=== PATIENT | female | born 1955 | race Caucasian/White ===

== ENCOUNTER 2018-05-01 06:03 | Day surgery (SDC) | payer MEDICARE, OTHER ==
[2018-04-30 13:45] LABS: Source, Urine Clean Catch
[2018-04-30 18:14] LABS: Bacteria Many /hpf; Squamous Epithelial Cells Few /hpf (Few); White Blood Cells, Urine 50-100 /hpf (0-5)
[2018-04-30 18:15] LABS: Calcium Oxalate Crystals Many /hpf; Red Blood Cells, Urine 0-2 /hpf (0-2)
[~2018-05-01] VITALS: Ht 165.1 cm; Wt 84.8 kg
[~2018-05-01 06:03] MED LIST: ACEDIPPM PO; ACYC400 PO; ACYC800 PO; ALPR.25 PO; ALPR.5 PO; AMIT10 PO; AMIT50 PO; AMIT75; AMIT75 PO; AMITRIPTYLINE PO; Amitiza24 MCG PO; Amitriptyline100 MG PO; BUPR150ER PO; CYCL10 PO; Citalopram HBr40 MG PO; DULO30 PO; DULO60 PO; ESOM20 PO; ESTRTP VAG; FAMO20 PO; FOLI400 PO; HYDACE10B PO; LOSHYD; METO10 PO; MYRBETRIQ25 MG PO; NITR100CA PO; Nitrostat0.4 MG SL; Norco 10-325 T1 EACH PO; OLAN10; OMEP20ER PO; OMEPRAZOLE MAGN20 MG PO; OXYC20ER PO; OXYC30ER PO; OXYC40ER PO; Omeprazole20 M1 PO; PROM25 PO; SULTRISS PO; TOBDEXOPO LEFTEYE; TOLT4 PO; [UNRECOGNIZED DRUG - REMARK]; [UNRECOGNIZED DRUG - REMARK]; [UNRECOGNIZED DRUG - REMARK]
--- NOTE | 2018-05-01 06:51 | NUR ---
History, Chart, Medications and Allergies reviewed before start of procedure. Patient confirms NPO status and agrees with scheduled surgery. Lungs clear T/O to Auscultation. Patient reports completing Chlorhexadine shower X2 prior to admission to hospital. Pre-Op teaching done. Pt verbalizes understanding. PATIENT REFUSAL TO REMOVE JEWELRY SIGNED AND ON THE CHART. NOSE PIERCING TAPED.
--- NOTE | 2018-05-01 07:34 | NUR ---
GRAIN LOADER REPORT COMPLETED AT BEDSIDE WITH JONATHAN HARPER. PATIENT UP FOR UNMEASURED VOID IMMEDIATELY PRESURGICALLY. DUE TO LATE IDENTIFIED ELEVATION IN URINE CULTURE BACTERIA, CIPRO 400 MG IV ADDED TO PATIENT'S INTRAOPERATIVE ORDERS. TRACKER EXPLAINED TO SIGNIFICANT OTHER AND OPPORTUNITY FOR QUESTIONS PROVIDED.
--- NOTE | 2018-05-01 18:16 | NUR ---
SHIFT SUMMARY PT EATING AND DRINKING, VOIDING, PASSING GAS. PT PAIN TOLERABLE AT THIS TIME. PT REPORTS GÓMEZ DOING BETTER. PT WORKED WITH THERAPY EARLIER TODAY. PT HAS TEDS/PAS/POLAR PAC IN PLACE. PT BEEN UP TO CHAIR. PT USING CALL LIGHT APPR. PT BEEN ASSISTED WITH ADL'S PRN. FAMILY IN/OUT OF ROOM.
--- NOTE | 2018-05-01 18:27 | NUR ---
PT AMBULATED IN HALLWAY EARLIER WITH SBA WITH WALKER AND GAITBELT.
--- NOTE | 2018-05-02 03:46 | NUR ---
SUMMARY PT HAS DONE WELL THROUGH THE NIGHT. PAIN MANAGED WITH PO PAIN MEDS. TOLERATING PO INTAKE. AMBULATING IN HALLS, 1 ASSIST W/WALKER & GAIT BELT. ASA WRAP REMAINS C/D/I. TEDS ON, SCD'S AND POLAR PACK WHILE IN BED. CALL LIGHT IN REACH. WCTM
[2018-05-02 04:58] LABS: BASOPHILS ABSOLUTE AUTO 0.04 K/mm3 (0.00-0.23); BASOPHILS PERCENT AUTO 0 % (0-2); EOSINOPHILS ABSOLUTE AUTO 0.02 K/mm3 (0.00-0.68); EOSINOPHILS PERCENT AUTO 0 % (0-6); Hematocrit 34.2 % (33.0-51.0); Hemoglobin 10.5 g/dL (11.5-16.0); IMMATURE GRAN ABSOLUTE AUTO 0.05 K/mm3 (0.00-0.10); IMMATURE GRAN PERCENT AUTO 1 % (0-1); LYMPHOCYTES ABSOLUTE AUTO 1.56 K/mm3 (0.84-5.20); LYMPHOCYTES PERCENT AUTO 15 % (21-46); MONOCYTES ABSOLUTE AUTO 1.14 K/mm3 (0.16-1.47); MONOCYTES PERCENT AUTO 11 % (4-13); Mean Corpuscular HGB 33.1 pg (26.0-34.0); Mean Corpuscular HGB Conc 30.7 g/dL (31.5-36.5); Mean Corpuscular Volume 108 fL (80-100); Mean Platelet Volume 9.8 fL (9.1-12.4); NEUTROPHILS ABSOLUTE AUTO 7.66 K/mm3 (1.96-9.15); NEUTROPHILS PERCENT AUTO 73 % (41-73); Platelet Count 148 K/mm3 (150-400); RDW Coefficient Variation 12.9 % (11.7-14.2); RDW Standard Deviation 51.7 fL (35.1-46.3); Red Blood Cell Count 3.17 M/mm3 (3.80-5.20); White Blood Cell Count 10.47 K/mm3 (4.00-11.30)
[2018-05-02 05:14] LABS: Anion Gap 8 mmol/L (6-16); Blood Urea Nitrogen 18 mg/dL (8-24); Bun/Creatinine Ratio 19.7 (12.0-20.0); CO2, Blood 28 mmol/L (21-32); Calcium, Blood 7.9 mg/dL (8.5-10.1); Chloride, Blood 106 mmol/L (98-108); Creatinine, Blood 0.92 mg/dL (0.40-1.00); Glomerular Filtration Rate >60 (60-); Glucose, Blood 91 mg/dL (70-99); Potassium, Blood 3.7 mmol/L (3.5-5.5); Sodium, Blood 142 mmol/L (136-145)
[2018-05-02] MEDS ORDERED: ASPI325EC PO (08:05)
--- NOTE | 2018-05-02 11:25 | NUR ---
PATIENT D/C'D HOME WITH SO AT THIS TIME. PATIENT STATES UNDERSTANDING OF MEDS, ACTIVITY, OP PT, WOUND CARE, ETC. TOLERATING PO. VOIDING WELL. STATES PAIN AT TOLERABLE LEVEL. IV D/C' INTACT, SITE CLEAR. NO ACUTE CHANGES OR C/O.
== END 2018-05-02 11:52 | disposition home or self-care (01) ==
LOC: ORSCMMR 06:03 → ORD 07:30 → ORSCMMR 07:30 → ORD 10:00 → SURS 10:39 → ORSCMMR 05-02 11:52
PROVIDERS: Nurse Practitioner Women's Health; Orthopaedic Surgery
PROC: 0SRC0JA Replacement of Right Knee Joint with Synthetic Substitute, Uncemented, Open Approach (ICD-10-PCS; principal; 2018-05-01 07:30)
DX: M17.11 Unilateral primary osteoarthritis, right knee (principal); F31.9 Bipolar disorder, unspecified; Z79.899 Other long term (current) drug therapy
CPT/HCPCS: 36415; 73560-RT; 80048; 81015; 85025; 86850; 86900; 86901; 87077; 87086; 87186; 88300; 97110; 97116; 97162; 97530; C1776; J0171; J0690; J0735; J0744; J1100; J1885; J2250; J2370; J2405; J2795; J3010; J7120; Q0163

== ENCOUNTER → 2018-05-14 | Outpatient (CLI) | payer MEDICARE, OTHER ==
[~2018-05-14] MED LIST changes: +ASPI325EC PO
[2018-05-14 14:09] LABS: Source, Urine Clean Catch
[2018-05-14 17:59] LABS: Appearance, Urine Hazy (Clear); Bilirubin, Urine Neg (Neg); Blood, Urine 1+ (Neg); Color, Urine Yellow (P-Yellow); Glucose Qualitative, Urine Neg (Neg); Ketones, Urine 1+ (Neg); Leukocyte Esterase, Urine 3+ (Neg); Nitrite, Urine Neg (Neg); Protein, Urine 2+ (Neg); Specific Gravity, Urine 1.015 (1.003-1.022); Urobilinogen, Urine 2+ (Normal); pH, Urine 6.5 (5.0-8.0)
[2018-05-14 18:47] LABS: White Blood Cells, Urine 50-100 /hpf (0-5)
[2018-05-14 18:48] LABS: Bacteria Many /hpf; Squamous Epithelial Cells Mod /hpf (Few); Uric Acid Crystals Few /hpf
== END ==
LOC: LAB 14:02 → LAB SHORT 14:02
PROVIDERS: Nurse Practitioner Women's Health
DX: Z01.812 Encounter for preprocedural laboratory examination (principal); N39.46 Mixed incontinence
CPT/HCPCS: 81001; 87077; 87086; 87186

== ENCOUNTER → 2018-09-11 | Outpatient (CLI) | payer MEDICARE, OTHER ==
[2018-09-11 11:39] LABS: Source, Urine Clean Catch
[2018-09-11 13:05] LABS: Bilirubin, Urine Neg (Neg); Blood, Urine 1+ (Neg); Glucose Qualitative, Urine Neg (Neg); Ketones, Urine 1+ (Neg); Leukocyte Esterase, Urine 3+ (Neg); Nitrite, Urine Pos (Neg); Protein, Urine 2+ (Neg); Specific Gravity, Urine 1.025 (1.003-1.022); Urobilinogen, Urine 2+ (Normal)
[2018-09-11 13:18] LABS: Appearance, Urine Hazy (Clear); Color, Urine Yellow (P-Yellow)
[2018-09-11 13:19] LABS: Bacteria Mod /hpf; Red Blood Cells, Urine 0-2 /hpf (0-2); Squamous Epithelial Cells Few /hpf (Few)
== END ==
LOC: LAB SHORT 11:36 → LAB 11:36
PROVIDERS: Obstetrics & Gynecology
DX: Z01.812 Encounter for preprocedural laboratory examination (principal); N39.46 Mixed incontinence; N36.42 Intrinsic sphincter deficiency (ISD)
CPT/HCPCS: 81001; 87077; 87086; 87186

== ENCOUNTER 2019-03-28 12:42 | Inpatient (IN) | payer MEDICARE, OTHER ==
[~2019-03-28] VITALS: Ht 170.2 cm; Wt 84.8 kg
[~2019-03-28 12:42] MED LIST changes: -AMIT10 PO; +Amitriptyline150 MG PO
[2019-03-28 13:17] LABS: Hematocrit 35.8 % (33.0-51.0); Hemoglobin 11.4 g/dL (11.5-16.0); Mean Corpuscular HGB 32.4 pg (26.0-34.0); Mean Corpuscular HGB Conc 31.8 g/dL (31.5-36.5); Mean Corpuscular Volume 102 fL (80-100); Mean Platelet Volume 10.2 fL (9.1-12.4); Platelet Count 197 K/mm3 (150-400); RDW Coefficient Variation 13.1 % (11.7-14.2); Red Blood Cell Count 3.52 M/mm3 (3.80-5.20); White Blood Cell Count 17.01 K/mm3 (4.00-11.30)
[2019-03-28 13:25] LABS: Influenza A Negative (NEGATIVE); Influenza B Negative (NEGATIVE)
[2019-03-28 13:38] LABS: Alanine Aminotransfer (ALT/SGP 15 U/L (12-78); Albumin, Blood 2.7 g/dL (3.4-5.0); Albumin/Globulin Ratio 0.7 (0.8-1.8); Alk Phos 91 U/L (50-136); Anion Gap 9 mmol/L (6-16); Aspartate Aminotrans (AST/SGOT 20 U/L (12-37); Bilirubin, Total 0.6 mg/dL (0.1-1.0); Blood Urea Nitrogen 21 mg/dL (8-24); Bun/Creatinine Ratio 24.1 (12.0-20.0); CO2, Blood 25 mmol/L (21-32); Calcium, Blood 8.2 mg/dL (8.5-10.1); Chloride, Blood 102 mmol/L (98-108); Creatinine, Blood 0.87 mg/dL (0.40-1.00); Globulin, Blood 4.1 g/dL (2.2-4.0); Glomerular Filtration Rate >60 (60-); Glucose, Blood 84 mg/dL (70-99); Potassium, Blood 3.3 mmol/L (3.5-5.5); Sodium, Blood 136 mmol/L (136-145); Total Protein, Blood 6.8 g/dL (6.4-8.2)
[2019-03-28 13:40] LABS: BAND PERCENT MAN 29 % (0-8); BASOPHILS PERCENT MAN 0 % (0-2); EOSINOPHILS PERCENT MAN 0 % (0-6); LYMPHOCYTES PERCENT MAN 10 % (21-46); MONOCYTES ABSOLUTE MAN 0.68 K/mm3 (0.16-1.47); MONOCYTES PERCENT MAN 4 % (4-13); NEUTROPHILS ABSOLUTE MAN 14.62 K/mm3 (1.96-9.15); SEG NEUTROPHILS PERCENT MAN 57 % (41-73); TOTAL CELLS COUNTED 100
[2019-03-28] MEDS ORDERED: Paxil20 MG PO (15:12)
[2019-03-28] MEDS ORDERED: CELECOXIB200 MG PO (15:16)
--- NOTE | 2019-03-28 16:15 | NUR ---
PATIENT ARRIVED TO ICU ROOM 11 AFTER RECEIVING REPORT FROM JONATHAN ROSALES, ED, PATIENT ABLE TO AMBULATE FROM STRETCHER TO ROOM TOILET, VOIDED, AND THEN TO BED, SLIGHTLY SHORT OF BREATH AND TACHYPNEIC AFTER AMBULATION, PATIENT WAS PLACED ON MONITOR AND SBP IN UPPER 90'S WITH O2 SATUARTION IN MID 90'S ON RA, PATIENT ENCOURAGED TO COUGH AND BRING UP SECRETIONS, PATIENT VERBALIZED UNDERSTANDING, PATIENT ALSO STATED THAT SHE WANTS TO BE A FULL CODE AND EVERYTHING DONE WHILE IN THE HOSPITAL, AT BEDSIDE, PATIENT IS AFEBRILE, DENIES PAIN, ALERT AND ORIENTED x4, LUNG SOUNDS ARE COARSE, AND TIGHT THROUGHOUT, PATIENT HAS A HISTORY OF THROAT RECONSTRUCTION SURGERY A CHILD AND HAS PROBLEMS SWALLOWING AT TIMES, SUFFERS FROM CHRONIC CONSTIPATION WITH PERIODS OF TWO WEEKS WITHOUT HAVING A BM, VOIDS WITHOUT PROBLEMS, CLEAR YELLOW URINE, WARM BLANKETS GIVEN, CALL LIGHT GIVEN AND EXPLAINED, PATIENT VERBALIZED UNDERSTANDING, ORIENTED TO ROOM AND NEW ENVIRONMENT, THIRD LITER OF NS INFUSING WIDE OPEN, AZITHROMYCIN INFUSING WELL, THEN LR AT 12 CC/HR, LAB CALLED AND ASKED FOR A URINE SAMPLE, ALSO IMAGING HERE TO DO ORDERED ECHO, PATIENT IS RESTING WELL AT THIS TIME, CALL LIGHT IN REACH, WILL CONTINUE TO MONITOR.
--- NOTE | 2019-03-28 17:55 | NUR ---
PATIENT RESTING COMFORTABLY, FAMILY WAS AT BEDSIDE BUT WENT HOME, ECHO DONE, UA SENT, PATIENT UP TO ROOM TOILET WITH ONE ASSIST, SBP'S NOW IN LOW 100'S, SECOND PIV STARTED ON EARL, PATIENT TOLERATED WELL, IVF'S LR AT 125 CC/HR INFUSING NOW AFTER 3 L NS BOLUSES ALSO HAS POTASSIUM CHLORIDE 20 MEQ'S INFUSING, K+ 3.3, PATIENT TRYING TO RELAX AND GET COMFORTABLE, CALL LIGHT IN REACH, WILL CONTINUE TO MONITOR.
[2019-03-28 18:08] LABS: Source, Urine Clean Catch
[2019-03-28 18:12] LABS: Appearance, Urine Hazy (Clear); Bilirubin, Urine Neg (Neg); Blood, Urine 1+ (Neg); Color, Urine Yellow (P-Yellow); Glucose Qualitative, Urine Neg (Neg); Ketones, Urine Neg (Neg); Leukocyte Esterase, Urine 3+ (Neg); Nitrite, Urine Pos (Neg); Protein, Urine Neg (Neg); Specific Gravity, Urine 1.015 (1.003-1.022); Urobilinogen, Urine 1+ (Normal)
[2019-03-28 18:23] LABS: Bacteria Many /hpf; Calcium Oxalate Crystals Few /hpf; Red Blood Cells, Urine 0-2 /hpf (0-2); Squamous Epithelial Cells Few /hpf (Few); White Blood Cells, Urine 50-100 /hpf (0-5)
--- NOTE | 2019-03-28 19:31 | NUR ---
ASSUMED CARE OF PT, BEDSIDE REPORT RECEIVED. PT IS SITTING UPRIGHT IN BED WITH ARMS BRACED AGAINST BEDRAILS, C/O FEELING THAT SHE IS TOO HOT AT THIS TIME. SHE IS SPEAKING IN FEW WORD SENTENCES WITH VISIBLE INCREASED WORK OF BREATHING AT THIS TIME, RESP RATE MID 20S, SATS HIGH 90S WITH OXYGEN VIA NC AT 3 L/MIN, PT STATES THAT BREATHING IS ACTUALLY FEELING IMPROVED FROM ARRIVAL IN ER, LUNGS ARE COARSE THROUGHOUT WITH SCATTERED INS/EXP WHEEZES, COUGH SOUNDS PRODUCTIVE HOWEVER NO SPUTUM HAS BEEN OBTAINED OF THIS TIME. PT ENCOURAGED TO PROVIDE SPUTUM SPECIMEN SOON SHE IS ABLE. HRR, SINUS ON MONITOR, RATE 80S AT THIS TIME, PRESSURE MAINTAINING, SKIN PWD, NO EDEMA, BRISK CAP REFILL. ABD SOFT, ACTIVE BOWEL TONES, PT DID NOT TOLERATE DINNER WELL SECONDARY TO INCREASED DYSPNEA, SHE REQUESTS SOMETHING TO SNACK ON AT THIS TIME, DISCUSSED SMALLER AMOUNTS PO AND INCREASED FREQUENCY IN ORDER TO TOLERATE PO INTAKE AT THIS TIME, JELLO PROVIDED, WILL MONITOR. PT HAS BEEN UP TO VOID WITH DAY SHIFT RN, WILL ASSIST NEEDED.
[2019-03-28 21:20] LABS: Adenovirus Not Detected (NOT DETECT); Bordetella pertussis Not Detected (NOT DETECT); Chlamydophila pneumoniae Not Detected (NOT DETECT); Coronavirus 229E Not Detected (NOT DETECT); Coronavirus HKU1 Not Detected (NOT DETECT); Coronavirus NL63 Not Detected (NOT DETECT); Coronavirus OC43 Not Detected (NOT DETECT); Human Metapneumovirus Not Detected (NOT DETECT); Human Rhinovirus/Enterovirus Not Detected (NOT DETECT); Influenza A Not Detected (NOT DETECT); Influenza A/2009-H1 Not Detected (NOT DETECT); Influenza A/H1 Not Detected (NOT DETECT); Influenza A/H3 Not Detected (NOT DETECT); Influenza B Not Detected (NOT DETECT); Mycoplasma pneumoniae Not Detected (NOT DETECT); Parainfluenza Virus 1 Not Detected (NOT DETECT); Parainfluenza Virus 2 Not Detected (NOT DETECT); Parainfluenza Virus 3 Not Detected (NOT DETECT); Parainfluenza Virus 4 Not Detected (NOT DETECT); Respiratory Syncytial Virus Detected (NOT DETECT)
[2019-03-29 01:53] LABS: Hematocrit 30.1 % (33.0-51.0); Hemoglobin 9.8 g/dL (11.5-16.0); Mean Corpuscular HGB 33.7 pg (26.0-34.0); Mean Corpuscular HGB Conc 32.6 g/dL (31.5-36.5); Mean Corpuscular Volume 103 fL (80-100); Mean Platelet Volume 10.6 fL (9.1-12.4); Platelet Count 141 K/mm3 (150-400); RDW Coefficient Variation 13.2 % (11.7-14.2); RDW Standard Deviation 49.8 fL (35.1-46.3); Red Blood Cell Count 2.91 M/mm3 (3.80-5.20); White Blood Cell Count 10.89 K/mm3 (4.00-11.30)
[2019-03-29 01:56] LABS: Anion Gap 3 mmol/L (6-16); Blood Urea Nitrogen 17 mg/dL (8-24); Bun/Creatinine Ratio 23.7 (12.0-20.0); CO2, Blood 25 mmol/L (21-32); Calcium, Blood 7.5 mg/dL (8.5-10.1); Chloride, Blood 114 mmol/L (98-108); Creatinine, Blood 0.72 mg/dL (0.40-1.00); Glomerular Filtration Rate >60 (60-); Glucose, Blood 119 mg/dL (70-99); Potassium, Blood 4.4 mmol/L (3.5-5.5); Sodium, Blood 142 mmol/L (136-145); Troponin I 0.023 ng/mL (0.000-0.040)
[2019-03-29 02:13] LABS: BAND PERCENT MAN 22 % (0-8); BASOPHILS PERCENT MAN 0 % (0-2); EOSINOPHILS PERCENT MAN 0 % (0-6); LYMPHOCYTES ABSOLUTE MAN 0.76 K/mm3 (0.84-5.20); LYMPHOCYTES PERCENT MAN 7 % (21-46); MONOCYTES PERCENT MAN 1 % (4-13); NEUTROPHILS ABSOLUTE MAN 10.01 K/mm3 (1.96-9.15); SEG NEUTROPHILS PERCENT MAN 70 % (41-73); TOTAL CELLS COUNTED 100
--- NOTE | 2019-03-29 05:51 | NUR ---
PT RESTS QUIETLY THROUGHOUT SHIFT, TOLERATES LIQUIDS WELL, DID NOT TOLERATE HAMBURGER THAT SHE HAD ORDERED FOR DINNER LAST NOC JUST PRIOR TO SHIFT CHANGE SECONDARY TO INCREASED DYSPNEA WITH EATING. LUNGS REMAIN COARSE WITH SCATTERED INS/EXP WHEEZES, SENTENCES ARE SHORT, PT STATES THAT BREATHING DOES FEEL IMPROVED FROM ARRIVAL TO ER, SHE HAS MAINTAINED SATS WITH OXYGEN AT 3 L/MIN VIA NASAL CANNULA THROUGHOUT NOC, INTERMITTENT DYSPNEA NOTED AT REST, CONSISTENT DYSPNEA ON EXERTION. HRR, SINUS RHYTHM CONTINUES RATE 80-90S, PRESSURES HAVE IMPROVED THROUGHOUT NOC, CONTINUES WITHOUT EDEMA, CAP REFILL BRISK. URINE COLOR HAS IMPROVED TO CLEAR TANYA, STRONG ODOR NOTED. PT UP TO BSC WITH 1 PERSON SBA FOR LINE MANAGEMENT, GAIT IS STEADY, SHE IS NOTED TO HAVE INCREASED WORK OF BREATHING WHEN UP HOWEVER RECOVERS WITHIN 3 MINUTES ON RETURN TO BED. SHE HAS REPOSITIONED HERSELF WELL THROUGHOUT NOC.
--- NOTE | 2019-03-29 07:30 | NUR ---
ASSUMED CARE AT 0700. REPORT FROM EILEEN CASTILLO. PT RESTING IN BED. A&O X 4. ANSWERS QUESTIONS APPROPRIATELY. C/O SOB c MINIMAL EXERTION. PT ON 2L O2 VIA NC. O2 SATS MID 90'S. LUNGS COARSE THROUGHOUT c WHEEZING. TACHYPNEIC, LABORED RESP. RATE INCREASES WHEN PT TRYING TO SPEAK. ABLE TO TRANSFER TO BSC BUT BECOMES SOB, TACHYPNEIC. ASSISTED TO RECLINER. PT C/O CHRONIC BACK PAIN, STATES HOME MEDS HAVE NOT BEEN ORDERED FOR HER, WILL DISCUSS c DR MCCALL. IVF INFUSING s DIFFICULTY. CALL LIGHT IN REACH. WILL CONTINUE TO MONITOR.
--- NOTE | 2019-03-29 09:40 | NUR ---
DR MCCALL IN ROOM TO SEE PT THIS AM. O2 REMOVED DURING ASSESSMENT. WHEN ASSISTED PT TO BSC AND BACK TO BED, PT BECAME TACHYPNEIC AND C/O SOB, O2 SATS REMAINED MID 90'S. O2 PLACED AT 2L VIA NC FOR COMFORT. RT AT BEDSIDE FOR BREATHING TX. IVF D/C'D PER DR MCCALL. WILL CONTINUE TO MONITOR.
--- NOTE | 2019-03-29 11:56 | NUR ---
CALL FROM DR. NI DAN STATES THAT GIVEN THE PT'S SYMPTOMS, HE WILL NOT PLAN ON ENDOSCOPY AT THIS TIME. PT MAY EAT REGULAR DIET TOLERATED AND HE WILL SEE HER THIS AFTERNOON.
--- NOTE | 2019-03-29 17:49 | NUR ---
SHIFT SUMMARY PT A&O X 4. HAS BEEN UP TO CHAIR MULTIPLE TIMES TODAY. PT SOB AND TACHYPNEIC c MINIMAL EXERTION. LUNGS COARSE THROUGHOUT c RHONCHI. PT P/W/D. PT WORE O2 INTERMITTANTLY THIS SHIFT FOR COMFORT. O2 SATS REMAINED MID 90'S ON RA. PT CURRENTLY ON RA. VSS. PT SEEN BY JOSE R DAN AND CAL TODAY. REPORT TO ONCOMING NURSE.
[2019-03-30 04:05] LABS: BASOPHILS ABSOLUTE AUTO 0.01 K/mm3 (0.00-0.23); BASOPHILS PERCENT AUTO 0 % (0-2); EOSINOPHILS PERCENT AUTO 0 % (0-6); Hematocrit 31.5 % (33.0-51.0); Hemoglobin 10.3 g/dL (11.5-16.0); IMMATURE GRAN ABSOLUTE AUTO 0.08 K/mm3 (0.00-0.10); IMMATURE GRAN PERCENT AUTO 1 % (0-1); LYMPHOCYTES ABSOLUTE AUTO 0.67 K/mm3 (0.84-5.20); LYMPHOCYTES PERCENT AUTO 8 % (21-46); MONOCYTES ABSOLUTE AUTO 0.34 K/mm3 (0.16-1.47); MONOCYTES PERCENT AUTO 4 % (4-13); Mean Corpuscular HGB 33.9 pg (26.0-34.0); Mean Corpuscular HGB Conc 32.7 g/dL (31.5-36.5); Mean Corpuscular Volume 104 fL (80-100); Mean Platelet Volume 10.2 fL (9.1-12.4); NEUTROPHILS ABSOLUTE AUTO 7.65 K/mm3 (1.96-9.15); NEUTROPHILS PERCENT AUTO 87 % (41-73); Platelet Count 190 K/mm3 (150-400); RDW Coefficient Variation 13.3 % (11.7-14.2); RDW Standard Deviation 49.7 fL (35.1-46.3); Red Blood Cell Count 3.04 M/mm3 (3.80-5.20); White Blood Cell Count 8.75 K/mm3 (4.00-11.30)
[2019-03-30 04:28] LABS: Albumin, Blood 2.2 g/dL (3.4-5.0); Anion Gap 5 mmol/L (6-16); Blood Urea Nitrogen 14 mg/dL (8-24); Bun/Creatinine Ratio 23.5 (12.0-20.0); CO2, Blood 25 mmol/L (21-32); Calcium, Blood 8.3 mg/dL (8.5-10.1); Chloride, Blood 111 mmol/L (98-108); Glomerular Filtration Rate >60 (60-); Glucose, Blood 126 mg/dL (70-99); Phosphorus, Blood 2.4 mg/dL (2.5-4.9); Sodium, Blood 141 mmol/L (136-145)
--- NOTE | 2019-03-30 06:46 | NUR ---
PT A&O, PAIN CONTROLLED WITH OXY AND NORCO. ANXIETY CONTOLLED WITH XANAX. O2 VIA NC FOR COMFORT WHEN PT FEELS SOB, ELEVATED BLOOD PRESSURE POSSIBLY PAIN AND ANXIETY RELATED. NO ACUTE EVENTS, PLAN TO CHANGE STATUS IN THE AM.
--- NOTE | 2019-03-30 07:20 | NUR ---
ASSUMED CARE AT 0700. PT RESTING IN BED. WAKES c VERBAL STIMULI. C/O CHRONIC BACK PAIN, REQUESTING MEDS WHEN APPROPRIATE TIME. REPORTS CONTINUES SOB c EXERTION LAST NOC. CONTINUES TO BE TACHYPNEIC. STATES SHE WAS NERVOUS TO FALL, CAUSING INCREASED ANXIETY AND SOB. INTERMITTANTLY USING 2L O2 VIA NC FOR SOB. O2 SATS REMAIN >95% ON RA. HTN NOTED, PT DENIES HX OF THIS. LUNGS COARSE THROUGHOUT. PT P/W/DAngelita RENEE. WILL CONTINUE TO MONITOR.
--- NOTE | 2019-03-30 08:50 | NUR ---
DR MCCALL AT BEDSIDE FOR ASSESSMENT. PLAN FOR CHEST XRAY, MRSA SWAB FROM [facility] SENT TO LAB. POSSIBLE STATUS CHANGE TODAY.
[2019-03-30 14:36] LABS: PO2 Arterial 101 mmHg (80-100); pH Blood Arterial 7.27 (7.35-7.45)
--- NOTE | 2019-03-30 14:45 | NUR ---
PT SITTING IN CHAIR FAMILY AT BEDSIDE. PT DIFFICULT TO WAKE, WAKES c PAINFUL STIMULI, ANSWERS QUESTIONS APPROPRIATELY, FOLLOWS COMMANDS BUT APPEARS TO FALL ASLEEP WHEN UNDISTURBED. TACHPNEIC. RT CALLED FOR ABG. CHEMBG 138. MOVED PT TO BED. 2ND IV STARTED. O2 SATS 85% WHEN O2 REMOVED, REPLACED 2L NC, O2 SATS MID 90'S. CALL PLACED TO DR MCCALL. NOTIFIED OF LABS, ORDERS FOR BIPAP AND PT TO REMAIN IN ICU. RT IN ROOM FOR BIPAP PLACEMENT. FAMILY UPDATED.
--- NOTE | 2019-03-30 17:18 | NUR ---
SHIFT SUMMARY ATTEMPTED TO STATUS CHANGE PT TODAY. PT INCREASINGLY SOMNOLENT DURING THIS SHIFT. SEE NOTE. PT RESPONDED WELL TO BIPAP. ALERTNESS IMPROVED, RESPONSES TO VERBAL STIMULI. MAKING CONVERSATION c SO IN ROOM. LUNGS CONTINUE TO BE COARSE c CRACKLES TO LEFT SIDE. VSS. REPORT TO ONCOMING NURSE.
--- NOTE | 2019-03-30 19:33 | NUR ---
ASSUME CARE ASSUMED CARE OF PT AT 1900. PATIENT DROWSY, BUT AROUSABLE. PT ON BIPAP / 35% SATS ABOVE 94%. LUNGS COARSE THROUGHOUT, LEFT SIDE WORSE. PULSES STRONG THROUGHOUT. PATIENT A&OX3. AND BEDSIDE. PATIENT IVS PATENT WITH GOOD BLOOD RETURN AND INFUSING. WILL CONTINUE TO [facility].
[2019-03-31 03:42] LABS: BASOPHILS ABSOLUTE AUTO 0.03 K/mm3 (0.00-0.23); BASOPHILS PERCENT AUTO 0 % (0-2); EOSINOPHILS PERCENT AUTO 0 % (0-6); Hematocrit 33.8 % (33.0-51.0); Hemoglobin 11.2 g/dL (11.5-16.0); IMMATURE GRAN ABSOLUTE AUTO 0.36 K/mm3 (0.00-0.10); IMMATURE GRAN PERCENT AUTO 3 % (0-1); LYMPHOCYTES ABSOLUTE AUTO 1.24 K/mm3 (0.84-5.20); LYMPHOCYTES PERCENT AUTO 12 % (21-46); MONOCYTES ABSOLUTE AUTO 0.71 K/mm3 (0.16-1.47); MONOCYTES PERCENT AUTO 7 % (4-13); Mean Corpuscular HGB 35.9 pg (26.0-34.0); Mean Corpuscular HGB Conc 33.1 g/dL (31.5-36.5); Mean Platelet Volume 10.2 fL (9.1-12.4); NEUTROPHILS ABSOLUTE AUTO 8.33 K/mm3 (1.96-9.15); NEUTROPHILS PERCENT AUTO 78 % (41-73); Platelet Count 238 K/mm3 (150-400); RDW Coefficient Variation 13.9 % (11.7-14.2); RDW Standard Deviation 52.6 fL (35.1-46.3); Red Blood Cell Count 3.12 M/mm3 (3.80-5.20); White Blood Cell Count 10.67 K/mm3 (4.00-11.30)
[2019-03-31 03:43] LABS: Mean Corpuscular Volume 108 fL (80-100)
[2019-03-31 04:00] LABS: Alanine Aminotransfer (ALT/SGP 17 U/L (12-78); Albumin, Blood 2.4 g/dL (3.4-5.0); Albumin/Globulin Ratio 0.6 (0.8-1.8); Alk Phos 88 U/L (50-136); Anion Gap 4 mmol/L (6-16); Aspartate Aminotrans (AST/SGOT 22 U/L (12-37); Bilirubin, Total 0.3 mg/dL (0.1-1.0); Blood Urea Nitrogen 18 mg/dL (8-24); Bun/Creatinine Ratio 27.7 (12.0-20.0); CO2, Blood 29 mmol/L (21-32); Calcium, Blood 8.7 mg/dL (8.5-10.1); Chloride, Blood 109 mmol/L (98-108); Creatinine, Blood 0.65 mg/dL (0.40-1.00); Glomerular Filtration Rate >60 (60-); Glucose, Blood 77 mg/dL (70-99); Potassium, Blood 3.8 mmol/L (3.5-5.5); Sodium, Blood 142 mmol/L (136-145); Total Protein, Blood 6.4 g/dL (6.4-8.2)
[2019-03-31 04:06] LABS: Percent Saturation 22.5 % (15.0-50.0)
--- NOTE | 2019-03-31 05:56 | NUR ---
SHIFT SUMMARY PATIENT WORE BIPAP FOR MOST OF THE NIGHT. 10 25%. PATIENT ABLE TO COUGH UP SECRETIONS MORE EFFECTIVELY, PATIENT A&O. FOLLOWS COMMANDS, WAKES UP WITH VERBAL STIMULI. EASY TO AROUSE. PATIENT STATES SHE FEELS LIKE SHE IS GOING TO R/T CURRENT ILLNESS. PATIENT REFUSED NARCOTICS/PAIN MEDS/ANXIOLYTICS FOR FEAR OF BEING TOO SLEEPY TO BREATHE WELL. CHRONIC PAIN AN ISSUE, BUT PATIENT REFUSED ANYTHING OTHER THAN TYLENOL SO SBP WAS HIGHER. PATIENT UP TO BEDSIDE COMMODE WITH MINIMAL ASSIST. VSS. AFEBRILE. WILL CONTINUE TO MONITOR UNTIL REPORT GIVEN TO DAY SHIFT RN.
--- NOTE | 2019-03-31 07:40 | NUR ---
ASSUMED CARE OF PT AT 0700. REPORT FROM CAMRYN CASTILLO. PT RESTING IN BED. BIPAP IN PLACE, 03/07 25%. LUNGS COARSE THROUGHOUT c RHONCI ON LEFT SIDE. WET COUGH. PT P/W/D. ANSWERS QUESTIONS APPROPRIATELY. ABLE TO REPOSITION SELF IN BED. HTN NOTED. PT C/O BACK PAIN. REPORTS MODERATE RELIEF FROM TYLENOL LAST NOC. WILL CONTINUE TO MONITOR.
--- NOTE | 2019-03-31 09:07 | NUR ---
DR MCGOWAN AT BEDSIDE. PT UP TO CHAIR FOR BREAKFAST. BIPAP REMOVED. PLACED PT ON 2L O2 VIA NC. O2 SATS >95%. PT A&OX 4. WILL CONTINUE TO MONITOR.
--- NOTE | 2019-03-31 09:50 | NUR ---
DR MCCALL IN TO SEE PT, CARE DISCUSSED. PLAN FOR O2 SATS 90-98%. MONITOR FOR AMS. WILL ATTEMPT TO HAVE PT WEAR BIPAP MUCH POSSIBLE TODAY. PT REFUSING ANY PAIN MEDS AT THIS TIME. REQUESTING XANAX. WILL MEDICATE ORDERED.
--- NOTE | 2019-03-31 17:44 | NUR ---
SHIFT SUMMARY PT INTERMITTANTLY WORE BIPAP TODAY, C/O ANXIETY AND INABILITY TO RELAX. RESTARTED HOME PAIN MEDS AT LOWER DOSE TO AVOID WITHDRAWLS. MEDICATED c XANEX NEEDED. PT ON RA WHEN NOT ON BIPAP. PT REMAINED A&OX 4 ENTIRE SHIFT. LUNGS CONTINUE TO BE COARSE THROUGHOUT c RHONCI ON LEFT SIDE. INCREASED PRODUCTIVE COUGH c FOREMAN SPUTUM. REPORT TO ONCOMING NURSE.
--- NOTE | 2019-03-31 19:10 | NUR ---
ASSUME CARE: REPORT RECIEVED FROM OFF GOING RN TAINA. MONITOR INTACT SHOWING SINUS RHYTHM. HEART RATE 90'S. RESTS QUIETLY WHEN UNDISTURBED.REMAINS ON BIPAP 12/5 WITH FIO2 21% LUNG SOUNDS COARSE WITH RHONCHI. BECOMES TACHYPNIC WITH ACTIVITY. SPO2 92-94% ABDOMEN SOFT WITH BOWEL SOUNDS FOUR QUADS. VOIDS TANYA URINE PER BSC. COOPERATIVE TO CARES. PAS TO LOWER EXTREMITIES. CONTINUE TO MONITOR AND REPORT CHANGE IN PATIENT CONDITION. PEDAL PULSES PRESENT NO EDEMA NOTED
[2019-04-01 04:08] LABS: Mean Corpuscular HGB 33.5 pg (26.0-34.0); Mean Corpuscular HGB Conc 33.3 g/dL (31.5-36.5); Mean Platelet Volume 9.7 fL (9.1-12.4); Platelet Count 207 K/mm3 (150-400); RDW Coefficient Variation 12.8 % (11.7-14.2); RDW Standard Deviation 45.9 fL (35.1-46.3); Red Blood Cell Count 3.28 M/mm3 (3.80-5.20); White Blood Cell Count 7.92 K/mm3 (4.00-11.30)
[2019-04-01 04:11] LABS: Mean Corpuscular Volume 101 fL (80-100)
[2019-04-01 04:39] LABS: Alanine Aminotransfer (ALT/SGP 17 U/L (12-78); Albumin, Blood 2.1 g/dL (3.4-5.0); Albumin/Globulin Ratio 0.6 (0.8-1.8); Alk Phos 78 U/L (50-136); Anion Gap 7 mmol/L (6-16); Aspartate Aminotrans (AST/SGOT 22 U/L (12-37); Bilirubin, Total 0.5 mg/dL (0.1-1.0); Blood Urea Nitrogen 11 mg/dL (8-24); CO2, Blood 27 mmol/L (21-32); Calcium, Blood 8.1 mg/dL (8.5-10.1); Chloride, Blood 103 mmol/L (98-108); Creatinine, Blood 0.61 mg/dL (0.40-1.00); Globulin, Blood 3.7 g/dL (2.2-4.0); Glomerular Filtration Rate >60 (60-); Glucose, Blood 75 mg/dL (70-99); Potassium, Blood 3.4 mmol/L (3.5-5.5); Sodium, Blood 137 mmol/L (136-145); Total Protein, Blood 5.8 g/dL (6.4-8.2)
[2019-04-01 05:12] LABS: BAND PERCENT MAN 1 % (0-8); BASOPHILS PERCENT MAN 0 % (0-2); EOSINOPHILS PERCENT MAN 0 % (0-6); LYMPHOCYTES ABSOLUTE MAN 1.02 K/mm3 (0.84-5.20); LYMPHOCYTES PERCENT MAN 13 % (21-46); METAMYELOCYTE ABSOLUTE MAN 0.15 K/mm3 (0.00-0.00); METAMYELOCYTE PERCENT MAN 2 % (0-0); MONOCYTES ABSOLUTE MAN 0.47 K/mm3 (0.16-1.47); MONOCYTES PERCENT MAN 6 % (4-13); MYELOCYTE ABSOLUTE MAN 0.47 K/mm3 (0.00-0.00); MYELOCYTE PERCENT MAN 6 % (0-0); NEUTROPHILS ABSOLUTE MAN 5.78 K/mm3 (1.96-9.15); SEG NEUTROPHILS PERCENT MAN 72 % (41-73); TOTAL CELLS COUNTED 100
--- NOTE | 2019-04-01 05:53 | NUR ---
SHIFT SUMMARY; RESTS QUIETLY WHEN UNDISTURBED MONITOR INTACT SHOWING SINUS RHYTHM HEART RATE 90'S. LUNG SOUNDS COARSE RHONCHI T\O.REMAINS ON BIPAP 12/5 FIO2 21% ABDO MEN SOFT WITH NOWEL SOUNDS FOUR QUADS. PASSING FLATUS WHEN UP TO BSC VOIDS TANYA URINE PAS TO LOWER EXTREMITIES. GAIT STEADY WITH WTANDBY ASSIST TO BSC. REPOSITIONS SELF IN BED. CONTINUE TO MONITOR AND REPORT CHANGE IN PATIENT CONDITION
--- NOTE | 2019-04-01 07:00 | NUR ---
ASSUMED CARE: RECEIVED REPORT FROM NOC RN. CALL LIGHT ON UPON ENTERING ROOM. PT STATS SHE NEEDS TO USE THE BSC. PT UP TO BSC WITH MINIMAL CORD ASSIST. GAVE EDUCATION ON HOW TO REMOVE AND REPLACE NONVITAL CORDS TO USE BSC INDEPENDENTLY. PT ALSO EDUCATED ON FALL RISK AND TO CALL IF ANY POSSIBLE CONCERN OF FALL. NO ACUTE DISTRESS NOTED. WILL CONTINUE TO MONITOR AND ASSESS FURTHER.
--- NOTE | 2019-04-01 12:15 | NUR ---
TRANSFER TO 332 REPORT GIVEN TO MEDICAL RN THEN TRANSFERED BY WHEELCHAIR. NO S/S OF DISTRESS NOTED UPON TRANSFER.
--- NOTE | 2019-04-01 15:13 | NUR ---
PT ARRIVED AT 1200 VIA WHEEL CHAIR. ROOM SET UP FOR DROPLET PRECAUTIONS. PT AOX4 AND COOPERATIVE OF CARE. PT ORIENTED TO ROOM AND CALL LIGHT IN PLACE. PT HAS WALKER SO SHE CAN INDEPENDENTLY GO TO RESTOOM. NO SOB AT THIS TIME WILL CONTINUE TO MONITOR.
--- NOTE | 2019-04-01 17:17 | NUR ---
PT AOX4 AND COOPERATIVE OF CARE TODAY. PT HAS BEEN DOING WELL AND INDEPENDENT IN ROOM. PT SITTING IN BED AT THIS TIME. PT IS REQUESTING XANAX AND WILL BE TREATED PER EMAR.WILL CONTINUE TO MONITOR CALL LIGHT WITHING REACH.
--- NOTE | 2019-04-01 18:00 | NUR ---
Per admit trigger, I met with Rosio to offer information on ACP. She tells me she would like her SO to be her MPOA, and I gently explained to her how an ADvacned Directive would fit this purpose. She was happy to recieve this information. She feels she is getting stronger and hopes to return home in coming days. She reports a gregorio rosemary and was grateful for prayer. I will remain available.
[2019-04-02 05:11] LABS: BASOPHILS ABSOLUTE AUTO 0.05 K/mm3 (0.00-0.23); BASOPHILS PERCENT AUTO 1 % (0-2); Hematocrit 29.1 % (33.0-51.0); LYMPHOCYTES ABSOLUTE AUTO 1.51 K/mm3 (0.84-5.20); LYMPHOCYTES PERCENT AUTO 23 % (21-46); MONOCYTES ABSOLUTE AUTO 0.57 K/mm3 (0.16-1.47); MONOCYTES PERCENT AUTO 9 % (4-13); Mean Corpuscular HGB 35.8 pg (26.0-34.0); Mean Corpuscular HGB Conc 34.4 g/dL (31.5-36.5); Mean Platelet Volume 9.8 fL (9.1-12.4); NRBC ABSOLUTE 0.03 K/mm3 (0.00-0.02); NRBC Auto 0.4 /100 WBC (0.0-0.2); Platelet Count 190 K/mm3 (150-400); RDW Coefficient Variation 13.2 % (11.7-14.2); RDW Standard Deviation 47.7 fL (35.1-46.3); Red Blood Cell Count 2.79 M/mm3 (3.80-5.20); White Blood Cell Count 6.69 K/mm3 (4.00-11.30)
[2019-04-02 05:27] LABS: EOSINOPHILS ABSOLUTE AUTO 0.04 K/mm3 (0.00-0.68); EOSINOPHILS PERCENT AUTO 1 % (0-6); IMMATURE GRAN ABSOLUTE AUTO 0.78 K/mm3 (0.00-0.10); IMMATURE GRAN PERCENT AUTO 12 % (0-1); Mean Corpuscular Volume 104 fL (80-100); NEUTROPHILS ABSOLUTE AUTO 3.74 K/mm3 (1.96-9.15); NEUTROPHILS PERCENT AUTO 56 % (41-73)
[2019-04-02 05:31] LABS: Alanine Aminotransfer (ALT/SGP 17 U/L (12-78); Albumin, Blood 1.9 g/dL (3.4-5.0); Albumin/Globulin Ratio 0.6 (0.8-1.8); Alk Phos 65 U/L (50-136); Anion Gap 5 mmol/L (6-16); Aspartate Aminotrans (AST/SGOT 23 U/L (12-37); Bilirubin, Total 0.5 mg/dL (0.1-1.0); Blood Urea Nitrogen 9 mg/dL (8-24); CO2, Blood 28 mmol/L (21-32); Calcium, Blood 8.1 mg/dL (8.5-10.1); Chloride, Blood 107 mmol/L (98-108); Creatinine, Blood 0.65 mg/dL (0.40-1.00); Globulin, Blood 3.4 g/dL (2.2-4.0); Glomerular Filtration Rate >60 (60-); Glucose, Blood 76 mg/dL (70-99); Potassium, Blood 3.5 mmol/L (3.5-5.5); Sodium, Blood 140 mmol/L (136-145); Total Protein, Blood 5.3 g/dL (6.4-8.2)
[2019-04-02 05:40] LABS: BAND PERCENT MAN 3 % (0-8); BASOPHILS PERCENT MAN 0 % (0-2); EOSINOPHILS ABSOLUTE MAN 0.06 K/mm3 (0.00-0.68); EOSINOPHILS PERCENT MAN 1 % (0-6); LYMPHOCYTES PERCENT MAN 12 % (21-46); METAMYELOCYTE ABSOLUTE MAN 0.06 K/mm3 (0.00-0.00); METAMYELOCYTE PERCENT MAN 1 % (0-0); MONOCYTES ABSOLUTE MAN 0.46 K/mm3 (0.16-1.47); MONOCYTES PERCENT MAN 7 % (4-13); MYELOCYTE PERCENT MAN 6 % (0-0); NEUTROPHILS ABSOLUTE MAN 4.41 K/mm3 (1.96-9.15); PROMYELOCYTE ABSOLUTE MAN 0.46 K/mm3 (0.00-0.00); PROMYELOCYTE PERCENT MAN 7 % (0-0); SEG NEUTROPHILS PERCENT MAN 63 % (41-73); TOTAL CELLS COUNTED 100
--- NOTE | 2019-04-02 06:38 | NUR ---
SHIFT SUMMARY: VSS. AFEB. A/OX3. MAKES NEEDS KNOWN. CONT WITH OCCASIONAL DRY SOUNDING COUGH. PT REPORTS SMALL AMT OF WHITE SPUTUM PRODUCED WITH COUGH. INSPIRATORY CRACKLES TO UPPER LOBES LOWER LOBES DIM. 02 SATS 91-92% ON RA. PT STATES SHE SLEPT OK TONIGHT. MOOD IS GOOD. UP WALKING AROUND INDEPENDENTLY IN ROOM. MILD DYSPNEA WITH EXERTION NOTED. BED LOW, CALL BUTTON IN REACH.
[2019-04-02] MEDS ORDERED: Roxicodone15 MG PO (15:33)
[2019-04-02] MEDS ORDERED: LEVO750 PO (15:34)
--- NOTE | 2019-04-02 18:26 | NUR ---
SHIFT SUMMARY/DC PT HAS HAD NO ACUTE CHANGES THIS SHIFT, MEDICATED 1X FOR HEADACHE, REVIEWED DC INSTRUCTIONS W/PT WHO VERBALIZED UNDERSTANDING, PT WAS TRANSPORTED VIA WC TO DC IN PRIVATE VEHICLE @ 1914.
== END 2019-04-02 15:49 | disposition home or self-care (01) | DRG 871 ==
LOC: ER 12:42 → ICUW 15:16 → MEDS 04-01 12:13 → ENPENDDIS 04-02 15:27 → MEDS 04-02 15:49
PROVIDERS: Emergency Medicine; Internal Medicine; Internal Medicine Critical Care Medicine; Physician Assistant; ADMIT Family Medicine
PROC: 3E02340 Introduction of Influenza Vaccine into Muscle, Percutaneous Approach (ICD-10-PCS; 2019-03-28)
PROC: 5A09357 Assistance with Respiratory Ventilation, Less than 24 Consecutive Hours, Continuous Positive Airway Pressure (ICD-10-PCS; principal; 2019-03-30)
DX: A41.02 Sepsis due to Methicillin resistant Staphylococcus aureus (principal); J12.1 Respiratory syncytial virus pneumonia; I21.A1 Myocardial infarction type 2; J96.02 Acute respiratory failure with hypercapnia; R04.2 Hemoptysis; K62.5 Hemorrhage of anus and rectum; E87.2 Acidosis; N39.0 Urinary tract infection, site not specified; F31.9 Bipolar disorder, unspecified; K21.9 Gastro-esophageal reflux disease without esophagitis; Z23 Encounter for immunization; Z96.653 Presence of artificial knee joint, bilateral; Z85.819 Personal history of malignant neoplasm of unspecified site of lip, oral cavity, and pharynx; E87.6 Hypokalemia; J45.909 Unspecified asthma, uncomplicated; F41.9 Anxiety disorder, unspecified; B34.8 Other viral infections of unspecified site; R65.20 Severe sepsis without septic shock
CPT/HCPCS: 0099U; 36415; 36600; 71045; 80048; 80053; 80069; 81001; 82607; 82728; 82746; 82803; 82947; 83540; 83550; 83605; 83735; 84484; 85025; 87040; 87070; 87077; 87086; 87147; 87186; 87205; 87804; 90686; 93005; 93010; 93306; 94640; 94660; 94667; 96361; 96365; 96375; 99285-25; A9270; C9113; G0008; J0360; J0456; J0696; J1650; J2930; J3370; J3480; J7030; J7040; J7050; J7120

== ENCOUNTER → 2021-01-28 | Outpatient (CLI) | payer OTHER ==
[~2021-01-28] MED LIST changes: +CELECOXIB200 MG PO; +LEVO750 PO; +Paxil20 MG PO; +Roxicodone15 MG PO
== END ==
LOC: LAB SHORT 12:21
DX: R39.15 Urgency of urination (principal)
CPT/HCPCS: 87077; 87086; 87186

== ENCOUNTER → 2021-02-22 | Outpatient (CLI) | payer OTHER ==
[2021-02-22 16:39] LABS: Appearance, Urine Hazy (Clear); Bilirubin, Urine Neg (Neg); Blood, Urine 1+ (Neg); Color, Urine Yellow (P-Yellow); Glucose Qualitative, Urine Neg (Neg); Ketones, Urine 1+ (Neg); Leukocyte Esterase, Urine 3+ (Neg); Nitrite, Urine Pos (Neg); Protein, Urine 2+ (Neg); Specific Gravity, Urine 1.025 (1.003-1.022); Urobilinogen, Urine NORM (Normal)
[2021-02-22 16:59] LABS: Bacteria Many /hpf; Red Blood Cells, Urine 0-2 /hpf (0-2); Squamous Epithelial Cells Few /hpf (Few); White Blood Cells, Urine 25-50 /hpf (0-5)
[2021-02-22 17:00] LABS: Calcium Oxalate Crystals Mod /hpf
== END ==
LOC: LAB 15:50 → LAB SHORT 15:50
PROVIDERS: Student in an Organized Health Care Education/Training Program
DX: R39.15 Urgency of urination (principal)
CPT/HCPCS: 81001; 87077; 87086; 87186

== ENCOUNTER → 2021-05-25 | Outpatient (CLI) | payer OTHER | END | disposition home or self-care (01) | LOC: LAB 13:05 → LAB SHORT 13:05 | DX: R39.15 Urgency of urination (principal) | CPT/HCPCS: 87077; 87086; 87186 ==

== ENCOUNTER 2021-06-21 16:07 | Inpatient (IN) | payer OTHER ==
[~2021-06-21] VITALS: Ht 170.2 cm; Wt 89.9 kg
[2021-06-21 16:44] LABS: BASOPHILS ABSOLUTE AUTO 0.05 K/mm3 (0.00-0.23); BASOPHILS PERCENT AUTO 1 % (0-2); EOSINOPHILS ABSOLUTE AUTO 0.08 K/mm3 (0.00-0.68); EOSINOPHILS PERCENT AUTO 1 % (0-6); Hematocrit 41.2 % (33.0-51.0); IMMATURE GRAN ABSOLUTE AUTO 0.02 K/mm3 (0.00-0.10); IMMATURE GRAN PERCENT AUTO 0 % (0-1); LYMPHOCYTES ABSOLUTE AUTO 1.92 K/mm3 (0.84-5.20); LYMPHOCYTES PERCENT AUTO 26 % (21-46); MONOCYTES ABSOLUTE AUTO 0.77 K/mm3 (0.16-1.47); MONOCYTES PERCENT AUTO 10 % (4-13); Mean Corpuscular HGB 33.4 pg (26.0-34.0); Mean Corpuscular HGB Conc 31.6 g/dL (31.5-36.5); Mean Corpuscular Volume 106 fL (80-100); Mean Platelet Volume 9.8 fL (9.1-12.4); NEUTROPHILS ABSOLUTE AUTO 4.58 K/mm3 (1.96-9.15); NEUTROPHILS PERCENT AUTO 62 % (41-73); Platelet Count 263 K/mm3 (150-400); RDW Coefficient Variation 13.6 % (11.7-14.2); RDW Standard Deviation 53.7 fL (35.1-46.3); Red Blood Cell Count 3.89 M/mm3 (3.80-5.20); White Blood Cell Count 7.42 K/mm3 (4.00-11.30)
[2021-06-21] MEDS ORDERED: NEURONTIN300 MG PO (16:47)
[2021-06-21] MEDS ORDERED: TIZA4 PO ×2 (16:48→22:00)
[2021-06-21 17:01] LABS: Albumin, Blood 3.5 g/dL (3.4-5.0); Albumin/Globulin Ratio 0.9 (0.8-1.8); Bilirubin, Total 0.3 mg/dL (0.1-1.0); Globulin, Blood 3.8 g/dL (2.2-4.0); Potassium, Blood 4.2 mmol/L (3.5-5.5); Total Protein, Blood 7.3 g/dL (6.4-8.2)
--- NOTE | 2021-06-22 00:45 | NUR ---
RECEIVED REPORT FROM JONATHAN LEES IN ED. PT TRANFERED TO UNIT AT APPROXIMATELY 2230. PT IS A&OX4 WITH MILD ANXIETY. ABLE TO PROVIDE ACCURATE HEALTH HISTORY. PT ABLE TO STAND AND TRANSFER TO BED WITH STAND BY ASSIST. GAIT UNSTEADY, POSTURE STOOPED. PT USES SCHULTZ FROM HOME WHEN TRANSFERING. TELEMETRY MONITER IN PLACE, HR IN 90-100'S. TOERATING CARDIZEM DRIP WELL. IV IN LEFT AC LEAKING, ATTEMPTED TO PLACED NEW IV WITHOUT SUCCESS. INFORMED [facility] CHARGE NURSE. CLARIFIED AMITRIPTYLINE DOSE WITH PT AND DOCTOR PER DARLIN IN [facility] REQUEST. WAINTING FOR ARRIVAL OF MEDICATION TO UNIT. PT RESTING IN BED WATCHING TV. SAFETY MEASURES IN PLACE.
--- NOTE | 2021-06-22 01:34 | NUR ---
PT COMPLAINING OF CHEST PRESSURE, NO PAIN, NO INCREASE IN SOB. EKG SHOWS A-FIB. WILL CONTINUE TO MONITOR.
--- NOTE | 2021-06-22 05:57 | NUR ---
PT RESTING COMFORTABLY IN BED. NO FURTHER COMPLAINTS OF CHEST PRESSURE. HR STABLE IN 80-90'S, CARDIZEM DRIP DC AT 0349, HR NOW IN 90-100'S. WILL MONITOR. SAFETY MEASURES IN PLACE.
--- NOTE | 2021-06-22 06:40 | NUR ---
CARDIZEM RESTARTED DUE TO HR BEING ELEVATED INTO THE 120'S.
[2021-06-22] MEDS ORDERED: METO50ER PO (16:47)
--- NOTE | 2021-06-22 16:55 | NUR ---
PT DISCHARGED HOME WITH HER AND ALL BELONGINGS. REFERRAL FOR HOME HEALTH FAXED TO [facility] AND NEW PRESCRIPTION CALLED TO [facility] PER PT REQUEST. IV REMOVED. DISCHARGE TEACHING PROVIDED INCLUDING AFIB EDUCATION, NEW MEDICATION, FOLLOW UP APPOINTMENTS AND MEDICATION LIST. PT AND HER STATE THEY HAVE NO QUESTIONS OR CONCERNS AT THIS TIME. NO FURTHER DISCHARGE NEEDS IDENTIFIED.
--- NOTE | 2021-06-23 12:42 | NUR ---
Received referral from PCU Staff on 06/22/2021 via fax. Patient discharged with orders for home health and elected [facility]. Contacted patient at number provided on demographic sheet today- 06/23/2021 to further discuss the above. Patient is agreeable to the above. Discussed homebound status definition with patient. Patient verbalized understanding. Discussed what home health is vs what it is not (in home caregivers/housekeeping). Patient verbalized understanding. Discussed the next steps in the process of an initial assessment to determine frequency of visits. Again patient verbalized understanding. Offered a chance for patient to ask questions regarding the above of which there were none. Gathered all supporting documentation for referral (face sheet, face to face, med list, H&P, and discharge summary) and sent to [facility] for review. No further interventions required. Darshana Rodas Referral Liaison
== END 2021-06-22 17:06 | disposition home health service (06) | DRG 310 ==
LOC: ER 16:07 → PCU 16:08 → ER 20:52 → PCU 20:52
PROVIDERS: Physician Assistant; ADMIT Internal Medicine
DX: I48.91 Unspecified atrial fibrillation (principal); M54.9 Dorsalgia, unspecified; G89.29 Other chronic pain; K21.9 Gastro-esophageal reflux disease without esophagitis; F31.9 Bipolar disorder, unspecified; R29.6 Repeated falls; F41.9 Anxiety disorder, unspecified; Z28.82 Immunization not carried out because of caregiver refusal; Z90.710 Acquired absence of both cervix and uterus; Z98.890 Other specified postprocedural states; Z90.49 Acquired absence of other specified parts of digestive tract; Z79.899 Other long term (current) drug therapy
CPT/HCPCS: 36415; 71045; 71260; 80053; 83880; 84443; 84484; 85025; 85379; 93005; 93010; 93306; 96365; 96376; 99285-25; A9270; J1650; Q9967

== ENCOUNTER 2021-07-26 12:12 | Day surgery (SDC) | payer OTHER ==
[~2021-07-26 12:12] MED LIST changes: +METO50ER PO; +NEURONTIN300 MG PO; +TIZA4 PO
--- NOTE | 2021-07-26 13:05 | NUR ---
07/26/21 1305 Regina Robertson HR OF 139 WAS REPORTED TO ANESTHESIOLOGIST AND DR BRANCH. IT WAS DECIDED THAT THE PT BE ADMITTED THROUGH THE ED AND PROCEED WITH SURGURY AN INPATIENT ONCE HR IS UNDER CONTROL.
[2021-07-26] MEDS ORDERED: Norco 5-325 Ta1 EACH PO (16:39)
== END 2021-07-26 13:33 | disposition other institution (70) ==
LOC: ORSCSDS 12:12
DX: S82.62XA Displaced fracture of lateral malleolus of left fibula, initial encounter for closed fracture (principal); S82.892A Other fracture of left lower leg, initial encounter for closed fracture; S93.422A Sprain of deltoid ligament of left ankle, initial encounter; Z53.9 Procedure and treatment not carried out, unspecified reason
CPT/HCPCS: J0171; J0690; J2250; J2704; J3010

== ENCOUNTER 2021-07-26 13:37 | Inpatient (IN) | payer OTHER ==
[~2021-07-26] VITALS: Ht 167.6 cm; Wt 91.0 kg
[2021-07-26 14:41] LABS: BASOPHILS ABSOLUTE AUTO 0.07 K/mm3 (0.00-0.23); BASOPHILS PERCENT AUTO 1 % (0-2); EOSINOPHILS ABSOLUTE AUTO 0.14 K/mm3 (0.00-0.68); EOSINOPHILS PERCENT AUTO 2 % (0-6); Hematocrit 40.7 % (33.0-51.0); Hemoglobin 12.7 g/dL (11.5-16.0); IMMATURE GRAN ABSOLUTE AUTO 0.04 K/mm3 (0.00-0.10); IMMATURE GRAN PERCENT AUTO 1 % (0-1); LYMPHOCYTES ABSOLUTE AUTO 1.84 K/mm3 (0.84-5.20); LYMPHOCYTES PERCENT AUTO 25 % (21-46); MONOCYTES ABSOLUTE AUTO 0.78 K/mm3 (0.16-1.47); MONOCYTES PERCENT AUTO 11 % (4-13); Mean Corpuscular HGB 32.3 pg (26.0-34.0); Mean Corpuscular HGB Conc 31.2 g/dL (31.5-36.5); Mean Corpuscular Volume 104 fL (80-100); NEUTROPHILS ABSOLUTE AUTO 4.55 K/mm3 (1.96-9.15); NEUTROPHILS PERCENT AUTO 61 % (41-73); Platelet Count 297 K/mm3 (150-400); RDW Coefficient Variation 13.2 % (11.7-14.2); RDW Standard Deviation 50.6 fL (35.1-46.3); Red Blood Cell Count 3.93 M/mm3 (3.80-5.20); White Blood Cell Count 7.42 K/mm3 (4.00-11.30)
[2021-07-26 14:43] LABS: Alanine Aminotransfer (ALT/SGP 21 U/L (12-78); Albumin, Blood 2.9 g/dL (3.4-5.0); Albumin/Globulin Ratio 0.7 (0.8-1.8); Alk Phos 86 U/L (50-136); Anion Gap 3 mmol/L (6-16); Aspartate Aminotrans (AST/SGOT 19 U/L (12-37); Bilirubin, Total 0.5 mg/dL (0.1-1.0); Blood Urea Nitrogen 14 mg/dL (8-24); Bun/Creatinine Ratio 19.2 (12.0-20.0); CO2, Blood 30 mmol/L (21-32); Calcium, Blood 9.2 mg/dL (8.5-10.1); Chloride, Blood 107 mmol/L (98-108); Creatinine, Blood 0.73 mg/dL (0.40-1.00); Globulin, Blood 4.2 g/dL (2.2-4.0); Glomerular Filtration Rate >60 (60-); Glucose, Blood 94 mg/dL (70-99); Potassium, Blood 4.6 mmol/L (3.5-5.5); Sodium, Blood 140 mmol/L (136-145); Total Protein, Blood 7.1 g/dL (6.4-8.2)
[2021-07-26] MEDS ORDERED: Norco 5-325 Ta1 EACH PO (16:39)
[2021-07-26 18:02] LABS: Free Thyroxine 0.94 ng/dL (0.70-1.60); Thyroid Stimulating Hormone 5.24 uIU/mL (0.360-4.800)
[2021-07-26 19:15] LABS: International Normalized Ratio 1.04; Prothrombin Time Results 10.9 Sec (9.7-11.5)
[2021-07-26 19:45] LABS: Source, Urine Clean Catch
[2021-07-26 19:57] LABS: Appearance, Urine Clear (Clear); Bilirubin, Urine Neg (Neg); Blood, Urine Neg (Neg); Glucose Qualitative, Urine Neg (Neg); Ketones, Urine Neg (Neg); Leukocyte Esterase, Urine Neg (Neg); Nitrite, Urine Neg (Neg); Protein, Urine Neg (Neg); Specific Gravity, Urine 1.015 (1.003-1.022); Urobilinogen, Urine NORM (Normal)
[2021-07-26 20:29] LABS: Color, Urine Pale Yellow (P-Yellow)
--- NOTE | 2021-07-27 04:47 | NUR ---
184: PT ARRIVED IN ROOM, TRANSFERED FROM [facility] TO BED. AOX3. REPORTS PAIN ON LLE AND ANXIOUS. LLE HAS CAST WITH ASA WRAP DUE TO L ANKLE FX DUE TO RECENT FALL. PT REPORTS CHRONIC N/T. VSS. DENIES CHEST PAIN BUT FEELS OUT OF BREATH RELATED TO ANXIETY. TELE IN PLACED, AFIB AT 100 TO 1OO(TEENS). LLE ALSO HAS SOME BRUISING. R ARM SKIN TEAR NOTED. USED BEDPAN OVERNIGHT. VOIDING WITHOUT DIFFICULTY. NPO AFTER MIDNIGHT. LOVENOX AND OTHER HOME MEDS RESUMED. METOPROLOL DOSAGE CHANGED. IV FLUIDS FOR GENTLE HYDRATION. CALL LIGHT WITHIN REACH. WILL CONTINUE TO MONITOR PT.
--- NOTE | 2021-07-27 04:53 | NUR ---
SHIFT SUMMARY PT HAS NOT BEEN SLEEPING WELL, INTERMITTENLY WAKING UP, FEELING ANXIOUS BUT PLEASANT, CALM AND COOPERATIVE. SHE STARTED CRYING AND VENTING SOME FRUSTRATIONS ABOUT BEING AWAY FROM HER FAMILY AND ADMISSION. I CONSOL PT, ABLE TO CALM. BUT NO OTHER CHANGES SINCE PT CAME IN. AOX4. NPO AFTER MIDNGIHT. USE CALL LIGHT APPROPRIATELY AND ITS WITHIN REACH. WILL CONTINUE TO MONITOR PT AND WILL PROVIDE REPORT TO ONCOMING NURSE.
[2021-07-27 05:30] LABS: BASOPHILS ABSOLUTE AUTO 0.05 K/mm3 (0.00-0.23); BASOPHILS PERCENT AUTO 1 % (0-2); EOSINOPHILS ABSOLUTE AUTO 0.11 K/mm3 (0.00-0.68); EOSINOPHILS PERCENT AUTO 2 % (0-6); Hematocrit 37.4 % (33.0-51.0); Hemoglobin 11.6 g/dL (11.5-16.0); IMMATURE GRAN ABSOLUTE AUTO 0.04 K/mm3 (0.00-0.10); IMMATURE GRAN PERCENT AUTO 1 % (0-1); LYMPHOCYTES ABSOLUTE AUTO 1.82 K/mm3 (0.84-5.20); LYMPHOCYTES PERCENT AUTO 31 % (21-46); MONOCYTES ABSOLUTE AUTO 0.82 K/mm3 (0.16-1.47); MONOCYTES PERCENT AUTO 14 % (4-13); Mean Corpuscular HGB 31.9 pg (26.0-34.0); Mean Corpuscular Volume 103 fL (80-100); Mean Platelet Volume 10.1 fL (9.1-12.4); NEUTROPHILS ABSOLUTE AUTO 3.06 K/mm3 (1.96-9.15); NEUTROPHILS PERCENT AUTO 52 % (41-73); Platelet Count 264 K/mm3 (150-400); RDW Coefficient Variation 13.3 % (11.7-14.2); RDW Standard Deviation 50.4 fL (35.1-46.3); Red Blood Cell Count 3.64 M/mm3 (3.80-5.20)
[2021-07-27 05:59] LABS: Alanine Aminotransfer (ALT/SGP 25 U/L (12-78); Albumin, Blood 2.6 g/dL (3.4-5.0); Albumin/Globulin Ratio 0.7 (0.8-1.8); Alk Phos 95 U/L (50-136); Anion Gap 5 mmol/L (6-16); Aspartate Aminotrans (AST/SGOT 24 U/L (12-37); Bilirubin, Total 0.5 mg/dL (0.1-1.0); Blood Urea Nitrogen 13 mg/dL (8-24); Bun/Creatinine Ratio 16.6 (12.0-20.0); CO2, Blood 28 mmol/L (21-32); Calcium, Blood 8.6 mg/dL (8.5-10.1); Chloride, Blood 107 mmol/L (98-108); Creatinine, Blood 0.78 mg/dL (0.40-1.00); Globulin, Blood 3.8 g/dL (2.2-4.0); Glomerular Filtration Rate >60 (60-); Glucose, Blood 90 mg/dL (70-99); Potassium, Blood 4.4 mmol/L (3.5-5.5); Sodium, Blood 140 mmol/L (136-145); Total Protein, Blood 6.4 g/dL (6.4-8.2)
--- NOTE | 2021-07-27 10:31 | NUR ---
Pt. is awake in bed andf welcomes my visit. Pt. is very unsettled about the delay in getting treatment. Provide a calming presence. Pt. verbalizes that she doesn't understand the delay in her cardiac care. Listen empathetically and begin to develop rapport. Pt. displays evidence of exhaustion, and a heightened sense of frustration. Provide pastoral guidance counselor. Pt. displays evidence of reduced stress. Prayed with Pt. Pt. verbalized gratitude for the spiritual care visit. attending nurse also verbalized gratitude for the spiritual care visit.
--- NOTE | 2021-07-27 18:21 | NUR ---
TRANSFER Pt was transferred from surgical floor for a fib in the 120's but since her arrival she has been in the 90's. She is scheduled for a left ankle surgery with Dr Velarde in the morning so she should be NPO at midnight. She has a splint on to her LLE and is NWB to that leg. According to her and the she was here recently for A-Fib and was sent home with what they felt was poor follow up but some education was done with them and they are happy with her current care and stay. She is a mod assist x 2 to the [facility] for toileting. She is oriented x 4 and able to make her needs known. She has her call light in reach.
--- NOTE | 2021-07-27 19:07 | NUR ---
TRANSFER NOTE PATIENT ALERT AND ORIENTED THROUGHOUT SHIFT. TOLERATING REGULAR DIET AND LIQUIDS. TELE AFIB 120 DESPITE INCREASED DOSE OF METOPROLOL. DR COLIN ORDERED IV PUSH 20 MG DILTIAZEM, TRANSFER TO PCU, AND DILTIAZEM DRIP. LEFT ANKLE IN SPLINT AND ASA WRAP. PLANNED SURGICAL REPAIR TOMORROW 07/28/[address] BRANCH. NPO AFTER MIDNIGHT. 2 PERSON MAX ASSIST TO PIVOT WITH GAIT BELT AND WALKER. TRANSFERRED PATIENT IN BED TO PCU 17, BEDSIDE REPORT GIVEN TO RECREATION AIDE.
[2021-07-28 05:11] LABS: Source, Urine Voided
[2021-07-28 05:16] LABS: Bilirubin, Urine Neg (Neg); Blood, Urine Neg (Neg); Glucose Qualitative, Urine Neg (Neg); Ketones, Urine Neg (Neg); Leukocyte Esterase, Urine Neg (Neg); Nitrite, Urine Neg (Neg); Protein, Urine Neg (Neg); Specific Gravity, Urine 1.015 (1.003-1.022); Urobilinogen, Urine NORM (Normal); pH, Urine 6.5 (5.0-8.0)
[2021-07-28 05:25] LABS: Appearance, Urine Hazy (Clear); Color, Urine Pale Yellow (P-Yellow)
[2021-07-28 05:26] LABS: Bacteria Not Seen /hpf; Other Crystals Many /hpf; Red Blood Cells, Urine Not Seen /hpf (0-2); Squamous Epithelial Cells Not Seen /hpf (Few); White Blood Cells, Urine Not Seen /hpf (0-5)
--- NOTE | 2021-07-28 05:59 | NUR ---
PT IS A&O X4. PT HAS LEFT ANKLE FX, SPLINT IS IN PLACE. PILLOW IS PLACED UNDER LEGS. PT REPORTS PAIN OF 6/10 IN LEFT ANKLE. PT MEDICATED WITH 50 MCG OF FENTANYL FOR PAIN. UPON REASSESSMENT PT REPORTS IMPROVEMENT OF PAIN. VS; SYSTOLIC BLOOD PRESSURES HIGH, AFIB WITH RATE OF 100 - 130'S. SPO2 >95% ON RA. DILTIAZEM STARTED AT 5 ML, TITRATED UP TO 10 ML. PT COMPLAINS OF BEING "HOT AND THEN COLD" AND FEELING THAT SHE NEEDS TO URINATE MORE FREQUENTLY. PT REQUESTS AN UA TO SEE IF SHE HAS A UTI; PT REPORTS SHE FREQUENTLY GETS UTI'S. UA COLLECTED, RESULTS ARE NEGATIVE. PT REPORTS PAIN IS INCREASING AT RATES IT AT 8/10. PT MEDICATED PER EMAR. UPON REASSESSMENT PT IS RESTING AND COMFORTABLE, PT STATES HER PAIN IS TOLERABLE AND "IS BETTER". PT CONTINUES TO REST. WILL CONTINUE TO MONITOR. BED IN LOWEST POSITION AND CALL LIGHT WITHIN REACH.
--- NOTE | 2021-07-28 17:56 | NUR ---
PT SUMMARY: PT ALERT AND ORIENTED X4, ABLE TO MAKE NEEDS KNOWN. PT PLAN TO GET SURGERY DONE TODAY BY DR BRANCH, SURGERY WAS POSTPONED DUE TO PT HAVING CHEST PAIN EPISODES THIS AM. PT STARTED HAVING CHEST PAIN AT AROUND 9AM PT REPORTED CHEST PRESSURE 10/10 AND SHORTNESS OF BREATH, HRR AFIB RVR AT 120'S PT ON CARDIZEM GTT AT 10MG/HR SINCE THE BEGINNING OF THE SHIFT, BP SYSTOLIC 110-120'S, SATS ABOVE 95% ON RA, AFEBRILE. PT REQUESTED O2 FOR COMFORT 2L. PT WAS GIVEN NORCO X1 FOR LEG PAIN FOLLOWED BY 50MCG OF FENTANYL X1 WHEN THE CHEST PAIN STARTED AND WAS NOT EFFECTIVE THEN NITRO X3 DOSES CHEST PAIN STILL ABOUT THE SAME THEN MORPHINE 2MG X2 DOSES AND FINALLY SUBSIDED. CARDIZEM GTT TURNED UP TO 15MG/HR WAS TITRATED DOWN TO 5MG/HR HRR SUSTAINED IN THE 80-90'S, PO CARDIZEM WAS STARTED, TO KEEP PT ON CARDIZEM GTT FOR NOW TO TITRATE TO KEEP HRR <110 AND BP SYSTOLIC >[address] CALVILLO. TO PLAN SURGERY TOMORROW IF HRR STAYS BELOW 110'S, KEEP NPO AFTER MIDNIGHT. LEFT LEG SPLINT INTACT FOR THE SHIFT, PT DENIES NUMBNESS AND TINGLING SENSATION, PT USES BEDPAN FOR TOILETING PT ABLE TO HELP ROLL AND TURN. FAMILY HAS BEEN AT THE BEDSIDE SINCE THIS MORNING. NO OTHER ISSUES REPORTED FAMILY AND PT ABOUT PLAN OF CARE, WILL REPORT TO ONCOMING SHIFT
--- NOTE | 2021-07-29 04:49 | NUR ---
SHIFT SUMMARY PT ORIENTED BUT LETHARGIC AND FATIGUE THROUGHOUT SHIFT. PT RESPONDS AND OPENS EYES WHEN STUDENT NURSE IS IN ROOM AND ENGAGING IN CONVERSATION. PT RESPONSES ARE APPROPRIATE. VSS; PT IN AFIB WITH HEART RATE IN 90'S, SBP 100'S - 120'S. O2 SATS >95% ON 1 L O2 VIA NC. CARDIZEM GTT AT 5MLS. PT DENIES SOB, CHEST PAIN OR PRESSURE. PT DOES NOT COMPLAIN OF PAIN. SPLINT INTACT AND PILLOW PLACED UNDERNEATH ANKLE. PT USES BEDPAN, TOLERATES WELL. WILL CONTINUE TO MONITOR PT. CALL LIGHT IS WITHIN REACH AND PT USES APPROPRIATELY. BED IS IN LOWEST POSITION. FREQUENT CHECKS TO ENSURE SAFETY AND COMFORT.
--- NOTE | 2021-07-29 14:45 | NUR ---
PT TO OR PT LEFT TO OR AT THIS TIME. PT A&Ox4, VSS. PT SALINE LOCKED PER OR REQUEST. MONITOR SHOWING AFIB 80'S-105.
--- NOTE | 2021-07-29 17:12 | NUR ---
07/29/21 171 Apryl Castillo ANESTHESIOLOGIST ADMINISTERED BLOCK INTRAOPERATIVELY.
--- NOTE | 2021-07-29 18:24 | NUR ---
RETURN FROM OR/SHIFT SUMMARY PT BACK TO ROOM FROM OR AT 1800. PT A&Ox4, BUT DROWSY, PT STATED "I'M STILL DRUNK". VSS, SPO2>92% 2L NC. MONITOR SHOWING AFIB 80'S. CARDIZEM GTT REMAINS IN STANDBY. PT REPORTS ABLE TO FEEL WHEN STAFF TOUCHES BLE AND IS ABLE TO SUCCESSFULLY REPORT LOCATION OF STIMULUS. FAMILY AT BEDSIDE. WILL CONTINUE TO MONITOR UNTIL REPORT TO NOC.
--- NOTE | 2021-07-29 18:48 | NUR ---
THIS RN AGREES W/ STUDENT NURSE DOCUMENTATION THIS SHIFT.
[2021-07-30 04:18] LABS: BASOPHILS PERCENT AUTO 0 % (0-2); EOSINOPHILS PERCENT AUTO 0 % (0-6); Hematocrit 36.6 % (33.0-51.0); Hemoglobin 11.7 g/dL (11.5-16.0); IMMATURE GRAN ABSOLUTE AUTO 0.04 K/mm3 (0.00-0.10); IMMATURE GRAN PERCENT AUTO 1 % (0-1); LYMPHOCYTES PERCENT AUTO 11 % (21-46); MONOCYTES ABSOLUTE AUTO 0.18 K/mm3 (0.16-1.47); MONOCYTES PERCENT AUTO 3 % (4-13); Mean Corpuscular HGB 31.8 pg (26.0-34.0); Mean Corpuscular Volume 100 fL (80-100); Mean Platelet Volume 9.7 fL (9.1-12.4); NEUTROPHILS ABSOLUTE AUTO 5.36 K/mm3 (1.96-9.15); NEUTROPHILS PERCENT AUTO 85 % (41-73); Platelet Count 258 K/mm3 (150-400); RDW Standard Deviation 47.4 fL (35.1-46.3); Red Blood Cell Count 3.68 M/mm3 (3.80-5.20); White Blood Cell Count 6.28 K/mm3 (4.00-11.30)
[2021-07-30 04:34] LABS: Anion Gap 6 mmol/L (6-16); Blood Urea Nitrogen 16 mg/dL (8-24); Bun/Creatinine Ratio 24.2 (12.0-20.0); CO2, Blood 27 mmol/L (21-32); Calcium, Blood 8.8 mg/dL (8.5-10.1); Chloride, Blood 104 mmol/L (98-108); Creatinine, Blood 0.66 mg/dL (0.40-1.00); Glomerular Filtration Rate >60 (60-); Glucose, Blood 192 mg/dL (70-99); Potassium, Blood 4.1 mmol/L (3.5-5.5); Sodium, Blood 137 mmol/L (136-145)
--- NOTE | 2021-07-30 07:37 | NUR ---
ASSUMED CARE: CITY MANAGER AT BEDSIDE DURING REPORT, PT ALERT AND RESTING IN BED AT THIS TIME. AFIB RHYTHM IN A RATE OF LOW 100'S. NO ACUTE NEEDS/DISTRESS AT THIS TIME.
--- NOTE | 2021-07-30 10:19 | NUR ---
REVIEWED STUDENT NURSE'S HEAD TO TOE ASSESSMENT AND AGREE
--- NOTE | 2021-07-30 13:51 | NUR ---
CALL TO DR COLIN REGARDING PT'S HR. PT REMAINS IN 130S AFTER WORKING WITH PT/OT EARLIER THIS AFTERNOON. ANXIETY MEDS GIVEN TO ATTEMPT TO HELP WITH THIS BUT TO NO AVAIL. DR COLIN INSTRUCTED FOR PRN CARDIZEM AND TO DC GTT. OIL BOILER AWARE OF SITUATION
[2021-07-30 14:35] LABS: Influenza A, PCR NEGATIVE (NEGATIVE); Influenza B, PCR NEGATIVE (NEGATIVE); Resp Syncytial Virus, PCR NEGATIVE (NEGATIVE); SARS-Cov-2 (COVID-19) PCR, MMC NEGATIVE (NEGATIVE)
--- NOTE | 2021-07-30 17:30 | NUR ---
TRANSFER NOTE: THIS STUDENT NURSE GAVE REPORT TO NABEEL CASTILLO AND TRANSFERRED PT FROM PCU 17 TO SURGICAL FLOOR 211 VIA BED.
--- NOTE | 2021-07-30 17:38 | NUR ---
SHIFT SUMMARY: PT IS A&OX4, CALLS APPROPRIATELY FOR NEEDS. PT HAS SUSTAINED AFIB RHYTHM OF 110'S - 130'S THROGUHOUT SHIFT. 98% O2 ON 2LPM VIA NC. PT HAS BEEN PLEASANT AND COOPERATIVE WITH CARE AND WAS ABLE TO TOLERATE WORKING W/ PT/OT TO AN EXTENT. PT'S HR BECAME INCREASINGLY ELEVATED AFTER EXERTION AND REQUIRED PRN CARDIZEM SUPPLEMENTATION. HR HAS IMPROVED W/ MEDICATION PER JUN, AND PTHAS NOT COMPLAINED OF CHEST PAIN/DISCOMFORT AND DIZZINESS. PT IS SET TO RECOVER FROM SURGERY W/ [facility] TOMORROW AND IS AWAITING SURGIAL FLOOR PLACEMENT. NO ACUTE NEEDS/DISTRESS AT THIS TIME.
--- NOTE | 2021-07-30 17:56 | NUR ---
ARRIVED TO UNIT FROM PCU IN BED. LUNGS CLEAR T/O. TELE IN PLACE. SPLINT W/ ASA WRAP TO L ANKLE, ABLE TO WIGGLE TOES, CAP REFILL <3 SECONDS. DENIES PAIN AT THIS TIME. ORIENTED TO ROOM. WILL REPORT TO ONCOMING RN.
--- NOTE | 2021-07-31 03:54 | NUR ---
PT IS A&OX4, USES BED PAIN TO VIOD AND CALLS APPROPRIATELY. POST OP DAY 2 FOR ORIF OF THE L ANKLE. PAIN CONTROLLED WITH PRN NORCO. TELE IN PLACE, PT IS NSR. POSSIBLE D/C IN THE AM TO [facility]. ANKLE HAS ASA WRAP IN PLACE, CSM INTACT. WILL CONTINUE TO MONITOR THIS PATIENT AND GIVE REPORT TO ONCOMING RN.
--- NOTE | 2021-07-31 11:13 | NUR ---
DISCHARGE SUMMARY: PATIENT WAS ABLE TO TRANSFER WITH NO WEIGHT ON HER LEFT ANKLE. WITH 2 PERSON (RN,ULTRASONIC WELDING MACHINE OPERATOR) TO WHEELCHAIR FOR [facility]. PATIENT IN NO SIGNS OF ACUTE STRESS IV WAS DISCHARGED, DENIES CHEST PAIN SOB. ALL PERSONAL BELONINGS, PACKET FOR FAUCILITY WITH HARDCOPY OF MEDICATION INCLUDED. PATIENT ON RA, PATIENT UNDERSTOOD DISCHARGE FULLY WITH NO FURTHER QUESTIONS OR CONCERNS.
== END 2021-07-31 11:13 | DRG 983 ==
LOC: ER 13:37 → SURS 18:23 → MEDS 18:23 → PCU 18:23 → SURS 20:40 → PCU 07-27 17:52 → SURS 07-30 17:51
PROVIDERS: Internal Medicine; Internal Medicine Cardiovascular Disease; Physician Assistant; Podiatrist Foot & Ankle Surgery; ADMIT Internal Medicine
PROC: 0QSK04Z Reposition Left Fibula with Internal Fixation Device, Open Approach (ICD-10-PCS; principal; 2021-07-29 15:30)
DX: I48.91 Unspecified atrial fibrillation (principal); I34.0 Nonrheumatic mitral (valve) insufficiency; F31.9 Bipolar disorder, unspecified; F41.9 Anxiety disorder, unspecified; G89.29 Other chronic pain; E03.8 Other specified hypothyroidism; M54.9 Dorsalgia, unspecified; K21.9 Gastro-esophageal reflux disease without esophagitis; Z79.899 Other long term (current) drug therapy; Z90.49 Acquired absence of other specified parts of digestive tract; Z20.822 Contact with and (suspected) exposure to COVID-19; Z90.710 Acquired absence of both cervix and uterus; Z98.890 Other specified postprocedural states; I27.20 Pulmonary hypertension, unspecified; I50.810 Right heart failure, unspecified; Z85.819 Personal history of malignant neoplasm of unspecified site of lip, oral cavity, and pharynx; K22.2 Esophageal obstruction; G47.30 Sleep apnea, unspecified; E66.9 Obesity, unspecified; S82.62XA Displaced fracture of lateral malleolus of left fibula, initial encounter for closed fracture; X58.XXXA Exposure to other specified factors, initial encounter; E87.70 Fluid overload, unspecified
CPT/HCPCS: 0241U; 36415; 71046; 80048; 80053; 81001; 81003; 83690; 83880; 84439; 84443; 84484; 85025; 85610; 93005; 93010; 96374; 96375; 97162; 97166; 97530; 99285-25; A9270; C1713; J0171; J0690; J1100; J1650; J2250; J2270; J2405; J2704; J3010; J7030; J7120

== ENCOUNTER 2021-08-03 09:10 | Inpatient (IN) | payer OTHER ==
[~2021-08-03] VITALS: Ht 167.6 cm; Wt 90.7 kg
[~2021-08-03 09:10] MED LIST changes: +Norco 5-325 Ta1 EACH PO
[2021-08-03 09:42] LABS: BASOPHILS ABSOLUTE AUTO 0.04 K/mm3 (0.00-0.23); BASOPHILS PERCENT AUTO 0 % (0-2); EOSINOPHILS ABSOLUTE AUTO 0.15 K/mm3 (0.00-0.68); EOSINOPHILS PERCENT AUTO 1 % (0-6); Hematocrit 46.1 % (33.0-51.0); Hemoglobin 15.4 g/dL (11.5-16.0); IMMATURE GRAN ABSOLUTE AUTO 0.14 K/mm3 (0.00-0.10); IMMATURE GRAN PERCENT AUTO 1 % (0-1); LYMPHOCYTES ABSOLUTE AUTO 2.96 K/mm3 (0.84-5.20); LYMPHOCYTES PERCENT AUTO 29 % (21-46); MONOCYTES ABSOLUTE AUTO 1.18 K/mm3 (0.16-1.47); MONOCYTES PERCENT AUTO 11 % (4-13); Mean Corpuscular HGB Conc 33.4 g/dL (31.5-36.5); Mean Corpuscular Volume 99 fL (80-100); Mean Platelet Volume 9.7 fL (9.1-12.4); NEUTROPHILS ABSOLUTE AUTO 5.91 K/mm3 (1.96-9.15); NEUTROPHILS PERCENT AUTO 57 % (41-73); Platelet Count 356 K/mm3 (150-400); RDW Coefficient Variation 13.2 % (11.7-14.2); RDW Standard Deviation 47.6 fL (35.1-46.3); Red Blood Cell Count 4.66 M/mm3 (3.80-5.20); White Blood Cell Count 10.38 K/mm3 (4.00-11.30)
[2021-08-03 09:59] LABS: Alanine Aminotransfer (ALT/SGP 23 U/L (12-78); Albumin, Blood 2.9 g/dL (3.4-5.0); Albumin/Globulin Ratio 0.7 (0.8-1.8); Alk Phos 127 U/L (50-136); Anion Gap 7 mmol/L (6-16); Aspartate Aminotrans (AST/SGOT 15 U/L (12-37); Bilirubin, Total 0.6 mg/dL (0.1-1.0); Blood Urea Nitrogen 13 mg/dL (8-24); Bun/Creatinine Ratio 17.9 (12.0-20.0); CO2, Blood 26 mmol/L (21-32); Calcium, Blood 9.2 mg/dL (8.5-10.1); Chloride, Blood 105 mmol/L (98-108); Creatinine, Blood 0.73 mg/dL (0.40-1.00); Globulin, Blood 4.4 g/dL (2.2-4.0); Glomerular Filtration Rate >60 (60-); Glucose, Blood 97 mg/dL (70-99); Potassium, Blood 4.1 mmol/L (3.5-5.5); Sodium, Blood 138 mmol/L (136-145); Total Protein, Blood 7.3 g/dL (6.4-8.2)
--- NOTE | 2021-08-03 16:02 | NUR ---
ARRIVAL: PT ARRIVED AT 1540 FROM ER BY BED WITH SLIDER SHEET. SHE IS A&O X4. SHE HAS A 18G IV LOCATED IN LAC. PLEASANT AND COOPERATIVE WITH CARE. FAMILY AT BEDSIDE. SHE HAS A PurchextWICK IN. ED STATED THEY GOT OUT 1200 FROM [facility]. SHE HAS A HARD CAST LOCATED ON HER LEFT ANKLE DUE TO AN ANKLE FRACTURE.
--- NOTE | 2021-08-03 22:59 | NUR ---
PT C/O CHEST TIGHTNESS, SOB AND INDICATES NEW ONSET L.SIDED NECK PAIN. PT CONTINUED TO BE A.FLUTTER ON TELEMETRY W/HR 100'S BUT HAD RECENTLY BEGUN TRENDING UPWARD TO 115 BPM AT TIME OF COMPLAINTS. SHE ALSO ADMITTED TO L.LEG PAIN BECOMING WORSE. METOPROLOL PRN 5MG IV WAS PROVIDED, TYLENOL RECIEVED AND PT PLACED ON 2L O2 FOR COMFORT. MADE AWARE W/NEW ORDERS GIVEN FOR STAT TROPONIN, EKG NOW AND PT STARTED ON METOPROLOL 12.5MG PO BID W/FIRST DOSE NOW. ROLL TENDER AWARE. MAKSIM HERNANDEZ, F/U W/VITALS, ADMIN PO METROPROLOL AND ASSESS FOR EFFECT.
--- NOTE | 2021-08-03 23:22 | NUR ---
CURRENT VITALS, RHYTHM/RATE AND STAT EKG RESULTS RELAYED TO : BP 100/71, AFIB ON TELEMETRY W/HR NOW SUSTAINING <100 BPM (89-95 BPM), SPO2 WNL ON 2L O2 VIA NC AND SOB APPEARS TO BE SLIGHTLY IMPROVING. EKG INDICATED NEW L.POSTERIOR FASCICULAR BLOCK IN COMPARISON TO PREVIOUS ON 08/03/21 AT 0919. AWARE AND PROVIDED NO NEW ORDERS AT THIS TIME W/OK GIVEN TO ADMIN ORAL METOPROLOL RX'D.
--- NOTE | 2021-08-04 00:04 | NUR ---
TROPONIN 7 AND PT REPORTS CHEST TIGHTNESS, L.SIDED NECK PAIN AND SOB RESOLVED. HR SUSTAINING <100 BPM IN AFLUTTER AT PRESENT. WCTM CLOSELY FOR CHANGES.
--- NOTE | 2021-08-04 05:14 | NUR ---
PT HYPOTENSIVE THIS AM, BP NOW 80/65 AND SHE REMAINS A.FIB AT 90'S BPM ON TELEMTRY. CARDIAC SYMPTOMS HAVE RESOLVED FROM PREVIOUS AND SHE CURRENTLY DENIES FEELING DDIZZY, LIGHT HEADED OR ANY S/S DISTRESS. MADE AWARE W/NEW ORDER RECIEVED FOR 250 ML NS BOLUS NOW AND REPEAT X1 IN 1 HOUR IF HYPOTENSION PERSISTS. WILL ADMINITISTER MED FLUIDS AND REEVALUATE FOR EFFECT.
--- NOTE | 2021-08-04 06:00 | NUR ---
PT STILL HYPOTENSIVE AFTER 1ST BOLUS. BP NOW 88/63 IN AFIB W/HR 86 BPM. 2ND 250ML NS BOLUS RX'D AND BEING RECIEVED. WILL ASSESS FOR EFFECT.
[2021-08-04 06:07] LABS: Hematocrit 46.1 % (33.0-51.0); Hemoglobin 14.6 g/dL (11.5-16.0); Mean Corpuscular HGB 31.7 pg (26.0-34.0); Mean Corpuscular HGB Conc 31.7 g/dL (31.5-36.5); Mean Corpuscular Volume 100 fL (80-100); Mean Platelet Volume 9.8 fL (9.1-12.4); Platelet Count 382 K/mm3 (150-400); RDW Coefficient Variation 13.2 % (11.7-14.2); RDW Standard Deviation 49.1 fL (35.1-46.3); Red Blood Cell Count 4.61 M/mm3 (3.80-5.20); White Blood Cell Count 8.59 K/mm3 (4.00-11.30)
--- NOTE | 2021-08-04 06:24 | NUR ---
SUMMARY: PT A/OX4, CALLS APPROPRIATELY TO SPECIFY NEEDS AND IS PLEASANT AND COOPERATIVE W/CARE. SHE HAD X1 EPISODE CHEST TIGHTNESS W/SOB AND NEW ONSET L.SIDED NECK PAIN IN PRESENCE OF TRENDING UPWARD HR SUSTAINING >100BPM IN AFLUTTER. IV METOPROLOL WAS PROVIDED AND PT PLACED ON 1L O2 FOR COMFORT. NEW ORDERS RECIEVED FOR EKG, STAT TROPONIN AND PO METOPROLOL BID. EKG SHOWED CHANGES BUT TROPONIN WAS WNL AND MD MADE AWARE FOR NO ADDITIONAL ORDERS. HR IMPROVED TO 80'S-90'S IN AFIB/AFLUTTER BUT BP TRENDED DOWNWARD TO BP 80/65. X2 25OML NS BOLUSES RX'D AND RECIEVED THIS AM FOR IMPROVEMENT, BP NOW 117/89. PT ASYMPTOMATIC OF CARDIAC DISTRESS SINCE INIITIAL EVENT AND TX. SHE'S BEEN NPO FOR STRESS TEST THIS AM. PURWIC CATH IN PLACE AND CHANGED THIS SHIFT. CAST TO LLE REMAINS INTACT FOR RECENT L.ANKLE/FOOT FX W/ORIF REPAIR. TYLENOL RECIEVED PRN FOR GOOD RELIEF OF PAIN. NO ACUTE CHANGES, VSS/AFEBRILE. WCTM AND REPORT TO DAY RN.
--- NOTE | 2021-08-04 06:26 | NUR ---
BP IMPROVED AFTER 2ND NS BOLUS, NOW 117/79 IN AFIB AT 80'S-90'S BPM.
[2021-08-04 06:34] LABS: Anion Gap 7 mmol/L (6-16); Blood Urea Nitrogen 17 mg/dL (8-24); Bun/Creatinine Ratio 22.3 (12.0-20.0); CO2, Blood 24 mmol/L (21-32); Calcium, Blood 9.1 mg/dL (8.5-10.1); Chloride, Blood 104 mmol/L (98-108); Creatinine, Blood 0.76 mg/dL (0.40-1.00); Glomerular Filtration Rate >60 (60-); Glucose, Blood 91 mg/dL (70-99); Potassium, Blood 4.8 mmol/L (3.5-5.5); Sodium, Blood 135 mmol/L (136-145)
--- NOTE | 2021-08-04 13:10 | NUR ---
ELEVATED HR: LATE ENTRY FOR 12:15 TELEMETRY CALLED TO NOTIFY THE RN THAT THE PATIENT WAS EXPERIENCING HR'S IN THE 120S (AFIB). PATIENT WAS UP TO THE BEDSIDE COMMODE. HR WAS NOT SUSTAINED IN THE 120S. PATIENT ASYMPTOMATIC. PATIENT DENIED PAIN OR DISCOMFORT OF ANY KIND. ONCE THE PATIENT WAS BACK IN THE RECLINER, THE HR WENT BACK DOWN TO HIGH 90S AND LOW 100S.
--- NOTE | 2021-08-04 14:18 | NUR ---
Pt. is sitting in recliner and welcomes my visit. Pt. is unsettled about the outcome of an upcoming stress test, as well as returning to the cared nursing facility. With a calming presence normalize the pt. experience. Pt. displays evidence of agreement. Re-establish rapport. 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 Pt. displayed evidence of trust and engagement. Prayed with Pt. Pt. verbalized gratitude for the spiritual care visit.
--- NOTE | 2021-08-04 16:38 | NUR ---
SHIFT SUMMARY: PATIENT IS ALERT AND ORIENTED X4. SHE WORKED WITH PT IN THE AM. THEY SWITCHED HER TO A TWO PERSON PIVOT WITH A WALKER AND GAIT BELT. SHE NO LONGER USES THE PUREWICK AND HAS FREQUENTLY BEEN USING THE BEDSIDE COMMODE WITH ASSISTANCE. SHE HAD THE FIRST PART OF HER STRESS TEST AT 1500 AND WILL HAVE THE SECOND AT [id number] TOMORROW MORNING. SHE HAS HAD MILD CHEST PAIN SINCE THE STRESS TEST AND HAS HAD PAIN IN HER BACK AND HEAD. SHE IS NOT TO HAVE CAFFEINE AFTER 1900 AND TO BE NPO AFTER MIDNIGHT. SHE IS PLEASANT AND COOPERATIVE WITH CARE.
--- NOTE | 2021-08-05 05:37 | NUR ---
SHIFT SUMMARY: PT IS A/OX4. SHE DID NOT HAVE C/O PAIN THIS NOC SHIFT. TELE: A FLUTTER/71. SHE WILL BE COMPLETING DAY 2 OF THE STRESS TEST. SHE'S BEEN NPO SINCE MIDNIGHT. AND [facility].
[2021-08-05 12:04] LABS: Influenza A, PCR NEGATIVE (NEGATIVE); Influenza B, PCR NEGATIVE (NEGATIVE); Resp Syncytial Virus, PCR NEGATIVE (NEGATIVE); SARS-Cov-2 (COVID-19) PCR, MMC NEGATIVE (NEGATIVE)
--- NOTE | 2021-08-05 17:20 | NUR ---
SHIFT SUMMARY PATIENT A&OX4. 2P PIVOT TO [facility]. SPLINT ON LEFT LEG FROM PREVIOUS ANKLE ORIF. TELE MONITOR READING A-FIB/A-FLUTTER IN 100S. C/O CHEST PAIN. MEDICATED WITH NITRO X2. SLIGHTLY HYPOTENSIVE AFTER NITRO. ABNORMAL STRESS TEST RESULTS. CARDIOLOGY CONSULTED AND PLANNING FOR CARDIAC CATHERIZATION TOMORROW. NPO AFTER MN. AT BEDSIDE MOST OF DAY. WILL CONTINUE TO MONITOR.
--- NOTE | 2021-08-06 05:14 | NUR ---
ZAY A/OX4, C/O BACK PAIN DUE TO MOVEMENT DURING STRESS TEST. PATIENT STATES SHE DOES NOT WANT TO USE NARCOTICS AND WAS HESITANT TO TAKE TYLENOL HOWEVER AGREED IN THE END. PER PATIENT THERE WAS PRIOR HISTORY OF BEING ON A LOT OF NARCOTICS AND SHE WOULD "RATHER BE IN PAIN THAN GO BACK." PATIENT ALSO VERY OVERWHELMED AT CURRENT SITUATIONS, STATES THAT SHE HAS BEEN GIVEN A LOT OF INFORMATION AND IS TOO MUCH TO HANDLE. VERBALIZED THAT SHE IS ANXIOUS REGARDING THE POSSIBILITY OF NEEDING OPEN HEART SURGERY. COMFORTED PATIENT AND PROVIDED THERAPUETIC COMMUNICATION. UNABLE TO PALPATE PULSE TO LLE DUE TO CAST HOWEVER PATIENT ABLE TO WIGGLE TOES, SENSATION PRESENT AND TOES A WARM (NOT COOL) TO TOUCH. PATIENT REQUESTING XANAX SHE STATES SHE TAKES THAT AT HOME. DR. DUMONT NOTIFIED WITH ORDER TO RESTART, NOTIFIED OF "SEVERE INTERACTION WARNING" WITH DILTIAZEM HOWEVER PER MD OKAY TO RESTART.
--- NOTE | 2021-08-06 12:52 | NUR ---
TRANSFER UPDATE REPORT JOSEFINA DAWIT RN AT 1250. PT CURRENTLY IN WEAVING LOOM OPERATOR.
--- NOTE | 2021-08-06 13:18 | NUR ---
PATIENT TAKEN TO PROJECT ASSOCIATE FOR PROCEDURE. REPORT CALLED TO RECEIVING AUTOMOTIVE PROFESSIONAL. PATIENT INFORMED OF NEW ROOM ASSISGNMENT AND GIVEN PATIENTS PURSE, GAME, AND GLASSES. ALL OTHER BELONGINGS PLACED IN BAG AND TAKEN DOWN TO PCU 12 INLCUDING PATIENTS THAKKAR.
--- NOTE | 2021-08-06 15:11 | NUR ---
TRANSFER UPDATE PT ARRIVED FROM WEIGHT CALCULATOR AT 1325 VIA HOSPITAL BED. PT ON RA UPON ARRIVAL. TR BAND IN PLACE ON RIGHT WRIST, C/D/I WITH MINOR TENDERNESS NOTED ABOVE SITE. NO REPORT OF CHEST PAIN/PRESSURE AT TIME OF ARRIVAL TO PCU. IN ROOM WHEN PT ARIVED TO UNIT. BELONGINGS BROUGHT DOWN BY STAFF AND PREVIOUSLY.
--- NOTE | 2021-08-06 17:07 | NUR ---
CONTACTED FOR UPDATE ON DISCHARGE OF PT. INFORMED THISRN THAT PT NEEDS A PHYSICAL THERAPY EVAL DONE BEFORE DISCHARGE. PT NOTIFIED THAT SHE WILL NEED AN EVALUATION FROM PHYSICAL THERAPY TOMORROW AND WILL POSSIBLY BE DISCHARGED TOMROOROW. PT UNDERSTOOD AND AGREED.
--- NOTE | 2021-08-06 18:57 | NUR ---
SHIFT SUMMARY PT A/O X4 AND COOPERATIVE OF CARE SINCE ARRIVAL TO UNIT. PT HAD PROCEDURE IN NEUROBIOLOGIST TODAY, NO INTERVENTIONS. RIGHT RADIAL SITE C/D/I WITH SLIGHT SWELLING ABOVE SITE INITIALLY, SWELLING HAS NOT PROGRESSED. PT ON BEDPAN DURING SHIFT, PT AGREED TO TRY GETTING TO BEDSIDE COMMODE WITH 2 PERSON ASSIST. NO REPORT OF CHEST PAIN/PRESSURE SINCE ARRIVAL TO UNIT. NO REPORT OF SOB/DYSPNEA SINCE ARRIVAL TO UNIT.
[2021-08-07] MEDS ORDERED: METO25 PO (10:40)
[2021-08-07] MEDS ORDERED: XARELTO20 MG PO (10:44)
[2021-08-07] MEDS ORDERED: DILT120ERA PO (10:44)
[2021-08-07] MEDS ORDERED: MIRALAX17 GM PO (10:45)
--- NOTE | 2021-08-07 11:52 | NUR ---
DISCHARGE SUMMARY PT A&Ox4, VSS, SPO2>92 RA. DISCHARGE INSTRUCTIONS PROVIDE, PT DRESS IN OWN CLOTHES. IV REMOVED, WNL. PT TAKEN OUT IN A WHEELCHAIR WITH BELONGINGS AT APPROXIMATELY 1150.
--- NOTE | 2021-08-07 12:12 | NUR ---
THIS RN AGREES W/ STUDENT DOCUMENTATION THIS SHIFT.
== END 2021-08-07 12:33 | disposition home health service (06) | DRG 286 ==
LOC: ER 09:10 → MEDS 09:11 → PCU 08-06 13:20
PROVIDERS: Emergency Medicine; Internal Medicine; Nurse Practitioner Acute Care; ADMIT Internal Medicine
PROC: 4A023N7 Measurement of Cardiac Sampling and Pressure, Left Heart, Percutaneous Approach (ICD-10-PCS; principal; 2021-08-06)
PROC: B2111ZZ Fluoroscopy of Multiple Coronary Arteries using Low Osmolar Contrast (ICD-10-PCS; 2021-08-06)
PROC: B2151ZZ Fluoroscopy of Left Heart using Low Osmolar Contrast (ICD-10-PCS; 2021-08-06)
DX: I48.91 Unspecified atrial fibrillation (principal); I50.31 Acute diastolic (congestive) heart failure; F11.20 Opioid dependence, uncomplicated; G47.30 Sleep apnea, unspecified; R07.9 Chest pain, unspecified; Z20.822 Contact with and (suspected) exposure to COVID-19; R29.6 Repeated falls; E66.9 Obesity, unspecified; M54.9 Dorsalgia, unspecified; F41.9 Anxiety disorder, unspecified; F31.9 Bipolar disorder, unspecified; E87.70 Fluid overload, unspecified; I34.0 Nonrheumatic mitral (valve) insufficiency; G89.4 Chronic pain syndrome; K22.2 Esophageal obstruction; I27.20 Pulmonary hypertension, unspecified; K21.9 Gastro-esophageal reflux disease without esophagitis; Z87.81 Personal history of (healed) traumatic fracture; Z68.32 Body mass index [BMI] 32.0-32.9, adult; Z90.710 Acquired absence of both cervix and uterus; Z90.49 Acquired absence of other specified parts of digestive tract; Z98.84 Bariatric surgery status; Z98.890 Other specified postprocedural states; Z85.850 Personal history of malignant neoplasm of thyroid; Z79.899 Other long term (current) drug therapy
CPT/HCPCS: 0241U; 36415; 71045; 71260; 76937; 78452; 80048; 80053; 83735; 83880; 84484; 85025; 85027; 93005; 93010; 93017; 93308; 93321; 93458; 96365; 96366; 96367; 96375; 96376; 97110; 97162; 97530; 99152; 99153; 99285-25; A9270; A9500; C1769; C1887; C1894; G0378; J0706; J1644; J1940; J2250; J2270; J2785; J3010; J3475; J7030; J7040; Q9967

== ENCOUNTER → 2022-01-21 | Outpatient (CLI) | payer OTHER ==
[~2022-01-21] MED LIST changes: +DILT120ERA PO; +METO25 PO; +MIRALAX17 GM PO; +XARELTO20 MG PO
== END | disposition home or self-care (01) ==
LOC: LAB 15:45 → LAB SHORT 15:45
DX: R39.15 Urgency of urination (principal)
CPT/HCPCS: 87077; 87086; 87186

== ENCOUNTER → 2022-06-18 | Outpatient (CLI) | payer OTHER ==
[~2022-06-18] MED LIST changes: +CEPH500 PO; +Ventolin/Prove6.7 GM INH; +ZANAFLEX413 PO
[2022-06-18 13:52] LABS: BASOPHILS ABSOLUTE AUTO 0.01 K/mm3 (0.00-0.23); BASOPHILS PERCENT AUTO 0 % (0-2); EOSINOPHILS ABSOLUTE AUTO 0.01 K/mm3 (0.00-0.68); EOSINOPHILS PERCENT AUTO 0 % (0-6); Hematocrit 42.1 % (33.0-51.0); Hemoglobin 14.1 g/dL (11.5-16.0); IMMATURE GRAN ABSOLUTE AUTO 0.14 K/mm3 (0.00-0.10); IMMATURE GRAN PERCENT AUTO 1 % (0-1); LYMPHOCYTES ABSOLUTE AUTO 1.62 K/mm3 (0.84-5.20); LYMPHOCYTES PERCENT AUTO 13 % (21-46); MONOCYTES ABSOLUTE AUTO 1.16 K/mm3 (0.16-1.47); MONOCYTES PERCENT AUTO 10 % (4-13); Mean Corpuscular HGB 33.7 pg (26.0-34.0); Mean Corpuscular HGB Conc 33.5 g/dL (31.5-36.5); Mean Corpuscular Volume 101 fL (80-100); Mean Platelet Volume 10.5 fL (9.1-12.4); NEUTROPHILS ABSOLUTE AUTO 9.16 K/mm3 (1.96-9.15); NEUTROPHILS PERCENT AUTO 76 % (41-73); Platelet Count 188 K/mm3 (150-400); RDW Coefficient Variation 12.1 % (11.7-14.2); RDW Standard Deviation 45.1 fL (35.1-46.3); Red Blood Cell Count 4.19 M/mm3 (3.80-5.20)
[2022-06-18 14:05] LABS: Albumin, Blood 2.8 g/dL (3.4-5.0); Albumin/Globulin Ratio 0.9 (0.8-1.8); Bilirubin, Total 0.4 mg/dL (0.1-1.0); Bun/Creatinine Ratio 29.7 (12.0-20.0); Calcium, Blood 8.6 mg/dL (8.5-10.1); Creatinine, Blood 1.11 mg/dL (0.40-1.00); Globulin, Blood 3.2 g/dL (2.2-4.0); Potassium, Blood 4.3 mmol/L (3.5-5.5)
== END | disposition home or self-care (01) ==
LOC: LAB SHORT 13:49 → LAB 13:49
PROVIDERS: Family Medicine
DX: R55 Syncope and collapse (principal)
CPT/HCPCS: 80053; 84484; 85025

== ENCOUNTER 2022-08-17 00:32 | Day surgery (SDC) | payer OTHER | END 2022-08-17 23:08 | disposition home or self-care (01) | LOC: WOUND 00:32 | DX: S81.812D Laceration without foreign body, left lower leg, subsequent encounter (principal); X58.XXXD Exposure to other specified factors, subsequent encounter; L97.929 Non-pressure chronic ulcer of unspecified part of left lower leg with unspecified severity; I87.312 Chronic venous hypertension (idiopathic) with ulcer of left lower extremity; I87.2 Venous insufficiency (chronic) (peripheral) | CPT/HCPCS: G0463 ==

== ENCOUNTER 2022-10-05 14:12 | Emergency (ER) | payer OTHER ==
[~2022-10-05] VITALS: Ht 167.6 cm; Wt 85.7 kg
[2022-10-05 14:53] LABS: BASOPHILS ABSOLUTE AUTO 0.02 K/mm3 (0.00-0.23); BASOPHILS PERCENT AUTO 0 % (0-2); EOSINOPHILS ABSOLUTE AUTO 0.05 K/mm3 (0.00-0.68); EOSINOPHILS PERCENT AUTO 1 % (0-6); Hematocrit 35.4 % (33.0-51.0); IMMATURE GRAN ABSOLUTE AUTO 0.19 K/mm3 (0.00-0.10); IMMATURE GRAN PERCENT AUTO 2 % (0-1); LYMPHOCYTES ABSOLUTE AUTO 1.49 K/mm3 (0.84-5.20); LYMPHOCYTES PERCENT AUTO 18 % (21-46); MONOCYTES ABSOLUTE AUTO 0.83 K/mm3 (0.16-1.47); MONOCYTES PERCENT AUTO 10 % (4-13); Mean Corpuscular HGB 31.7 pg (26.0-34.0); Mean Corpuscular HGB Conc 31.1 g/dL (31.5-36.5); Mean Corpuscular Volume 102 fL (80-100); Mean Platelet Volume 9.8 fL (9.1-12.4); NEUTROPHILS ABSOLUTE AUTO 5.94 K/mm3 (1.96-9.15); NEUTROPHILS PERCENT AUTO 70 % (41-73); Platelet Count 235 K/mm3 (150-400); RDW Standard Deviation 56.5 fL (35.1-46.3); Red Blood Cell Count 3.47 M/mm3 (3.80-5.20); White Blood Cell Count 8.52 K/mm3 (4.00-11.30)
[2022-10-05 15:10] LABS: International Normalized Ratio 1.18; Prothrombin Time Results 12.3 Sec (9.7-11.5)
[2022-10-05 15:11] LABS: Albumin, Blood 2.6 g/dL (3.4-5.0); Bilirubin, Total 0.3 mg/dL (0.1-1.0); Bun/Creatinine Ratio 14.9 (12.0-20.0); Calcium, Blood 7.9 mg/dL (8.5-10.1); Creatinine, Blood 1.01 mg/dL (0.40-1.00); Globulin, Blood 2.6 g/dL (2.2-4.0); Magnesium, Blood 2.1 mg/dL (1.6-2.4); Potassium, Blood 4.2 mmol/L (3.5-5.5); Total Protein, Blood 5.2 g/dL (6.4-8.2)
[2022-10-05 16:04] LABS: Source, Urine Straight Cath
[2022-10-05 16:08] LABS: Appearance, Urine Hazy (Clear); Blood, Urine Neg (Neg); Color, Urine Yellow (P-Yellow); Glucose Qualitative, Urine Neg (Neg); Ketones, Urine 1+ (Neg); Leukocyte Esterase, Urine 1+ (Neg); Nitrite, Urine Neg (Neg); Protein, Urine 2+ (Neg); Urobilinogen, Urine 2+ (Normal)
[2022-10-05 16:12] LABS: Bilirubin, Urine 1+ (Neg)
[2022-10-05 16:19] LABS: Granular Casts 0-2 /lpf (0)
[2022-10-05 16:20] LABS: Amorphous Light (0-Heavy); Bacteria Mod /hpf; Mucus Mod (0-Heavy); Red Blood Cells, Urine 0-2 /hpf (0-2); Squamous Epithelial Cells Few /hpf (Few)
[2022-10-05 17:30] VITALS: BP 120/83
[2022-10-05] MEDS ORDERED: DILTIAZEM 24HR120 M2 PO (18:12)
== END 2022-10-05 18:42 | disposition home or self-care (01) ==
LOC: ER 14:12
PROVIDERS: Student in an Organized Health Care Education/Training Program
DX: E86.0 Dehydration (principal); I95.1 Orthostatic hypotension; N17.9 Acute kidney failure, unspecified; S81.812A Laceration without foreign body, left lower leg, initial encounter; W01.0XXA Fall on same level from slipping, tripping and stumbling without subsequent striking against object, initial encounter; I48.91 Unspecified atrial fibrillation; Z79.899 Other long term (current) drug therapy; Z79.01 Long term (current) use of anticoagulants
CPT/HCPCS: 51701; 70450; 72125; 73502; 80053; 81001; 83735; 84145; 85025; 85610; 85730; 86850; 86900; 86901; 87086; 93005; 93010; 96361; 96374; 96375; 99285-25; A9270; J2765; J3010; J7030

== ENCOUNTER 2023-01-13 02:17 | Day surgery (SDC) | payer OTHER ==
[~2023-01-13 02:17] MED LIST changes: +DILTIAZEM 24HR120 M2 PO
== END 2023-01-13 22:45 | disposition home or self-care (01) ==
LOC: WOUND 02:17
DX: L97.322 Non-pressure chronic ulcer of left ankle with fat layer exposed (principal); L97.812 Non-pressure chronic ulcer of other part of right lower leg with fat layer exposed; S50.811D Abrasion of right forearm, subsequent encounter; T14.8XXD Other injury of unspecified body region, subsequent encounter; S51.811A Laceration without foreign body of right forearm, initial encounter; I73.9 Peripheral vascular disease, unspecified; I87.2 Venous insufficiency (chronic) (peripheral); R29.6 Repeated falls; X58.XXXD Exposure to other specified factors, subsequent encounter
CPT/HCPCS: A9270; G0463

== ENCOUNTER 2023-01-17 15:09 | Inpatient (IN) | payer OTHER ==
[~2023-01-17] VITALS: Ht 167.6 cm; Wt 79.4 kg
[2023-01-17 16:25] LABS: BASOPHILS ABSOLUTE AUTO 0.05 K/mm3 (0.00-0.23); BASOPHILS PERCENT AUTO 1 % (0-2); EOSINOPHILS ABSOLUTE AUTO 0.07 K/mm3 (0.00-0.68); EOSINOPHILS PERCENT AUTO 1 % (0-6); Hematocrit 38.6 % (33.0-51.0); Hemoglobin 11.9 g/dL (11.5-16.0); IMMATURE GRAN ABSOLUTE AUTO 0.29 K/mm3 (0.00-0.10); IMMATURE GRAN PERCENT AUTO 3 % (0-1); LYMPHOCYTES ABSOLUTE AUTO 0.79 K/mm3 (0.84-5.20); LYMPHOCYTES PERCENT AUTO 9 % (21-46); MONOCYTES ABSOLUTE AUTO 0.86 K/mm3 (0.16-1.47); MONOCYTES PERCENT AUTO 10 % (4-13); Mean Corpuscular HGB 29.9 pg (26.0-34.0); Mean Corpuscular HGB Conc 30.8 g/dL (31.5-36.5); Mean Corpuscular Volume 97 fL (80-100); Mean Platelet Volume 9.8 fL (9.1-12.4); NEUTROPHILS ABSOLUTE AUTO 6.69 K/mm3 (1.96-9.15); NEUTROPHILS PERCENT AUTO 77 % (41-73); Platelet Count 262 K/mm3 (150-400); RDW Coefficient Variation 17.4 % (11.7-14.2); RDW Standard Deviation 62.5 fL (35.1-46.3); Red Blood Cell Count 3.98 M/mm3 (3.80-5.20); White Blood Cell Count 8.75 K/mm3 (4.00-11.30)
[2023-01-17 16:54] LABS: Albumin, Blood 3.1 g/dL (3.4-5.0); Albumin/Globulin Ratio 0.8 (0.8-1.8); Bilirubin, Total 0.5 mg/dL (0.1-1.0); Bun/Creatinine Ratio 16.8 (12.0-20.0); Calcium, Blood 8.7 mg/dL (8.5-10.1); Creatinine, Blood 0.83 mg/dL (0.40-1.00); Globulin, Blood 3.7 g/dL (2.2-4.0); Potassium, Blood 3.6 mmol/L (3.5-5.5); Total Protein, Blood 6.8 g/dL (6.4-8.2)
[2023-01-17] MEDS ORDERED: DILTIAZEM 24HR300 M2 PO ×2 (19:21)
[2023-01-17] MEDS ORDERED: POTA10T PO ×2 (19:22)
[2023-01-17] MEDS ORDERED: FUROSEMIDE20 MG PO ×2 (19:22)
[2023-01-17 21:29] VITALS: BP 137/88
--- NOTE | 2023-01-17 22:30 | NUR ---
ARRIVAL TO PCU 5 PT ARIVED TO PCU 5 AT APPROXIMATELY 2130. [facility] BY 4 CLINICAL STAFF MEMBERS. PT A&Ox4, COMMUNICATES NEEDS APPROPRIATELY, ORIENTED TO CALL LIGHT/UNIT. AFIB 100's, BP STABLE, PT REPORTS MILD PALPITATIONS AND CP STATING THAT THIS HAS BEEN NORMAL FOR HER SINCE HAVING AFIB. SpO2> 92% RA, REPORTS MILD/INTERMITTENT SOB. SON AT BEDSIDE. PT USED BEDPAN UPON ARRIVAL AND REQUESTED TO HAVE PUREWICK PLACED. BED IN LOWEST POSITION, CALL LIGHT IN REACH.
[2023-01-17 23:13] VITALS: BP 154/104
[2023-01-18 03:13] VITALS: BP 152/91
[2023-01-18 03:28] LABS: Hematocrit 36.7 % (33.0-51.0); Hemoglobin 11.2 g/dL (11.5-16.0); Mean Corpuscular HGB 29.5 pg (26.0-34.0); Mean Corpuscular HGB Conc 30.5 g/dL (31.5-36.5); Mean Corpuscular Volume 97 fL (80-100); Mean Platelet Volume 9.8 fL (9.1-12.4); Platelet Count 225 K/mm3 (150-400); RDW Coefficient Variation 17.5 % (11.7-14.2); RDW Standard Deviation 62.2 fL (35.1-46.3); White Blood Cell Count 6.21 K/mm3 (4.00-11.30)
--- NOTE | 2023-01-18 04:50 | NUR ---
SHIFT SUMMARY SEE PREVIOUS NOTE. PT A&Ox4, CALLS AND COMMUNICATES NEEDS APPROPRIATELY. BP STABLE, AFIB 90-100's, DENIES CP/PALPITATIONS AT THIS TIME. SpO2> 92% RA, DENIES SOB AT THIS TIME. CONTINENT OF URINE, PUREWICK PATENT. NO BM THIS SHIFT. NO OTHER EVENTS, WILL REPORT TO ONCOMING RN.
[2023-01-18 07:32] VITALS: BP 141/92
[2023-01-18 11:20] VITALS: BP 116/76
--- NOTE | 2023-01-18 13:33 | NUR ---
WOUND CARE PT WITH FULL THICKNESS VENOUS ULCERS TO ANTERIOR RLE AND LATERAL LLE. WOUNDS CLEANSED WITH DERMAL WOUND, MEDIHONEY TO WOUND BEDS, THEN COVERED WITH BORDERED FOAM. PT WITH HIGH ANXIETY CONCERNING MRSA. SHE BELIEVES HER WOUNDS MAY BE INFECTED. WOUNDS DO NOT APPEAR INFECTED BUT CULTURE OBTAINED.
[2023-01-18 15:07] VITALS: BP 127/83
--- NOTE | 2023-01-18 18:07 | NUR ---
SHIFT SUMMARY; ASSUMED CARE AT 0700, A/A/0X4, WEAK BUT IS ABLE TO MOVE SELF ON GURNEY TO REPOSITION. PURWICK IN PLACE, UP TO BEDSIDE COMMODE WITH ASSISTANCE FOR BM EARLY IN SHIFT. MEDICATED PER EMAR WITH IV LOPRESSOR FOR HR IN 120'S. REMAINED 90-100 FOR REMAINDER OF SHIFT AFTER 2 DOSES. DENIES CP, REPORTED SOB AND LABORED BREATHING WITH SATS REMAINING >94. PLACED ON 2L O2 VIA NC, LABORED BREATHING SUBSIDED. CONSULT CALLED IN TO DR. PERAZA OFFICE PER ORDERS, FAMILY AT BEDSIDE MOST OF SHIFT. BRUISING SCATTERED T/O BODY FROM FALLS AT HOME, SEE PHOTOS IN CHART. WOULD CARE EVAL BY HIEU CASTILLO. MEPILEX TO RIGHT ANKLE AND LEFT OUTSIDE OF FOOT. NO ACUTE MEDICAL CHANGES DURING SHIFT, WILL CONTINUE TO MONITOR AND TREAT UNTIL CHANGE OF SHIFT.
[2023-01-18 19:54] VITALS: BP 112/71
[2023-01-19 03:29] VITALS: BP 146/99; BP 46/99
--- NOTE | 2023-01-19 05:26 | NUR ---
SHIFT SUMMARY PT A&Ox4, CALLS AND COMMUNICATES NEEDS APPROPRIATELY. BP STABLE, AFIB 90-100's, DENIES CP/PALPITATIONS AT THIS TIME. SpO2> 92% RA WHILE AWAKE, DESATURATED TO 87% WHILE SLEEPING, PLACED ON 2L VIA NC WHILE SLEEP, DENIES SOB. CONTINENT OF URINE, PUREWICK PATENT. NO BM THIS SHIFT. NO OTHER EVENTS, WILL REPORT TO ONCOMING RN.
[2023-01-19 07:20] VITALS: BP 133/80
[2023-01-19 11:52] VITALS: BP 136/82
--- NOTE | 2023-01-19 14:47 | NUR ---
Upon receiving a referral for spiritual care, I visited the patient. She states that she is too tired for a visit. I ask if I could say a prayer for her and she agrees and then is very tearful. When then talk at length about her recently spouse, Ronald. We talk about her stressors, her grief process and her family support. Patient states that it is a meaningful dialog at that she appreciates the prayer as several family members come in the m. I allow them to visit.
[2023-01-19 16:17] VITALS: BP 132/88
--- NOTE | 2023-01-19 17:52 | NUR ---
SHIFT SUMMARY; ASSUMED CARE AT 0700, A/A/OX4. PLEASANT AND COOPERATIVE WITH CARE. REPOSITIONS SELF ON GURNEY, WORKED WITH PT DURING SHIFT. PURWICK IN PLACE FOR INCONTINANCE. SON AT BEDSIDE MOST OF SHIFT. MEDICATED FOR HR WITH LOPRESSOR IV X2 PER ORDERS. DENIES SOB OR CHEST PAIN. 1L 02 VIA NC FOR SOB WITH EXERTION, SATS MAININTAINED >92%. WILL CONTINUE TO MONITOR AND TREAT UNTIL CHANGE OF SHIFT.
[2023-01-19 20:18] VITALS: BP 149/101
[2023-01-19 23:36] VITALS: BP 137/99
[2023-01-20 03:53] VITALS: BP 148/104
[2023-01-20 04:18] LABS: Hematocrit 37.7 % (33.0-51.0); Hemoglobin 11.6 g/dL (11.5-16.0); Mean Corpuscular HGB 29.3 pg (26.0-34.0); Mean Corpuscular HGB Conc 30.8 g/dL (31.5-36.5); Mean Corpuscular Volume 95 fL (80-100); Mean Platelet Volume 10.1 fL (9.1-12.4); Platelet Count 249 K/mm3 (150-400); RDW Coefficient Variation 16.9 % (11.7-14.2); RDW Standard Deviation 60.1 fL (35.1-46.3); Red Blood Cell Count 3.96 M/mm3 (3.80-5.20); White Blood Cell Count 6.93 K/mm3 (4.00-11.30)
--- NOTE | 2023-01-20 04:48 | NUR ---
SHIFT SUMMARY PT A&Ox4, CALLS AND COMMUNICATES NEEDS APPROPRIATELY. BP STABLE, AFIB 90-100's, DENIES CP/PALPITATIONS/PRESSURE. SpO2> 92% RA WHILE AWAKE, 1L VIA NC WHILE SLEEP, DENIES SOB. CONTINENT OF URINE, [employer] PATENT. NO BM THIS SHIFT. NO OTHER EVENTS, WILL REPORT TO ONCOMING RN.
[2023-01-20 04:52] LABS: Albumin, Blood 2.4 g/dL (3.4-5.0); Anion Gap 4 mmol/L (6-16); Blood Urea Nitrogen 12 mg/dL (8-24); Bun/Creatinine Ratio 15.5 (12.0-20.0); CO2, Blood 28 mmol/L (21-32); Calcium, Blood 8.5 mg/dL (8.5-10.1); Chloride, Blood 109 mmol/L (98-108); Creatinine, Blood 0.77 mg/dL (0.40-1.00); Glomerular Filtration Rate 84 (60-); Glucose, Blood 91 mg/dL (70-99); Phosphorus, Blood 2.6 mg/dL (2.5-4.9); Potassium, Blood 4.1 mmol/L (3.5-5.5); Sodium, Blood 141 mmol/L (136-145)
[2023-01-20 06:11] LABS: BASOPHILS ABSOLUTE MAN 0.06 K/mm3 (0.00-0.23); BASOPHILS PERCENT MAN 1 % (0-2); EOSINOPHILS ABSOLUTE MAN 0.06 K/mm3 (0.00-0.68); EOSINOPHILS PERCENT MAN 1 % (0-6); LYMPHOCYTES ABSOLUTE MAN 1.38 K/mm3 (0.84-5.20); LYMPHOCYTES PERCENT MAN 20 % (21-46); METAMYELOCYTE ABSOLUTE MAN 0.27 K/mm3 (0.00-0.00); METAMYELOCYTE PERCENT MAN 4 % (0-0); MONOCYTES ABSOLUTE MAN 0.97 K/mm3 (0.16-1.47); MONOCYTES PERCENT MAN 14 % (4-13); MYELOCYTE ABSOLUTE MAN 0.27 K/mm3 (0.00-0.00); MYELOCYTE PERCENT MAN 4 % (0-0); NEUTROPHILS ABSOLUTE MAN 3.88 K/mm3 (1.96-9.15); SEG NEUTROPHILS PERCENT MAN 56 % (41-73); TOTAL CELLS COUNTED 100
[2023-01-20 08:58] VITALS: BP 135/105
[2023-01-20 12:53] VITALS: BP 109/75
[2023-01-20] MEDS ORDERED: DILT180 PO ×2 (13:25)
[2023-01-20] MEDS ORDERED: ELIQUIS5 MG PO ×2 (13:26)
[2023-01-20] MEDS ORDERED: ELIQUIS5 M2 PO ×2 (13:26)
--- NOTE | 2023-01-20 15:03 | NUR ---
DISCHARGE SUMMARY ALERT, ORIENTED, PLEASANT, COOPERATIVE. TEARFUL AT TIMES, SPOUSE ON 01/16. TELE AFIB RVR RATE 100-140. MANAGED WITH PO DILTIAZEM AND PRN LOPRESSOR. RATE IN AFTERNOON STABLE IN 90'S. HOME O2 EVAL DONE, NO NEED FOR OXYGEN. TOLERATING CARDIAC DIET AND LIQUIDS. VOIDING WELL. WOUND CARE ROUNDED TO CHANGE DRESSING TO BLE WOUNDS. DISCHARGE ORDER GIVEN. DISCHARGE EDUCATION GIVEN ON NEW MEDS, FOLLOW UP WITH PCP, CARDIOLOGY, AND HOME HEALTH FOR PT/OT/NURSING. IV DC'D WNL. PATIENT LEFT UNIT VIA WHEELCHAIR WITH SON FOR HOME AT 1505.
== END 2023-01-20 14:30 | disposition home or self-care (01) | DRG 299 ==
LOC: ER 15:09 → PCU 15:10
PROVIDERS: Family Medicine; Nurse Practitioner Acute Care; Physician Assistant; ADMIT Internal Medicine
DX: I82.442 Acute embolism and thrombosis of left tibial vein (principal); I26.99 Other pulmonary embolism without acute cor pulmonale; I48.20 Chronic atrial fibrillation, unspecified; F31.9 Bipolar disorder, unspecified; D64.9 Anemia, unspecified; Z66 Do not resuscitate; R29.6 Repeated falls; L97.521 Non-pressure chronic ulcer of other part of left foot limited to breakdown of skin; R54 Age-related physical debility; F41.9 Anxiety disorder, unspecified; Z79.899 Other long term (current) drug therapy; W18.30XA Fall on same level, unspecified, initial encounter; Z79.02 Long term (current) use of antithrombotics/antiplatelets
CPT/HCPCS: 36415; 71260; 80053; 80069; 84484; 85025; 85027; 87070; 87075; 87205; 93005; 93010; 93306; 94761; 96372; 96372-59; 96374-59; 96375; 96376; 97110; 97162; 97530; 99285-25; A9270; G0378; J1650; J2270; Q9967

== ENCOUNTER 2023-02-02 05:31 | Day surgery (SDC) | payer OTHER ==
[~2023-02-02 05:31] MED LIST changes: +DILT180 PO; +DILTIAZEM 24HR300 M2 PO; +ELIQUIS5 M2 PO; +ELIQUIS5 MG PO; +FUROSEMIDE20 MG PO; +POTA10T PO
== END 2023-02-02 22:45 | disposition home or self-care (01) ==
LOC: WOUND 05:31
DX: L97.322 Non-pressure chronic ulcer of left ankle with fat layer exposed (principal); L97.812 Non-pressure chronic ulcer of other part of right lower leg with fat layer exposed; T14.8XXD Other injury of unspecified body region, subsequent encounter; I87.2 Venous insufficiency (chronic) (peripheral); I73.9 Peripheral vascular disease, unspecified; I48.91 Unspecified atrial fibrillation
CPT/HCPCS: G0463

== ENCOUNTER 2023-02-09 05:18 | Day surgery (SDC) | payer OTHER | END 2023-02-09 22:50 | disposition home or self-care (01) | LOC: WOUND 05:18 | DX: L97.322 Non-pressure chronic ulcer of left ankle with fat layer exposed (principal); L97.812 Non-pressure chronic ulcer of other part of right lower leg with fat layer exposed; T14.8XXD Other injury of unspecified body region, subsequent encounter; X58.XXXD Exposure to other specified factors, subsequent encounter; R29.6 Repeated falls; I87.2 Venous insufficiency (chronic) (peripheral); I73.9 Peripheral vascular disease, unspecified; I48.91 Unspecified atrial fibrillation | CPT/HCPCS: A9270; G0463 ==

== ENCOUNTER 2023-02-16 20:12 | Emergency (ER) | payer OTHER ==
[~2023-02-16] VITALS: Ht 167.6 cm; Wt 75.8 kg
[2023-02-16] MEDS ORDERED: VALA500 PO (20:23)
[2023-02-16] MEDS ORDERED: Cipro500 MG PO (20:23)
[2023-02-16 20:24] LABS: BASOPHILS ABSOLUTE AUTO 0.03 K/mm3 (0.00-0.23); BASOPHILS PERCENT AUTO 0 % (0-2); EOSINOPHILS ABSOLUTE AUTO 0.03 K/mm3 (0.00-0.68); EOSINOPHILS PERCENT AUTO 0 % (0-6); Hemoglobin 10.8 g/dL (11.5-16.0); IMMATURE GRAN ABSOLUTE AUTO 0.05 K/mm3 (0.00-0.10); IMMATURE GRAN PERCENT AUTO 1 % (0-1); LYMPHOCYTES ABSOLUTE AUTO 2.78 K/mm3 (0.84-5.20); LYMPHOCYTES PERCENT AUTO 29 % (21-46); MONOCYTES ABSOLUTE AUTO 1.05 K/mm3 (0.16-1.47); MONOCYTES PERCENT AUTO 11 % (4-13); Mean Corpuscular HGB Conc 31.8 g/dL (31.5-36.5); Mean Corpuscular Volume 98 fL (80-100); Mean Platelet Volume 10.2 fL (9.1-12.4); NEUTROPHILS ABSOLUTE AUTO 5.59 K/mm3 (1.96-9.15); NEUTROPHILS PERCENT AUTO 59 % (41-73); Platelet Count 188 K/mm3 (150-400); RDW Coefficient Variation 17.3 % (11.7-14.2); RDW Standard Deviation 62.6 fL (35.1-46.3); Red Blood Cell Count 3.48 M/mm3 (3.80-5.20); White Blood Cell Count 9.53 K/mm3 (4.00-11.30)
[2023-02-16 20:47] LABS: Albumin, Blood 2.6 g/dL (3.4-5.0); Albumin/Globulin Ratio 0.8 (0.8-1.8); Bilirubin, Total 0.7 mg/dL (0.1-1.0); Bun/Creatinine Ratio 12.2 (12.0-20.0); Calcium, Blood 8.5 mg/dL (8.5-10.1); Creatinine, Blood 0.65 mg/dL (0.40-1.00); Globulin, Blood 3.4 g/dL (2.2-4.0); Potassium, Blood 3.3 mmol/L (3.5-5.5)
[2023-02-17] VITALS: BP 126/72
[2023-02-17 00:25] LABS: BASOPHILS ABSOLUTE AUTO 0.02 K/mm3 (0.00-0.23); BASOPHILS PERCENT AUTO 0 % (0-2); EOSINOPHILS ABSOLUTE AUTO 0.01 K/mm3 (0.00-0.68); EOSINOPHILS PERCENT AUTO 0 % (0-6); Hematocrit 31.7 % (33.0-51.0); Hemoglobin 10.2 g/dL (11.5-16.0); IMMATURE GRAN ABSOLUTE AUTO 0.06 K/mm3 (0.00-0.10); IMMATURE GRAN PERCENT AUTO 1 % (0-1); LYMPHOCYTES ABSOLUTE AUTO 0.89 K/mm3 (0.84-5.20); LYMPHOCYTES PERCENT AUTO 12 % (21-46); MONOCYTES ABSOLUTE AUTO 1.03 K/mm3 (0.16-1.47); MONOCYTES PERCENT AUTO 14 % (4-13); Mean Corpuscular HGB 30.8 pg (26.0-34.0); Mean Corpuscular HGB Conc 32.2 g/dL (31.5-36.5); Mean Corpuscular Volume 96 fL (80-100); Mean Platelet Volume 10.4 fL (9.1-12.4); NEUTROPHILS ABSOLUTE AUTO 5.21 K/mm3 (1.96-9.15); NEUTROPHILS PERCENT AUTO 72 % (41-73); Platelet Count 199 K/mm3 (150-400); RDW Coefficient Variation 17.3 % (11.7-14.2); RDW Standard Deviation 61.8 fL (35.1-46.3); Red Blood Cell Count 3.31 M/mm3 (3.80-5.20); White Blood Cell Count 7.22 K/mm3 (4.00-11.30)
[2023-02-17] MEDS ORDERED: AZIT250 PO (01:55)
[2023-02-17] MEDS ORDERED: DOCU100 PO (01:55)
== END 2023-02-17 01:00 | disposition home or self-care (01) ==
LOC: ER 20:12
PROVIDERS: Emergency Medicine
DX: B02.29 Other postherpetic nervous system involvement (principal); I48.91 Unspecified atrial fibrillation; J18.9 Pneumonia, unspecified organism; K59.00 Constipation, unspecified; D64.9 Anemia, unspecified; Z79.899 Other long term (current) drug therapy; Z79.01 Long term (current) use of anticoagulants
CPT/HCPCS: 71046; 80053; 83880; 84484; 85025; 93005; 93010; 96374; 99285-25; A9270

== ENCOUNTER 2023-04-14 14:15 | Emergency (ER) | payer OTHER ==
[~2023-04-14] VITALS: Ht 167.6 cm; Wt 69.0 kg
[~2023-04-14 14:15] MED LIST changes: +AZIT250 PO; +Cipro500 MG PO; +DOCU100 PO; +VALA500 PO
[2023-04-14 15:13] LABS: BASOPHILS ABSOLUTE AUTO 0.02 K/mm3 (0.00-0.23); BASOPHILS PERCENT AUTO 0 % (0-2); EOSINOPHILS PERCENT AUTO 0 % (0-6); Hematocrit 43.5 % (33.0-51.0); Hemoglobin 13.9 g/dL (11.5-16.0); IMMATURE GRAN ABSOLUTE AUTO 0.13 K/mm3 (0.00-0.10); IMMATURE GRAN PERCENT AUTO 1 % (0-1); LYMPHOCYTES ABSOLUTE AUTO 1.02 K/mm3 (0.84-5.20); LYMPHOCYTES PERCENT AUTO 9 % (21-46); MONOCYTES ABSOLUTE AUTO 1.15 K/mm3 (0.16-1.47); MONOCYTES PERCENT AUTO 11 % (4-13); Mean Corpuscular HGB 30.1 pg (26.0-34.0); Mean Corpuscular Volume 94 fL (80-100); NEUTROPHILS ABSOLUTE AUTO 8.54 K/mm3 (1.96-9.15); NEUTROPHILS PERCENT AUTO 79 % (41-73); Platelet Count 206 K/mm3 (150-400); RDW Coefficient Variation 14.9 % (11.7-14.2); RDW Standard Deviation 52.1 fL (35.1-46.3); Red Blood Cell Count 4.62 M/mm3 (3.80-5.20); White Blood Cell Count 10.86 K/mm3 (4.00-11.30)
[2023-04-14 15:41] LABS: Albumin/Globulin Ratio 0.8 (0.8-1.8); Bilirubin, Total 0.8 mg/dL (0.1-1.0); Bun/Creatinine Ratio 42.6 (12.0-20.0); Calcium, Blood 8.5 mg/dL (8.5-10.1); Creatinine, Blood 0.77 mg/dL (0.40-1.00); Globulin, Blood 3.6 g/dL (2.2-4.0); Potassium, Blood 5.1 mmol/L (3.5-5.5); Total Protein, Blood 6.6 g/dL (6.4-8.2)
[2023-04-14 16:42] LABS: Influenza A, PCR NEGATIVE (NEGATIVE); Influenza B, PCR NEGATIVE (NEGATIVE); Resp Syncytial Virus, PCR NEGATIVE (NEGATIVE); SARS-Cov-2 (COVID-19) PCR, MMC NEGATIVE (NEGATIVE)
[2023-04-14 18:15] VITALS: BP 125/94
== END 2023-04-14 18:19 | disposition home or self-care (01) ==
LOC: ER 14:15
PROVIDERS: Student in an Organized Health Care Education/Training Program
DX: R53.1 Weakness (principal); K59.00 Constipation, unspecified; R10.84 Generalized abdominal pain; Z11.52 Encounter for screening for COVID-19; I48.20 Chronic atrial fibrillation, unspecified; F31.9 Bipolar disorder, unspecified; K21.9 Gastro-esophageal reflux disease without esophagitis; Z79.01 Long term (current) use of anticoagulants; Z79.899 Other long term (current) drug therapy; R29.6 Repeated falls
CPT/HCPCS: 0241U; 74177; 80053; 85025; 93005; 93010; 96374-59; 99284-25; J2270; Q9967

== ENCOUNTER 2023-04-25 09:51 | Emergency (ER) | payer OTHER ==
[~2023-04-25] VITALS: Ht 167.6 cm; Wt 68.0 kg
[2023-04-25 10:20] LABS: BASOPHILS ABSOLUTE AUTO 0.01 K/mm3 (0.00-0.23); BASOPHILS PERCENT AUTO 0 % (0-2); EOSINOPHILS ABSOLUTE AUTO 0.02 K/mm3 (0.00-0.68); EOSINOPHILS PERCENT AUTO 0 % (0-6); Hematocrit 41.3 % (33.0-51.0); Hemoglobin 13.4 g/dL (11.5-16.0); IMMATURE GRAN ABSOLUTE AUTO 0.11 K/mm3 (0.00-0.10); IMMATURE GRAN PERCENT AUTO 1 % (0-1); LYMPHOCYTES ABSOLUTE AUTO 1.97 K/mm3 (0.84-5.20); LYMPHOCYTES PERCENT AUTO 26 % (21-46); MONOCYTES ABSOLUTE AUTO 0.85 K/mm3 (0.16-1.47); MONOCYTES PERCENT AUTO 11 % (4-13); Mean Corpuscular HGB 30.3 pg (26.0-34.0); Mean Corpuscular HGB Conc 32.4 g/dL (31.5-36.5); Mean Corpuscular Volume 93 fL (80-100); Mean Platelet Volume 11.1 fL (9.1-12.4); NEUTROPHILS ABSOLUTE AUTO 4.67 K/mm3 (1.96-9.15); NEUTROPHILS PERCENT AUTO 61 % (41-73); Platelet Count 173 K/mm3 (150-400); RDW Coefficient Variation 15.9 % (11.7-14.2); RDW Standard Deviation 54.4 fL (35.1-46.3); Red Blood Cell Count 4.42 M/mm3 (3.80-5.20); White Blood Cell Count 7.63 K/mm3 (4.00-11.30)
[2023-04-25 10:28] LABS: Bilirubin, Total 0.5 mg/dL (0.1-1.0); Bun/Creatinine Ratio 26.3 (12.0-20.0); Calcium, Blood 8.3 mg/dL (8.5-10.1); Creatinine, Blood 0.76 mg/dL (0.40-1.00); Globulin, Blood 2.9 g/dL (2.2-4.0); Potassium, Blood 3.2 mmol/L (3.5-5.5); Total Protein, Blood 5.9 g/dL (6.4-8.2)
[2023-04-25 15:15] VITALS: BP 139/101
== END 2023-04-25 15:46 | disposition home or self-care (01) ==
LOC: ER 09:51
PROVIDERS: Student in an Organized Health Care Education/Training Program
DX: R07.89 Other chest pain (principal); I48.91 Unspecified atrial fibrillation; I10 Essential (primary) hypertension; G89.29 Other chronic pain; M54.9 Dorsalgia, unspecified; F31.9 Bipolar disorder, unspecified; Z63.4 Disappearance and death of family member; Z63.79 Other stressful life events affecting family and household; Z79.51 Long term (current) use of inhaled steroids; Z79.899 Other long term (current) drug therapy; Z79.01 Long term (current) use of anticoagulants
CPT/HCPCS: 71046; 80053; 83690; 83880; 84484; 85025; 93005; 93010; 96374; 99285-25; A9270; J2060

== ENCOUNTER 2023-12-18 16:14 | Emergency (ER) | payer OTHER ==
[~2023-12-18] VITALS: Ht 167.6 cm; Wt 59.0 kg
[~2023-12-18 16:14] MED LIST changes: +ALBU90OI INH; +AMITRIPTYLINE100 M2 PO; -Amitriptyline150 MG PO; +CARVEDILOL6.25 MG PO; +CITALOPRAM HBR20 M9 PO; +DILT30 PO; +LACT PO; +LEVOFLOXACIN750 MG PO
[2023-12-18] MEDS ORDERED: Acetaminophen 500 MG Tab PO ONE ×2 (16:30→21:35)
[2023-12-18 16:44] LABS: BASOPHILS ABSOLUTE AUTO 0.03 K/mm3 (0.00-0.23); BASOPHILS PERCENT AUTO 0 % (0-2); EOSINOPHILS PERCENT AUTO 0 % (0-6); Hematocrit 42.2 % (33.0-51.0); Hemoglobin 13.8 g/dL (11.5-16.0); IMMATURE GRAN ABSOLUTE AUTO 0.37 K/mm3 (0.00-0.10); IMMATURE GRAN PERCENT AUTO 3 % (0-1); LYMPHOCYTES ABSOLUTE AUTO 1.45 K/mm3 (0.84-5.20); LYMPHOCYTES PERCENT AUTO 11 % (21-46); MONOCYTES ABSOLUTE AUTO 1.33 K/mm3 (0.16-1.47); MONOCYTES PERCENT AUTO 10 % (4-13); Mean Corpuscular HGB 29.7 pg (26.0-34.0); Mean Corpuscular HGB Conc 32.7 g/dL (31.5-36.5); Mean Corpuscular Volume 91 fL (80-100); Mean Platelet Volume 9.9 fL (9.1-12.4); NEUTROPHILS ABSOLUTE AUTO 10.68 K/mm3 (1.96-9.15); NEUTROPHILS PERCENT AUTO 77 % (41-73); Platelet Count 232 K/mm3 (150-400); RDW Coefficient Variation 18.2 % (11.7-14.2); RDW Standard Deviation 60.2 fL (35.1-46.3); Red Blood Cell Count 4.65 M/mm3 (3.80-5.20); White Blood Cell Count 13.86 K/mm3 (4.00-11.30)
[2023-12-18 17:12] LABS: Albumin, Blood 2.9 g/dL (3.4-5.0); Albumin/Globulin Ratio 0.9 (0.8-1.8); Bilirubin, Total 0.4 mg/dL (0.1-1.0); Bun/Creatinine Ratio 34.1 (12.0-20.0); Calcium, Blood 8.1 mg/dL (8.5-10.1); Creatinine, Blood 0.88 mg/dL (0.40-1.00); Globulin, Blood 3.1 g/dL (2.2-4.0)
[2023-12-18 21:06] LABS: Magnesium, Blood 2.2 mg/dL (1.6-2.4)
[2023-12-18 21:13] LABS: Source, Urine Clean Catch
[2023-12-18 21:34] LABS: Bilirubin, Urine Neg (Neg); Blood, Urine Neg (Neg); Glucose Qualitative, Urine Neg (Neg); Ketones, Urine Neg (Neg); Leukocyte Esterase, Urine Neg (Neg); Nitrite, Urine Neg (Neg); Protein, Urine 1+ (Neg); Specific Gravity, Urine 1.025 (1.003-1.022); Urobilinogen, Urine NORM (Normal)
[2023-12-18 21:38] LABS: Color, Urine Yellow (P-Yellow)
[2023-12-18 21:47] LABS: Appearance, Urine Hazy (Clear)
[2023-12-18 21:48] LABS: Amorphous Light (0-Heavy); Bacteria Not Seen /hpf; Calcium Oxalate Crystals Mod /hpf; Red Blood Cells, Urine Not Seen /hpf (0-2); Squamous Epithelial Cells Rare /hpf (Few); White Blood Cells, Urine 0-2 /hpf (0-5)
[2023-12-18 22:20] VITALS: BP 137/84
== END 2023-12-18 22:20 | disposition home or self-care (01) ==
LOC: ER 16:14
PROVIDERS: Emergency Medicine; Physician Assistant
DX: R30.0 Dysuria (principal); R53.1 Weakness; R63.8 Other symptoms and signs concerning food and fluid intake; I10 Essential (primary) hypertension; I48.91 Unspecified atrial fibrillation; Z79.01 Long term (current) use of anticoagulants; Z79.899 Other long term (current) drug therapy
CPT/HCPCS: 70450; 80053; 81001; 83735; 84484; 85025; 93005; 93010; 99284-25; A9270

== ENCOUNTER 2024-02-27 08:41 | Day surgery (SDC) | payer OTHER ==
--- NOTE | 2024-02-27 07:15 | NUR ---
02/27/24 [address] MARTINEZ, SEE ANESTHESIA RECORDS.
[~2024-02-27 08:41] MED LIST changes: +CARV6.25 PO; +Celexa20 MG PO; +Lactated Ringer's 1,000 ML IV SCH; +METO25ER PO
[2024-02-27 10:07] VITALS: BP 118/93
--- NOTE | 2024-02-27 10:23 | NUR ---
PATIENT'S PROCEUDRE CANCELLED PER DR. PISANO. DR PISANO AT BEDSIDE SPEAKING TO PATIENT ABOUT F/U PLAN. PATIENT AGREES TO TAKE HER HEART RATE CONTROLL MEDICATIONS WHEN SHE GETS HOME.
== END 2024-02-27 23:25 | disposition home or self-care (01) ==
LOC: ORSCMMR 08:41 → ORD 10:00 → ORSCMMR 23:25
DX: R13.14 Dysphagia, pharyngoesophageal phase (principal); Z53.9 Procedure and treatment not carried out, unspecified reason
CPT/HCPCS: J7120

== ENCOUNTER 2024-04-01 15:09 | Emergency (ER) | payer OTHER ==
[~2024-04-01] VITALS: Ht 167.6 cm; Wt 61.2 kg
[~2024-04-01 15:09] MED LIST changes: -Lactated Ringer's 1,000 ML IV SCH
[2024-04-01 16:21] LABS: BASOPHILS ABSOLUTE AUTO 0.07 K/mm3 (0.00-0.23); BASOPHILS PERCENT AUTO 1 % (0-2); EOSINOPHILS ABSOLUTE AUTO 0.33 K/mm3 (0.00-0.68); EOSINOPHILS PERCENT AUTO 4 % (0-6); Hematocrit 37.8 % (33.0-51.0); Hemoglobin 11.7 g/dL (11.5-16.0); IMMATURE GRAN ABSOLUTE AUTO 0.04 K/mm3 (0.00-0.10); IMMATURE GRAN PERCENT AUTO 1 % (0-1); LYMPHOCYTES ABSOLUTE AUTO 1.84 K/mm3 (0.84-5.20); LYMPHOCYTES PERCENT AUTO 22 % (21-46); MONOCYTES ABSOLUTE AUTO 0.93 K/mm3 (0.16-1.47); MONOCYTES PERCENT AUTO 11 % (4-13); Mean Corpuscular HGB 32.2 pg (26.0-34.0); Mean Corpuscular Volume 104 fL (80-100); Mean Platelet Volume 9.7 fL (9.1-12.4); NEUTROPHILS ABSOLUTE AUTO 5.35 K/mm3 (1.96-9.15); NEUTROPHILS PERCENT AUTO 62 % (41-73); Platelet Count 326 K/mm3 (150-400); RDW Coefficient Variation 12.9 % (11.7-14.2); RDW Standard Deviation 49.4 fL (35.1-46.3); Red Blood Cell Count 3.63 M/mm3 (3.80-5.20); White Blood Cell Count 8.56 K/mm3 (4.00-11.30)
[2024-04-01 16:44] LABS: Albumin, Blood 2.3 g/dL (3.4-5.0); Albumin/Globulin Ratio 0.5 (0.8-1.8); Bilirubin, Total 0.3 mg/dL (0.1-1.0); Bun/Creatinine Ratio 21.3 (12.0-20.0); Calcium, Blood 8.9 mg/dL (8.5-10.1); Creatinine, Blood 0.89 mg/dL (0.40-1.00); Globulin, Blood 4.6 g/dL (2.2-4.0); Potassium, Blood 4.2 mmol/L (3.5-5.5); Total Protein, Blood 6.9 g/dL (6.4-8.2)
[2024-04-01] MEDS ORDERED: OxyCODONE 5 mg/Acetamin 325 mg TABLET PO ONE (18:00)
[2024-04-01] MEDS ORDERED: CeFAZolin 1000MG in D5W 50 ML IV ONE (19:30)
[2024-04-01] MEDS ORDERED: CEPH500 PO (19:34)
[2024-04-01] MEDS ORDERED: OXYC5 PO (19:34)
[2024-04-01] MEDS ORDERED: CeFAZolin Sodium 1,000 MG in NS 50 ML IV ONE (19:40)
[2024-04-01 20:28] VITALS: BP 113/72
== END 2024-04-01 20:31 | disposition home or self-care (01) ==
LOC: ER 15:09
PROVIDERS: Physician Assistant
DX: L03.317 Cellulitis of buttock (principal); L02.31 Cutaneous abscess of buttock; Z79.899 Other long term (current) drug therapy
CPT/HCPCS: 72193; 80053; 83605; 85025; 87070; 87075; 87077; 87147; 87186; 87205; 93005; 93010; 96365-59; 99284-25; A9270; J0690; Q9967

== ENCOUNTER 2024-04-04 10:12 | Inpatient (IN) | payer OTHER ==
[~2024-04-04] VITALS: Ht 167.6 cm; Wt 67.5 kg
[~2024-04-04 10:12] MED LIST changes: +OXYC5 PO
[2024-04-04 11:19] LABS: BASOPHILS ABSOLUTE AUTO 0.07 K/mm3 (0.00-0.23); BASOPHILS PERCENT AUTO 1 % (0-2); EOSINOPHILS ABSOLUTE AUTO 0.23 K/mm3 (0.00-0.68); EOSINOPHILS PERCENT AUTO 4 % (0-6); Hematocrit 40.2 % (33.0-51.0); Hemoglobin 12.5 g/dL (11.5-16.0); IMMATURE GRAN ABSOLUTE AUTO 0.04 K/mm3 (0.00-0.10); IMMATURE GRAN PERCENT AUTO 1 % (0-1); LYMPHOCYTES ABSOLUTE AUTO 1.64 K/mm3 (0.84-5.20); LYMPHOCYTES PERCENT AUTO 25 % (21-46); MONOCYTES ABSOLUTE AUTO 0.68 K/mm3 (0.16-1.47); MONOCYTES PERCENT AUTO 10 % (4-13); Mean Corpuscular HGB 31.6 pg (26.0-34.0); Mean Corpuscular HGB Conc 31.1 g/dL (31.5-36.5); Mean Corpuscular Volume 102 fL (80-100); Mean Platelet Volume 9.8 fL (9.1-12.4); NEUTROPHILS ABSOLUTE AUTO 3.97 K/mm3 (1.96-9.15); NEUTROPHILS PERCENT AUTO 60 % (41-73); Platelet Count 328 K/mm3 (150-400); RDW Coefficient Variation 12.9 % (11.7-14.2); RDW Standard Deviation 48.2 fL (35.1-46.3); Red Blood Cell Count 3.96 M/mm3 (3.80-5.20); White Blood Cell Count 6.63 K/mm3 (4.00-11.30)
[2024-04-04 11:35] LABS: Albumin, Blood 2.6 g/dL (3.4-5.0); Albumin/Globulin Ratio 0.5 (0.8-1.8); Bilirubin, Total 0.3 mg/dL (0.1-1.0); Bun/Creatinine Ratio 14.5 (12.0-20.0); Calcium, Blood 9.5 mg/dL (8.5-10.1); Creatinine, Blood 0.76 mg/dL (0.40-1.00); Globulin, Blood 5.1 g/dL (2.2-4.0); Total Protein, Blood 7.7 g/dL (6.4-8.2)
[2024-04-04] MEDS ORDERED: CefTRIAXone Sodium 1,000 MG in NS 100 ML IV ONE (16:35)
[2024-04-04] MEDS ORDERED: Ondansetron HCl 2 MG / ML 2ML Vial IV PRN (17:15)
[2024-04-04] MEDS ORDERED: HYDROcodone 5-APAP 325 TAB PO PRN (17:15)
[2024-04-04] MEDS ORDERED: Acetaminophen 325 MG TABLET PO PRN (17:15)
[2024-04-04] MEDS ORDERED: FLU VACC TS2024-25(6MOS UP)/PF 45 MCG/0.5 ML SYRINGE IM SCH (17:15)
[2024-04-04] MEDS ORDERED: ALPRAZolam 0.25 MG Tab PO PRN (17:25)
[2024-04-04] MEDS ORDERED: TiZANidine HCl 4 MG Tab PO PRN (17:25)
[2024-04-04] MEDS ORDERED: DILT120 PO (19:42)
[2024-04-04 20:50] VITALS: BP 108/69
[2024-04-04] MEDS ORDERED: Docusate Sodium 100 MG Cap PO SCH (21:00)
[2024-04-04] MEDS ORDERED: Lactobacil 2-S.Thermo-Bifido 1 1 Cap PO SCH (21:00)
[2024-04-04] MEDS ORDERED: Amitriptyline HCl 50 MG Tab PO SCH (21:00)
[2024-04-04] MEDS ORDERED: Gabapentin 300 MG Cap PO SCH (21:00)
[2024-04-05] MEDS ORDERED: CeFAZolin Sodium 2,000 MG in NS 100 ML IV SCH
[2024-04-05 04:35] VITALS: BP 128/88
--- NOTE | 2024-04-05 06:05 | NUR ---
SHIFT SUMMARY PT ALERT AND ORIENTED TIMES 4. PT HERE FOR OBSERVATION AND PROCEDURE IN THE MORNING. PT HAD TROUBLE SLEEPING AND WAS SLIGHTLY ANXIOUS. PT WAS GIVEN XANAX AND APPEARED TO TOLERATE WELL. PT IS ABLE TO AMBULATE TO BED SIDE COMMODE WITH ASSIST. IV IN LEFT AC, FLUSHES WELL. PT HAD SOME COMPLAINTS IN EARLY AM ABOUT RIGHT SHOULDER PAIN CALL LIGHT WITHIN REACH, RAILS TIMES 2, BED IN LOW POSITION.
[2024-04-05 07:14] VITALS: BP 141/93
[2024-04-05 08:30] LABS: BASOPHILS ABSOLUTE AUTO 0.03 K/mm3 (0.00-0.23); BASOPHILS PERCENT AUTO 1 % (0-2); EOSINOPHILS ABSOLUTE AUTO 0.23 K/mm3 (0.00-0.68); EOSINOPHILS PERCENT AUTO 5 % (0-6); Hematocrit 34.8 % (33.0-51.0); Hemoglobin 11.2 g/dL (11.5-16.0); IMMATURE GRAN ABSOLUTE AUTO 0.03 K/mm3 (0.00-0.10); IMMATURE GRAN PERCENT AUTO 1 % (0-1); LYMPHOCYTES ABSOLUTE AUTO 1.43 K/mm3 (0.84-5.20); LYMPHOCYTES PERCENT AUTO 28 % (21-46); MONOCYTES ABSOLUTE AUTO 0.57 K/mm3 (0.16-1.47); MONOCYTES PERCENT AUTO 11 % (4-13); Mean Corpuscular HGB 31.8 pg (26.0-34.0); Mean Corpuscular HGB Conc 32.2 g/dL (31.5-36.5); Mean Corpuscular Volume 99 fL (80-100); Mean Platelet Volume 9.5 fL (9.1-12.4); NEUTROPHILS ABSOLUTE AUTO 2.79 K/mm3 (1.96-9.15); NEUTROPHILS PERCENT AUTO 55 % (41-73); Platelet Count 244 K/mm3 (150-400); RDW Coefficient Variation 12.7 % (11.7-14.2); RDW Standard Deviation 46.4 fL (35.1-46.3); Red Blood Cell Count 3.52 M/mm3 (3.80-5.20); White Blood Cell Count 5.08 K/mm3 (4.00-11.30)
[2024-04-05 08:50] VITALS: BP 142/85
[2024-04-05 08:58] LABS: Albumin, Blood 2.2 g/dL (3.4-5.0); Albumin/Globulin Ratio 0.5 (0.8-1.8); Bilirubin, Total 0.2 mg/dL (0.1-1.0); Bun/Creatinine Ratio 20.6 (12.0-20.0); Calcium, Blood 9.3 mg/dL (8.5-10.1); Creatinine, Blood 0.58 mg/dL (0.40-1.00); Globulin, Blood 4.2 g/dL (2.2-4.0); Magnesium, Blood 1.7 mg/dL (1.6-2.4); Potassium, Blood 3.8 mmol/L (3.5-5.5); Total Protein, Blood 6.4 g/dL (6.4-8.2)
[2024-04-05] MEDS ORDERED: Potassium Chloride 10 Meq Tablet SA PO SCH (09:00)
[2024-04-05] MEDS ORDERED: dilTIAZem HCL 120 MG CAP.CD PO SCH (09:00)
[2024-04-05] MEDS ORDERED: Citalopram Hydrobromide 20 MG Tab PO SCH (09:00)
[2024-04-05] MEDS ORDERED: Metoprolol Succinate 25 MG TABCR PO SCH (09:00)
[2024-04-05] MEDS ORDERED: Furosemide 20 MG Tab PO SCH (09:00)
[2024-04-05] MEDS ORDERED: Lactated Ringer's 1,000 ML IV SCH ×2 (13:35)
--- NOTE | 2024-04-05 14:43 | NUR ---
VOICEMAIL LEFT ON DR. BASSETT CELL PHONE REGARDING THE ORTHO CONSULT WITH THIS PATIENT.
[2024-04-05 15:16] VITALS: BP 143/98
[2024-04-05] MEDS ORDERED: dilTIAZem HCL 120 MG CAP.CD PO ONE (15:35)
--- NOTE | 2024-04-05 17:26 | NUR ---
Pt. is awake in bed and welcomes my visit. Pt. is pleasant. Facilitated a life review and were able to make some common connections, as this manager area is familiar with the Pts. daughter from the community. Pt. is unsettled by the delay of being treated, and verbalized that she has been NPO for a long time. Listen with empahty and acalming presence and seek to normalize the Pt. expereince. Prayed with Pt. Pt. verbalized gratitude for the spiritual care visit.
--- NOTE | 2024-04-05 18:33 | NUR ---
PATIENT IS ALERT AND ORIENTED AND COOPERATIVE WITH CARE. DR. FIELDS SAW THE PATIENT THIS EVENING WHILE FAMILY WAS AT THE BEDSIDE. THE PLAN IS FOR I&D TOMORROW, NOT SURE OF A TIME AT THIS POINT. PATIENT NEEDS TO BE NPO AT 0000. SHE IS EATING DINNER AT THIS TIME. WOUND IS DRESSED WITH A MEPILEX, DR. FIELDS PULLED OUT THE PACKING. UP TO THE BATHROOM SBA FWW. CONCERNS OF TACHYCARDIA THIS AFTERNOON, WHEN RN WENT TO MEDICATED THE PATIENT, HER HR WAS [address] GAMINO DC'D THE NEW ORDERS. WILL CONTINUE TO MONITOR
[2024-04-05 20:02] VITALS: BP 90/73
[2024-04-06] VITALS (17 sets, daily range): BP systolic 87–136; BP diastolic 67–98
[2024-04-06 06:23] LABS: BASOPHILS ABSOLUTE AUTO 0.04 K/mm3 (0.00-0.23); BASOPHILS PERCENT AUTO 1 % (0-2); EOSINOPHILS ABSOLUTE AUTO 0.24 K/mm3 (0.00-0.68); EOSINOPHILS PERCENT AUTO 4 % (0-6); Hematocrit 34.7 % (33.0-51.0); Hemoglobin 10.9 g/dL (11.5-16.0); IMMATURE GRAN ABSOLUTE AUTO 0.03 K/mm3 (0.00-0.10); IMMATURE GRAN PERCENT AUTO 1 % (0-1); LYMPHOCYTES ABSOLUTE AUTO 1.71 K/mm3 (0.84-5.20); LYMPHOCYTES PERCENT AUTO 30 % (21-46); MONOCYTES ABSOLUTE AUTO 0.79 K/mm3 (0.16-1.47); MONOCYTES PERCENT AUTO 14 % (4-13); Mean Corpuscular HGB 31.4 pg (26.0-34.0); Mean Corpuscular HGB Conc 31.4 g/dL (31.5-36.5); Mean Corpuscular Volume 100 fL (80-100); Mean Platelet Volume 9.7 fL (9.1-12.4); NEUTROPHILS ABSOLUTE AUTO 2.81 K/mm3 (1.96-9.15); NEUTROPHILS PERCENT AUTO 50 % (41-73); Platelet Count 255 K/mm3 (150-400); RDW Standard Deviation 47.5 fL (35.1-46.3); Red Blood Cell Count 3.47 M/mm3 (3.80-5.20); White Blood Cell Count 5.62 K/mm3 (4.00-11.30)
--- NOTE | 2024-04-06 06:48 | NUR ---
SHIFT SUMMARY PT ALERT ORIENTED X 4 ABLE TO VERBALIZE NEEDS CALLS APPROPRIATELY. GETS UP TO BATHROOM WITH SBA AND WALKER. C/O PAIN TO RT HIP MEDICATED WITH NORCO WITH GOOD PAIN RELIEF. SHES BEEN NPO SINCE MIDNIGHT FOR HER I&D TO BE DONE TODAY. WE NEED TO CALL SURGERY THIS AM TO GET A TIME FOR HER SURGERY. VSS ON RA SATTING AT 98%. REMAINS ON LR AT 50. DR. FIELDS WILL DO HER SURGERY TODAY. HER ELIQUIS HAS BEEN ON HOLD FOR HER SURGERY. REMAINS ON ANCEF Q8HR ORDERED RESTING IN BED AT THIS TIME WITH CALL LIGHT IN REACH
[2024-04-06 06:54] LABS: Albumin, Blood 2.1 g/dL (3.4-5.0); Albumin/Globulin Ratio 0.5 (0.8-1.8); Bilirubin, Total 0.4 mg/dL (0.1-1.0); Bun/Creatinine Ratio 17.9 (12.0-20.0); Calcium, Blood 8.9 mg/dL (8.5-10.1); Creatinine, Blood 0.67 mg/dL (0.40-1.00); Globulin, Blood 3.9 g/dL (2.2-4.0); Magnesium, Blood 1.5 mg/dL (1.6-2.4); Phosphorus, Blood 3.4 mg/dL (2.5-4.9); Potassium, Blood 3.8 mmol/L (3.5-5.5)
[2024-04-06] MEDS ORDERED: dilTIAZem HCL 240 MG CAP.CD PO SCH (09:00)
[2024-04-06] MEDS ORDERED: dilTIAZem HCL 120 MG CAP.CD PO SCH (09:00)
[2024-04-06] MEDS ORDERED: Metoprolol Tartrate 1 MG/ML 5 ML VIAL IV ONE ×2 (10:00→16:35)
--- NOTE | 2024-04-06 13:12 | NUR ---
up to commode monitoring engineer reports hr in 160's. pt denies any change in how she is feeling
--- NOTE | 2024-04-06 13:15 | NUR ---
PT HR RETURNED TO 130 AFTER BACK IN BED FOR 2 MINUTES
[2024-04-06] MEDS ORDERED: FentaNYL Citrate 50 MCG/ML 2 ML Injection ONE ×2 (14:17→18:48)
[2024-04-06] MEDS ORDERED: propofoL 20 ML IV ONE (14:17)
--- NOTE | 2024-04-06 16:46 | NUR ---
PT PREPARING FOR SURGERY, THIS RN INFORMED THAT PT HEART RHTYHM IS CONSISTANTLY 120-160 AFIB. THIS RN CALLED MD TO INFORM. MD TELEPHONE ORDER OF 5MG LOPRESSOR TO BE GIVEN.
[2024-04-06] MEDS ORDERED: Lactated Ringer's 1,000 ML IV ONE (17:12)
--- NOTE | 2024-04-06 17:15 | NUR ---
SHIFT SUMMARY PT AOX4, COOPERATIVE, ABLE TO MAKE NEEDS KNOWN. AMBULATING TO BATHROOM APPROPRIATELY. TOLERATING IV AND PO MEDS. HEADED DOWN TO I&D AT APPROXIMATELY 1710. HAS BEEN NPO SINCE MIDNIGHT. RUNNING LR AT 50ML/HR. ON TELE. BED IN LOWEST POSITION, CALL LIGHT WITHIN REACH.
[2024-04-06] MEDS ORDERED: CeFAZolin Sodium 2,000 MG in NS 100 ML IV SCH (17:55)
[2024-04-06] MEDS ORDERED: Phenylephrine HCl 100 MCG/ML-NS 10MLSYR (1MG/10ML) ONE (18:05)
[2024-04-06] MEDS ORDERED: CeFAZolin Sodium 1000 mg Vial ONE (18:16)
--- NOTE | 2024-04-06 18:28 | NUR ---
04/06/241827 Apryl Castillo ANESTHESIA PROVIDER GAVE 1G ANCEF AT 1820 INTRAOPERATIVELY.SEE ANESTHESIA RECORD.
[2024-04-06] MEDS ORDERED: FentaNYL Citrate 50 MCG/ML 2 ML Injection IV PRN (20:25)
[2024-04-06] MEDS ORDERED: Ondansetron HCl 2 MG / ML 2ML Vial IV PRN (20:25)
[2024-04-06] MEDS ORDERED: NS 500 ML IV SCH (20:30)
--- NOTE | 2024-04-06 20:32 | NUR ---
PT RETURNED BACK FROM OR AT 1952. SHE WAS ALERT ORIENTED X 4 ON RA SATTING AT 98%. DID A SKIN CHECK AND SHE HAS THE INCISION TO HER RT HIP THAT IS TAPED WITH PRESSURE TAPE AND A HEMOVAC INTACT DRAINING SEROUS DRAINAGE. SHE IS C/O NAUSEA AND INCREASED PAIN TO AREA. ALSO HER BP IS 95/70 AND HR IS ANYWHERE FROM 110-128. CALLED DR. JAQUEZ AND INFORMED HIM OF THE PAIN NAUSEA AND INCREASED HEART RATE AND HE GAVE ORDERS FOR ZOFRAN, FENTANYL AND A 500ML NS BOLOS. SHES ON POSTOP VS AND RESTING IN BED AT THIS TIME WITH CALL LIGHT IN REACH
[2024-04-07 04:05] VITALS: BP 107/81
--- NOTE | 2024-04-07 04:58 | NUR ---
SHIFT SUMMARY PT ALERT ORIENTED X 4 ABLE TO VERBALIZE NEEDS CALLS APPROPRIATELY GETS UP TO COMMODE WITH SBA. REMAINS ON TELEMETRY AT AFIB AT 110. SHE WAS C/O LT SHOULDER PAIN AT BEGINNING OF SHIFT WHEN SHE WOULD LIFT HER ARM. I MEDICATED HER WITH A ZANAFLEX AND NORCO AND THIS HELPED TO CONTROL HER PAIN. PRESSURE DRESSING IS INTACT TO HER RT HIP SURGICAL SITE. NO DRAINAGE SEEN ON THE DRESSING. REMAINS WITH A HEMOVAC AND SHE HAD 40ML OF SEROUS DRAINAGE FROM IT. I MEDICATED HER LAST NIGHT WITH FENTANYL WHEN SHE FIRST ARRIVED FROM THE OR AND HER O2 WENT DOWN TO THE 80'S SO I PUT HER ON 2 L OF O2 VIA NC SHES NOW AWAKE AND ALERT AND ON RA AT 99%. HER HR LAST NIGHT WENT UP TO THE 120'S AND MD ORDERED A ONE TIME 500NS BOLUS AND SINCE HER HR HAS BEEN AROUND 105. REMAINS ON ANCEF Q8HR. REMAINS ON LR AT 50. RESTING IN BED AT THIS TIME WITH CALL LIGHT IN REACH
[2024-04-07 05:30] LABS: BASOPHILS ABSOLUTE AUTO 0.06 K/mm3 (0.00-0.23); BASOPHILS PERCENT AUTO 1 % (0-2); EOSINOPHILS ABSOLUTE AUTO 0.23 K/mm3 (0.00-0.68); EOSINOPHILS PERCENT AUTO 2 % (0-6); Hematocrit 31.9 % (33.0-51.0); IMMATURE GRAN ABSOLUTE AUTO 0.04 K/mm3 (0.00-0.10); IMMATURE GRAN PERCENT AUTO 0 % (0-1); LYMPHOCYTES ABSOLUTE AUTO 1.77 K/mm3 (0.84-5.20); LYMPHOCYTES PERCENT AUTO 19 % (21-46); MONOCYTES PERCENT AUTO 9 % (4-13); Mean Corpuscular HGB 31.9 pg (26.0-34.0); Mean Corpuscular HGB Conc 31.3 g/dL (31.5-36.5); Mean Corpuscular Volume 102 fL (80-100); Mean Platelet Volume 9.7 fL (9.1-12.4); NEUTROPHILS ABSOLUTE AUTO 6.57 K/mm3 (1.96-9.15); NEUTROPHILS PERCENT AUTO 69 % (41-73); Platelet Count 234 K/mm3 (150-400); RDW Coefficient Variation 13.1 % (11.7-14.2); RDW Standard Deviation 48.9 fL (35.1-46.3); Red Blood Cell Count 3.13 M/mm3 (3.80-5.20); White Blood Cell Count 9.57 K/mm3 (4.00-11.30)
[2024-04-07 06:28] LABS: Albumin/Globulin Ratio 0.5 (0.8-1.8); Bilirubin, Total 0.2 mg/dL (0.1-1.0); Bun/Creatinine Ratio 14.7 (12.0-20.0); Calcium, Blood 8.8 mg/dL (8.5-10.1); Creatinine, Blood 0.61 mg/dL (0.40-1.00); Globulin, Blood 3.7 g/dL (2.2-4.0); Magnesium, Blood 1.6 mg/dL (1.6-2.4); Potassium, Blood 4.2 mmol/L (3.5-5.5); Total Protein, Blood 5.7 g/dL (6.4-8.2)
[2024-04-07 07:53] VITALS: BP 104/78
[2024-04-07 12:50] VITALS: BP 96/68
--- NOTE | 2024-04-07 12:56 | NUR ---
CALLED MD AND INFORMED ABOUT VITALS HR 121 BP 96/68. MD TO PLACE ORDERS FOR TOPROL AND NS BOLUS.
[2024-04-07] MEDS ORDERED: NS 500 ML IV SCH ×2 (13:00→16:10)
[2024-04-07] MEDS ORDERED: NS 1,000 ML IV SCH (13:30)
[2024-04-07 14:33] VITALS: BP 78/59
--- NOTE | 2024-04-07 14:49 | NUR ---
PT EXHIBITED LOW BP, NOTIFIED, RN INSTRUCTED TO INCREASE FLUIDS FROM 500CC/HR TO 100CC/HR.
[2024-04-07 15:42] VITALS: BP 80/57
[2024-04-07] MEDS ORDERED: NS 1,000 ML BAG IR SCH (16:10)
--- NOTE | 2024-04-07 17:00 | NUR ---
TRANSFER TO PCU: Report reiceved from [facility] RN. Patient was transferred from medical floor for hypotension and A- Fib with RVR. Patient is alert and oriented x3. Reports 6/10 pain in her right hip, she is medicated with [place]. She is in A-Fib in the 90s-110. Blood pressure is in the 90s systolic with a MAP in the 70s, the second 500cc bolus is almost done infusing. LS CTA, biox is high 90s on RA. BT+. Patient has bulky dressing to right hip with pressure tape, CDI with Hemovac drain-draining serrous fluid. PP thready, cap refill 4 seconds. Patient denies other needs at this time, Call light in reach.
--- NOTE | 2024-04-07 17:07 | NUR ---
SHIFT SUMMARY/TRANSFER TO PCU PT AOX4, COOPERATIVE, ABLE TO MAKE NEEDS KNOWN. PT TRANSFERRED TO PCU 12 FOR HYPOTENSION. GAVE REPORT TO FABIAN CASTILLO. ALL BELONGINGS TRANFERRED WITH PT.
[2024-04-07 20:41] VITALS: BP 118/77
[2024-04-07] MEDS ORDERED: Metoprolol Succinate 25 MG TABCR PO SCH (21:00)
[2024-04-08] VITALS: BP 108/80
[2024-04-08 03:43] VITALS: BP 102/79
[2024-04-08 04:04] LABS: BASOPHILS ABSOLUTE AUTO 0.04 K/mm3 (0.00-0.23); BASOPHILS PERCENT AUTO 1 % (0-2); EOSINOPHILS ABSOLUTE AUTO 0.15 K/mm3 (0.00-0.68); EOSINOPHILS PERCENT AUTO 2 % (0-6); Hematocrit 32.8 % (33.0-51.0); IMMATURE GRAN ABSOLUTE AUTO 0.03 K/mm3 (0.00-0.10); IMMATURE GRAN PERCENT AUTO 0 % (0-1); LYMPHOCYTES ABSOLUTE AUTO 1.44 K/mm3 (0.84-5.20); LYMPHOCYTES PERCENT AUTO 21 % (21-46); MONOCYTES ABSOLUTE AUTO 0.75 K/mm3 (0.16-1.47); MONOCYTES PERCENT AUTO 11 % (4-13); Mean Corpuscular HGB 31.3 pg (26.0-34.0); Mean Corpuscular HGB Conc 30.5 g/dL (31.5-36.5); Mean Corpuscular Volume 103 fL (80-100); NEUTROPHILS ABSOLUTE AUTO 4.32 K/mm3 (1.96-9.15); NEUTROPHILS PERCENT AUTO 64 % (41-73); Platelet Count 202 K/mm3 (150-400); RDW Coefficient Variation 12.9 % (11.7-14.2); RDW Standard Deviation 48.1 fL (35.1-46.3); White Blood Cell Count 6.73 K/mm3 (4.00-11.30)
[2024-04-08 04:58] LABS: Albumin, Blood 1.9 g/dL (3.4-5.0); Albumin/Globulin Ratio 0.5 (0.8-1.8); Bilirubin, Total 0.2 mg/dL (0.1-1.0); Bun/Creatinine Ratio 17.8 (12.0-20.0); Calcium, Blood 8.6 mg/dL (8.5-10.1); Creatinine, Blood 0.73 mg/dL (0.40-1.00); Globulin, Blood 3.9 g/dL (2.2-4.0); Potassium, Blood 4.2 mmol/L (3.5-5.5); Total Protein, Blood 5.8 g/dL (6.4-8.2)
--- NOTE | 2024-04-08 06:40 | NUR ---
SHIFT SUMMARY ASSUMED CARE OF PT AT 1900. PT A&O4, COOPERATIVE IN CARE AND ABLE TO EXPRESS OWN NEEDS. PT DENIES SOB AND CP/PRESSURE. PT REPORTED ONLY SMALL AMOUNTS OF PAIN OVERNIGHT AND DID NOT REQUEST ANY PRN ANALGESICS. NO NAUSEA REPORTED EITHER. BP WNL BUT HR WOULD RISE TO THE 120S, NONSUSTAINING OVERNIGHT. PLACEED PT ON 1L NC WHILE SLEEPING D/T O2 SAT DROPPING TO 70S. DRESSING TO THE R HIP ALONG W HEMOVAC IN PLACE, C/D/I. SCDS PLACED TOLERATED. PT'S BED IN LOWEST POSITION AND CALL LIGHT WITHIN REACH.
[2024-04-08 07:13] VITALS: BP 127/90
[2024-04-08] MEDS ORDERED: Metoprolol Succinate 25 MG TABCR PO SCH (09:00)
--- NOTE | 2024-04-08 09:36 | NUR ---
am note this rn assumed care at 0700. vital signs stable. spo2 >90% on room air. this rn took the 1l nc off while patient sleeping since spo2 was >95%. patient tolerating well patient is alert and oriented x4. neuro is intact. perrla. patient is able to make needs known and use call light. patient reports pain in right leg rated at 6 and receied tyelnol and patient was sleeping upon reassessment, and when patient was awake next this rn asked how her pain level is and she rated it at 2. denies chest pain/pressure or shortness of breath. see shift assessment for further detials.
[2024-04-08 11:40] VITALS: BP 120/89
--- NOTE | 2024-04-08 12:36 | NUR ---
update md bonds in to see patient around 1130.
--- NOTE | 2024-04-08 14:45 | NUR ---
update md blas by to see patient. hemovac removed. wound care orders for right hip, see order section. wound care done by this rn. patient working with physical therapy.
[2024-04-08 15:26] VITALS: BP 107/80
--- NOTE | 2024-04-08 17:27 | NUR ---
shift summary patient vitals remain stable. neuro remains unchanged. no acute changes. see previous notes.
[2024-04-08 20:49] VITALS: BP 117/74
[2024-04-09] VITALS (7 sets, daily range): BP systolic 105–145; BP diastolic 68–95
--- NOTE | 2024-04-09 06:03 | NUR ---
SHIFT SUMMARY ASSUMED CARE OF PT AT 1900. PT A&O4, COOPERATIVE IN CARE AND IS ABLE TO MAKE NEEDS KNOWN. PT DENIES SOB & CP/PRESSURE. VSS AND PT NEEDED TO GET ON 1L NC OVERNIGHT WHILE SLEEPING D/T DESATURATION; PT ON RA WHILE AWAKE. ONLY PAIN PT REPORTED WAS A GÓMEZ; PRN TYLENOL GIVEN. BED IN LOWEST POSITION AND CALL LIGHT WITHIN REACH.
[2024-04-09 06:30] LABS: BASOPHILS ABSOLUTE AUTO 0.06 K/mm3 (0.00-0.23); BASOPHILS PERCENT AUTO 1 % (0-2); EOSINOPHILS ABSOLUTE AUTO 0.19 K/mm3 (0.00-0.68); EOSINOPHILS PERCENT AUTO 3 % (0-6); Hematocrit 33.7 % (33.0-51.0); Hemoglobin 10.5 g/dL (11.5-16.0); IMMATURE GRAN ABSOLUTE AUTO 0.04 K/mm3 (0.00-0.10); IMMATURE GRAN PERCENT AUTO 1 % (0-1); LYMPHOCYTES PERCENT AUTO 25 % (21-46); MONOCYTES ABSOLUTE AUTO 0.89 K/mm3 (0.16-1.47); MONOCYTES PERCENT AUTO 13 % (4-13); Mean Corpuscular HGB 32.1 pg (26.0-34.0); Mean Corpuscular HGB Conc 31.2 g/dL (31.5-36.5); Mean Corpuscular Volume 103 fL (80-100); Mean Platelet Volume 9.9 fL (9.1-12.4); NEUTROPHILS ABSOLUTE AUTO 4.11 K/mm3 (1.96-9.15); NEUTROPHILS PERCENT AUTO 58 % (41-73); Platelet Count 219 K/mm3 (150-400); RDW Coefficient Variation 13.2 % (11.7-14.2); RDW Standard Deviation 49.3 fL (35.1-46.3); Red Blood Cell Count 3.27 M/mm3 (3.80-5.20); White Blood Cell Count 7.09 K/mm3 (4.00-11.30)
[2024-04-09 06:55] LABS: Albumin, Blood 1.9 g/dL (3.4-5.0); Albumin/Globulin Ratio 0.5 (0.8-1.8); Bilirubin, Total 0.2 mg/dL (0.1-1.0); Bun/Creatinine Ratio 18.3 (12.0-20.0); Calcium, Blood 9.3 mg/dL (8.5-10.1); Creatinine, Blood 0.66 mg/dL (0.40-1.00); Globulin, Blood 4.2 g/dL (2.2-4.0); Potassium, Blood 4.4 mmol/L (3.5-5.5); Total Protein, Blood 6.1 g/dL (6.4-8.2)
[2024-04-09] MEDS ORDERED: Arginine/Glutamine/Calcium Hmb 1 Packet PO SCH (09:00)
--- NOTE | 2024-04-09 10:14 | NUR ---
am note this rn assumed care at 0700. vital signs stable. tele afib 110s-120s. patient is alert and oriented x.4. neuro is intact. patient reports "not feeling well today" when this rn asked the patient to further explain, patient stated "i feel tired and didn't sleep well last night". this rn informed the patient that she can go back to sleep and will limit distruption so she can sleep. patient denied pain, chest pain/pressure or shortness of breath. right hip dressing intact and clean. see shift assessment for further detials.
[2024-04-09] MEDS ORDERED: Metoprolol Succinate 25 MG TABCR PO ONE (10:30)
--- NOTE | 2024-04-09 10:45 | NUR ---
MD DEQUAN Sheikh in room with patient and discussed with patient on increase metoprolol dose to 25mg twice a day for increase rate control and to be discharged home tomorrow. Also discussed was getting out of bed and increase movement.
--- NOTE | 2024-04-09 10:50 | NUR ---
UDATE ON MEDS this rn spoke with md ziegler about patient lasix being held and patient continuing to received potassium and patient morning potassium level. the plan is hold potassium as well until lasix is restarted. potassium has been discontinued at this time
--- NOTE | 2024-04-09 11:18 | NUR ---
update-heart rate patient up in room and heart rate touched 155, patient received additional dose of metoprolol. heart rate currently in the 130s
--- NOTE | 2024-04-09 15:01 | NUR ---
Pt. is awake and welcomes this kiln furniture caster's visit. Rapport is re-established as this kiln furniture caster had seen this Pt. on Monday before her surgery. Pt. is very pleasant, but verbalized a strong desire not to go to a rehab facility, but to be bale to go home, Listen with empathy and interest. Prayed with Pt. pt. verbalized gratitude for the spiritual care visit. Note: Pt would love to have a visit from our therapy dog. Talked with Pts. nurse about it.
--- NOTE | 2024-04-09 17:40 | NUR ---
shift summary vitals remain stable. tele afib 110s-120s. patient heart rate increases with activity. this afternoon the highest the heart rate touched was 140 with activity, such as getting out of bed to use the comode or getting in the chair. patient son mir in and updated on plan of care. no acute changes throughout this shift.
--- NOTE | 2024-04-09 18:21 | NUR ---
WOUND CARE wound care done this shift
[2024-04-09] MEDS ORDERED: Nystatin 100,000 Unit/ML Susp 5 ML UDC MT SCH (21:00)
[2024-04-09] MEDS ORDERED: Metoprolol Succinate 25 MG TABCR PO SCH (21:00)
[2024-04-09] MEDS ORDERED: Metoprolol Tartrate 1 MG/ML 5 ML VIAL IV PRN (23:10)
[2024-04-10] VITALS (11 sets, daily range): BP systolic 105–127; BP diastolic 67–103
--- NOTE | 2024-04-10 05:44 | NUR ---
SHIFT SUMMARY ASSUMED CARE OF PT AT 1900. PT A&O4, COOPERATIVE IN CARE AND ABLE TO MAKE NEEDS KNOWN. PT PLACED OFF PUREWICK TO ENCOURAGE AMBULATION TO THE BSC. D/T PT'S URGENCY AND FREQUENCY; PT DID NOT GET MUCH SLEEP OVERNIGHT DURING SLEEP STUDY. THROUGHOUT THE SHIFT; PT'S HR DID RISE WHILE IN BED UP TO 160, CALL RESIDENT, STATED HE WOULD CALL BACK. 1 HR PASSED CALLED RESIDENT AGAIN, RESIDENT STATED HE WOULD COME TO UNIT, SOME TIME PASSED AND CALLED MD AGAIN. HOSPITALIST ARRIVED TO UNIT. PRN ORDERS GIVEN, MEDS GIVEN TO PT X2, PT STILL AFIB RVR 120S-140S. NOTIFIED RESIDENT, NEW ORDERS PLACED TO GIVE AT 0600. STILL PENDING PHARM AUTH. BED IN LOWEST POSITION AND CALL LIGHT WITHIN REACH.
[2024-04-10] MEDS ORDERED: Diltiazem HCl 180 MG Cap.CD PO SCH (06:00)
[2024-04-10 06:10] LABS: BASOPHILS ABSOLUTE AUTO 0.03 K/mm3 (0.00-0.23); BASOPHILS PERCENT AUTO 1 % (0-2); EOSINOPHILS ABSOLUTE AUTO 0.11 K/mm3 (0.00-0.68); EOSINOPHILS PERCENT AUTO 2 % (0-6); Hematocrit 33.8 % (33.0-51.0); Hemoglobin 10.7 g/dL (11.5-16.0); IMMATURE GRAN ABSOLUTE AUTO 0.04 K/mm3 (0.00-0.10); IMMATURE GRAN PERCENT AUTO 1 % (0-1); LYMPHOCYTES ABSOLUTE AUTO 1.06 K/mm3 (0.84-5.20); LYMPHOCYTES PERCENT AUTO 16 % (21-46); MONOCYTES ABSOLUTE AUTO 0.59 K/mm3 (0.16-1.47); MONOCYTES PERCENT AUTO 9 % (4-13); Mean Corpuscular HGB 32.1 pg (26.0-34.0); Mean Corpuscular HGB Conc 31.7 g/dL (31.5-36.5); Mean Corpuscular Volume 102 fL (80-100); Mean Platelet Volume 10.2 fL (9.1-12.4); NEUTROPHILS ABSOLUTE AUTO 4.77 K/mm3 (1.96-9.15); NEUTROPHILS PERCENT AUTO 72 % (41-73); Platelet Count 221 K/mm3 (150-400); RDW Coefficient Variation 13.2 % (11.7-14.2); RDW Standard Deviation 49.5 fL (35.1-46.3); Red Blood Cell Count 3.33 M/mm3 (3.80-5.20)
[2024-04-10 06:37] LABS: Alanine Aminotransfer (ALT/SGP <6 U/L (12-78); Albumin/Globulin Ratio 0.5 (0.8-1.8); Alk Phos 120 U/L (50-136); Anion Gap 7 mmol/L (3-11); Aspartate Aminotrans (AST/SGOT 24 U/L (12-37); Bilirubin, Total 0.2 mg/dL (0.1-1.0); Blood Urea Nitrogen 19 mg/dL (8-24); Bun/Creatinine Ratio 29.9 (12.0-20.0); CO2, Blood 29 mmol/L (21-32); Calcium, Blood 9.5 mg/dL (8.5-10.1); Chloride, Blood 104 mmol/L (98-108); Creatinine, Blood 0.64 mg/dL (0.40-1.00); Globulin, Blood 4.4 g/dL (2.2-4.0); Glomerular Filtration Rate 96 (60-); Glucose, Blood 104 mg/dL (70-99); Potassium, Blood 4.4 mmol/L (3.5-5.5); Sodium, Blood 136 mmol/L (136-145); Total Protein, Blood 6.4 g/dL (6.4-8.2)
--- NOTE | 2024-04-10 08:57 | NUR ---
START OF SHIFT THIS RN ASSUMED CARE AT APPROXIMATELY 0700. PT RESTING COMFORTABLY IN BED. HR 120S-150S WITH BP 110'S/80'S. PT ON RA WITH NO COMPLAINTS OF PAIN. PT REPORTS NOT FEELING WELL THIS MORNING. WILL CONTINUE WITH THE PLAN OF CARE.
[2024-04-10] MEDS ORDERED: dilTIAZem HCL 60 MG CAP.SR PO ONE (11:00)
[2024-04-10] MEDS ORDERED: Polyethylene Glycol 3350 17 gm PO PRN (11:32)
--- NOTE | 2024-04-10 17:52 | NUR ---
SHIFT SUMMARY PT RESTING IN BED. PT HAD A T MAX 100.9, GAVE TWO TYLENOLS AND NEXT TEMP CAME DOWN TO 98.7. PT REMAINS IN AFIB TO AFIB RVR WHICH IS TREATED WITH MEDS ON EMAR. BP CONSTANT WITH SYS IN 100-110S. NO OTHER ACUTE EVENTS OVER NIGHT. WILL CONTINUE WITH THE PLAN OF CARE.
[2024-04-10] MEDS ORDERED: Benzonatate 100 MG Cap PO PRN (20:50)
[2024-04-10] MEDS ORDERED: Apixaban 5 MG Tab PO SCH (21:00)
[2024-04-11] VITALS (13 sets, daily range): BP systolic 89–131; BP diastolic 58–96
[2024-04-11 04:13] LABS: BASOPHILS ABSOLUTE AUTO 0.01 K/mm3 (0.00-0.23); BASOPHILS PERCENT AUTO 0 % (0-2); EOSINOPHILS ABSOLUTE AUTO 0.01 K/mm3 (0.00-0.68); EOSINOPHILS PERCENT AUTO 0 % (0-6); Hematocrit 31.8 % (33.0-51.0); Hemoglobin 10.4 g/dL (11.5-16.0); IMMATURE GRAN ABSOLUTE AUTO 0.04 K/mm3 (0.00-0.10); IMMATURE GRAN PERCENT AUTO 1 % (0-1); LYMPHOCYTES ABSOLUTE AUTO 0.91 K/mm3 (0.84-5.20); LYMPHOCYTES PERCENT AUTO 13 % (21-46); MONOCYTES ABSOLUTE AUTO 0.73 K/mm3 (0.16-1.47); MONOCYTES PERCENT AUTO 10 % (4-13); Mean Corpuscular HGB 32.1 pg (26.0-34.0); Mean Corpuscular HGB Conc 32.7 g/dL (31.5-36.5); Mean Corpuscular Volume 98 fL (80-100); Mean Platelet Volume 10.2 fL (9.1-12.4); NEUTROPHILS ABSOLUTE AUTO 5.44 K/mm3 (1.96-9.15); NEUTROPHILS PERCENT AUTO 76 % (41-73); Platelet Count 182 K/mm3 (150-400); RDW Coefficient Variation 13.5 % (11.7-14.2); RDW Standard Deviation 49.1 fL (35.1-46.3); Red Blood Cell Count 3.24 M/mm3 (3.80-5.20); White Blood Cell Count 7.14 K/mm3 (4.00-11.30)
--- NOTE | 2024-04-11 05:46 | NUR ---
SHIFT SUMMARY ASSUMED CARE OF PT AT 1900. PT A&O4 COOPERATIVE IN CARE AND ABLE TO EXPRESS NEEDS. PT'S FAMILY AT BEDSIDE WITH QUESTIONS ABOUT A COUGH AND FEVER THAT HAS DEVELOPED. NOTIFIED RESIDENT OF CONCERNS; ORDERS GIVEN. LAB AND COUGH SUPPRESSANT GIVEN. LATER IN SHIFT GOT MORE ORDERS FOR RESPIRATORY PANEL WHEN FEVER REDEVELOPED AFTER TYENOL GIVEN. DRESSING CHANGE DONE; WOUND CLEAN, DRY WITH NO EVIDENCE OF INFECTION. PT NEEDED SUPPLEMENTAL OXYGEN OVERNIGHT WHILE SLEEPING. HR ALVAREZ AGAIN OVERNIGHT TO 140S; PRN METOPROLOL GIVEN. WILL CONTINUE PLAN OF CARE.
[2024-04-11 06:41] LABS: Albumin, Blood 2.1 g/dL (3.4-5.0); Albumin/Globulin Ratio 0.5 (0.8-1.8); Bilirubin, Total 0.2 mg/dL (0.1-1.0); Bun/Creatinine Ratio 31.3 (12.0-20.0); Calcium, Blood 8.5 mg/dL (8.5-10.1); Creatinine, Blood 0.58 mg/dL (0.40-1.00); Globulin, Blood 4.5 g/dL (2.2-4.0); Potassium, Blood 4.1 mmol/L (3.5-5.5); Total Protein, Blood 6.6 g/dL (6.4-8.2)
[2024-04-11 08:22] LABS: Adenovirus Not Detected (NOT DETECT); Bordetella pertussis Not Detected (NOT DETECT); Chlamydophila pneumoniae Not Detected (NOT DETECT); Coronavirus 229E Not Detected (NOT DETECT); Coronavirus HKU1 Not Detected (NOT DETECT); Coronavirus NL63 Not Detected (NOT DETECT); Coronavirus OC43 Not Detected (NOT DETECT); Human Metapneumovirus Not Detected (NOT DETECT); Human Rhinovirus/Enterovirus Not Detected (NOT DETECT); Influenza A/2009-H1 Detected (NOT DETECT); Influenza A/H1 Not Detected (NOT DETECT); Influenza A/H3 Not Detected (NOT DETECT); Influenza B Not Detected (NOT DETECT); Mycoplasma pneumoniae Not Detected (NOT DETECT); Parainfluenza Virus 1 Not Detected (NOT DETECT); Parainfluenza Virus 2 Not Detected (NOT DETECT); Parainfluenza Virus 3 Not Detected (NOT DETECT); Parainfluenza Virus 4 Not Detected (NOT DETECT); Respiratory Syncytial Virus Not Detected (NOT DETECT); SARS-Cov-2 (COVID-19), BioFire Not Detected (NOT DETECT)
--- NOTE | 2024-04-11 08:24 | NUR ---
Pt febrile t/o the night. This morning has malaise, anorexia and fever. Given a sponge bath and temperature reduced in the room and fever did come down from 102 orally to 99.7. Noted positive for influenza A per respiratory panel this am.
[2024-04-11] MEDS ORDERED: Metoprolol Succinate 25 MG TABCR PO SCH (09:00)
[2024-04-11] MEDS ORDERED: Diltiazem HCl 180 MG Cap.CD PO SCH (09:00)
--- NOTE | 2024-04-11 09:10 | NUR ---
SpO2 87-88% on 2 l/min while sleeping. Pt breathing with open mouth. Nasal prongs placed in her mouth, O2 gradually increased to keep spo2 greater than 90%. Dose is 4 l/min at this time. Continuous oximetry.
[2024-04-11] MEDS ORDERED: NS 1,000 ML IV SCH (10:25)
[2024-04-11] MEDS ORDERED: GuaiFENesin 600 MG TabCR PO SCH (10:40)
--- NOTE | 2024-04-11 11:26 | NUR ---
PATIENT TAKEN TO IMAGING. IV DISCONNECTED, PUREWICK DISCONNECTED AND PATIENT TRANSFFERD TO WHEELCHAIR WITH SBA ASSIST.
--- NOTE | 2024-04-11 11:43 | NUR ---
PATIENT HAS RETURNED FROM IMAGING. PATIENT RECONNECTED TO FLUIDS AND PUREWICK CONNECTED AGAIN. VITAL SIGNS STABLE. PATIENT HAS CALL LIGHT WITHIN REACH AND BED AT THE LOWEST POSITION.
[2024-04-11] MEDS ORDERED: Oseltamivir Phosphate 75 MG Cap PO ONE (12:00)
[2024-04-11] MEDS ORDERED: NS 250 ML IV ONE (12:50)
[2024-04-11 13:23] LABS: Source, Urine Clean Catch
[2024-04-11 13:34] LABS: Appearance, Urine Clear (Clear); Bilirubin, Urine Neg (Neg); Blood, Urine 1+ (Neg); Color, Urine Yellow (P-Yellow); Glucose Qualitative, Urine Neg (Neg); Ketones, Urine Neg (Neg); Leukocyte Esterase, Urine 1+ (Neg); Nitrite, Urine Neg (Neg); Protein, Urine 2+ (Neg); Urobilinogen, Urine NORM (Normal)
[2024-04-11] MEDS ORDERED: TPN Consult Notification XX ONE (13:40)
[2024-04-11 13:50] LABS: Bacteria Few /hpf; Red Blood Cells, Urine 0-2 /hpf (0-2); Squamous Epithelial Cells Few /hpf (Few)
[2024-04-11 14:25] LABS: Triglycerides 70 mg/dL (30-160)
[2024-04-11] MEDS ORDERED: NS 500 ML IV ONE (14:55)
[2024-04-11] MEDS ORDERED: Parenteral Electolytes 40 ML,Potassium Phosphate Dibasic 30 MM,Multivitamins 10 ML,ZINC... IV SCH (17:00)
--- NOTE | 2024-04-11 18:12 | NUR ---
SHIFT SUMMARY: PATIENT IS ALERT AND ORIENTED X4 AND ACTIVE IN HER CARE. SATTING >92% ON 2 LITERS VIA NASAL CANNULA. ON TELE SHOWING AFIB WITH RATE IN 100'S. PATIENT BLOOD PRESSURE WAS LOW COMING ONTO SHIFT AND TWO BOLUS'S WERE GIVEN PER EMAR. PATIENT TESTED POSITIVE FOR FLU A AND SET INTO PRECAUTIONS. BLOOD PRESSURE HAS BECOME BETTER AND PARENTERAL NUTRITION WAS STARTED PER [employer] PU[employer]ER. PATIENT HAD A CHEST X-RAY COMPLETED TODAY AND RESULTS ARE IN [facility] CHART. A SPUTUM SAMPLE WAS SENT AND AWAITING RESULTS WELL. PATIENT FAMILY AT BEDSIDE THROUGHOUT SHIFT AND BROUGHT HER DINNER. WILL CONTINUE TO MONITOR UNTIL CHANGE OF SHIFT AND NIGHT RN COMES ON.
[2024-04-11] MEDS ORDERED: Oseltamvir Phosphate 30 MG Cap PO SCH (21:00)
[2024-04-12 03:02] VITALS: BP 97/61
[2024-04-12 05:31] LABS: Magnesium, Blood 1.7 mg/dL (1.6-2.4); Phosphorus, Blood 2.4 mg/dL (2.5-4.9)
--- NOTE | 2024-04-12 05:41 | NUR ---
SHIFT SUMMARY PATIENT ALERT, ORIENTED x4, ABLE TO MAKE NEEDS KNOWN TO STAFF. PATIENT ON 4L NC WITH SPO2 >90%. PATIENT WILL DESAT TO LOW 80s WHEN 02 OUT OF NOSE. ENCOURAGED PATIENT TO COUGH AND EXPEL ANY EXCESS SECRETIONS. PATIENT PROVIDED AND EDUCATED ON USE OF FLUTTER VALVE TO ASSIST WITH CLEARING SECRETIONS. ON TELE, READING AFIB 100-110s. BP STABLE. PUREWICK IN PLACE TO SUCITON, ADEQUATE OUTPUT THIS SHIFT. MEDICATED x1 FOR NAUSEA/VOMITTING. PPN INFUSING PER EMAR. PATIENT REPORTING DECREASED APPETITE. DRESSING CHANGE COMPLETED THIS SHIFT. SITE C/D/I, NO DRAINAGE NOTED. PATIENT REPORTING TENDERNESS ON PALPATION BUT OTHERWISE STATES IT FEELS BETTER. NO OTHER CHANGES DURING THE NIGHT. WILL REPORT TO DAY SHIFT RN.
[2024-04-12 07:43] VITALS: BP 102/68
[2024-04-12] MEDS ORDERED: Magnesium Sulf 2 GM/Water 50ML 50 ML IV ONE (08:15)
[2024-04-12 08:45] LABS: Hematocrit 28.8 % (33.0-51.0); Hemoglobin 9.3 g/dL (11.5-16.0); Mean Corpuscular HGB 32.4 pg (26.0-34.0); Mean Corpuscular HGB Conc 32.3 g/dL (31.5-36.5); Mean Corpuscular Volume 100 fL (80-100); Mean Platelet Volume 11.3 fL (9.1-12.4); Platelet Count 152 K/mm3 (150-400); RDW Coefficient Variation 13.5 % (11.7-14.2); RDW Standard Deviation 49.8 fL (35.1-46.3); Red Blood Cell Count 2.87 M/mm3 (3.80-5.20); White Blood Cell Count 5.34 K/mm3 (4.00-11.30)
[2024-04-12 08:59] LABS: Albumin, Blood 1.8 g/dL (3.4-5.0); Albumin/Globulin Ratio 0.5 (0.8-1.8); Bilirubin, Total 0.2 mg/dL (0.1-1.0); Bun/Creatinine Ratio 49.1 (12.0-20.0); Calcium, Blood 8.2 mg/dL (8.5-10.1); Creatinine, Blood 0.61 mg/dL (0.40-1.00); Globulin, Blood 3.8 g/dL (2.2-4.0); Potassium, Blood 4.5 mmol/L (3.5-5.5); Total Protein, Blood 5.6 g/dL (6.4-8.2)
[2024-04-12] MEDS ORDERED: Metoprolol Succinate 25 MG TABCR PO SCH (09:00)
--- NOTE | 2024-04-12 09:14 | NUR ---
ASSUMPTION NOTE: PATIENT IS ALERT AND ORIENTED X4 AND ABLE TO MAKE NEEDS KNOWN. ON TELE SHOWING AFIB/AFLUTTER. DENIED CHEST PAIN/PRESSURE OR FEELING SOB. PATIENT IS SATTING >92% ON 2 LITERS VIA NASAL CANNULA. PATIENT WAS ABLE TO GET SOME SLEEP LAST NIGHT BUT IS STILL VERY TIRED THIS MORNING. PATIENT TOOK MEDICATIONS WITHOUT ANY PROBLEMS THIS AM.
[2024-04-12 11:32] VITALS: BP 100/72
--- NOTE | 2024-04-12 11:43 | NUR ---
MD CALLED: CALL WAS PLACED TO MD COVERING THIS PATIENT FOR A SLEEP STUDY O2 AND VERICATION IF WE ARE TO RUN FLUIDS. MD STATED HE WILL BE AT BEDSIDE SHORTLY.
[2024-04-12 13:12] LABS: BAND PERCENT MAN 17 % (0-8); BASOPHILS PERCENT MAN 0 % (0-2); EOSINOPHILS PERCENT MAN 0 % (0-6); LYMPHOCYTES % ATYPICAL MANUAL 1 % (0-0); LYMPHOCYTES ABSOLUTE MAN 1.01 K/mm3 (0.84-5.20); LYMPHOCYTES PERCENT MAN 18 % (21-46); MONOCYTES PERCENT MAN 2 % (4-13); NEUTROPHILS ABSOLUTE MAN 4.21 K/mm3 (1.96-9.15); SEG NEUTROPHILS PERCENT MAN 62 % (41-73); TOTAL CELLS COUNTED 100
--- NOTE | 2024-04-12 15:45 | NUR ---
HANDOFF REPORT: THIS RN TO HANDOFF PATIENT CARE TO SANJIV CASTILLO. PATIENT IS ALERT AND ORIETNED X4 AND ABLE TO MAKE NEEDS KNOWN. IS ON TELE SHOWING AFIB WITH RATE 90-100'S THROUGHOUT SHIFT. PATIENT SLEEPING AND WAS ABLE TO TOLERATE MEDICATIONS AND CONTINUTES TO GET PPN NUTRITION. PATIENT FAMILY TO COME TONIGHT AND BRING DINNER. PATIENT WAS ENCOURAGED TO USE FLUTTER VALVE AND INCENTIVE SPIROMETER. BLOOD PRESSURE HAVE BEEN GOOD AND PATIENT WAS NOT GIVEN ANY FLUID. PALLIATIVE CARE WAS CONSULTED AND PATIENT DECLINED SNF PLACEMENT. SHE WAS GIVEN INFORMATION ABOUT IN HOME CARE GIVERS.
[2024-04-12 15:54] VITALS: BP 107/76
--- NOTE | 2024-04-12 17:43 | NUR ---
Attempt to reach pt's son Baldomero, left voicemail. Plan to assess pt in the am, and hope to speak with Baldomero as well.
[2024-04-12 19:48] VITALS: BP 95/57
[2024-04-12 23:52] VITALS: BP 95/69
[2024-04-13 04:32] VITALS: BP 91/77
[2024-04-13 05:09] LABS: BASOPHILS ABSOLUTE AUTO 0.01 K/mm3 (0.00-0.23); BASOPHILS PERCENT AUTO 0 % (0-2); EOSINOPHILS PERCENT AUTO 0 % (0-6); Hematocrit 26.3 % (33.0-51.0); Hemoglobin 8.8 g/dL (11.5-16.0); Mean Corpuscular HGB 34.4 pg (26.0-34.0); Mean Corpuscular HGB Conc 33.5 g/dL (31.5-36.5); Mean Corpuscular Volume 103 fL (80-100); Mean Platelet Volume 11.8 fL (9.1-12.4); Platelet Count 120 K/mm3 (150-400); RDW Coefficient Variation 13.7 % (11.7-14.2); Red Blood Cell Count 2.56 M/mm3 (3.80-5.20); White Blood Cell Count 3.21 K/mm3 (4.00-11.30)
[2024-04-13 05:17] LABS: IMMATURE GRAN ABSOLUTE AUTO 0.02 K/mm3 (0.00-0.10); IMMATURE GRAN PERCENT AUTO 1 % (0-1); LYMPHOCYTES ABSOLUTE AUTO 1.05 K/mm3 (0.84-5.20); LYMPHOCYTES PERCENT AUTO 33 % (21-46); MONOCYTES ABSOLUTE AUTO 0.26 K/mm3 (0.16-1.47); MONOCYTES PERCENT AUTO 8 % (4-13); NEUTROPHILS ABSOLUTE AUTO 1.87 K/mm3 (1.96-9.15); NEUTROPHILS PERCENT AUTO 58 % (41-73)
--- NOTE | 2024-04-13 07:19 | NUR ---
SHIFT SUMMARY: A&OX4, PLEASANT AND COOPERATIVE WITH CARE. VSS, AFEBRILE, ON 2L NC. A-FIB IN THE 90'S. SLEEP STUDY IN PROCESS T/O NIGHT, PT ON RA T/O STUDY SATTING 86-89%. PT C/O PAIN 7/10 IN ABD FROM COUGHING, AND GENERALIZED ALL OVER, MEDICATED WITH PRN 5MG PO NORCO. DRESSING TO RIGHT HIP C/D/I, CHANGED PER ORDER. PT ON A SOFT AND BITE SIZE DIET, POOR PO INTAKE. PPN INFUSING PER EMAR. WICKING SYSTEM DRAINING ADEQUATE AMOUNTS OF CLEAR, YELLOW URINE. NO BM THIS SHIFT, BOWEL CARE ADMINISTERED. NOOB THIS SHIFT. BED IN LOWEST POSITION, CALL LIGHT WITHIN REACH. DROPLET PRECAUTIONS MAINTAINED FOR POSITIVE INFLUENZA. PT POLST FILLED OUT BY PT AND FAMILY, SIGNED BY NIGHT RESIDENT. CODE STATUS CHANGED PER ORDER.
[2024-04-13 07:34] VITALS: BP 97/71
[2024-04-13 10:48] LABS: Magnesium, Blood 2.2 mg/dL (1.6-2.4)
[2024-04-13 10:52] LABS: Anion Gap 10 mmol/L (3-11); Blood Urea Nitrogen 37 mg/dL (8-24); Bun/Creatinine Ratio 60.7 (12.0-20.0); CO2, Blood 26 mmol/L (21-32); Calcium, Blood 8.5 mg/dL (8.5-10.1); Chloride, Blood 100 mmol/L (98-108); Creatinine, Blood 0.61 mg/dL (0.40-1.00); Glomerular Filtration Rate 97 (60-); Glucose, Blood 93 mg/dL (70-99); Phosphorus, Blood 2.5 mg/dL (2.5-4.9); Potassium, Blood 4.7 mmol/L (3.5-5.5); Sodium, Blood 131 mmol/L (136-145); Total Protein, Blood 5.8 g/dL (6.4-8.2)
[2024-04-13 10:53] LABS: Alanine Aminotransfer (ALT/SGP <6 U/L (12-78); Albumin, Blood 1.8 g/dL (3.4-5.0); Albumin/Globulin Ratio 0.5 (0.8-1.8); Alk Phos 83 U/L (50-136); Aspartate Aminotrans (AST/SGOT 36 U/L (12-37); Bilirubin, Total 0.3 mg/dL (0.1-1.0)
[2024-04-13 12:19] VITALS: BP 100/67
[2024-04-13 15:44] VITALS: BP 94/64
[2024-04-13] MEDS ORDERED: Parenteral Electolytes 40 ML,Potassium Phosphate Dibasic 30 MM,Multivitamins 10 ML,ZINC... IV SCH (17:00)
--- NOTE | 2024-04-13 17:53 | NUR ---
SHIFT SUMMARY: PT ALERT AND ORIENTED X3, ABLE TO FOLLOW COMMANDS AND MAKE NEEDS KNOWN. FORGETFUL. PT LETHARGIC THIS SHIFT, ABLE TO WAKEN TO VERBAL/PAINFUL STIMULI, QUICKLY FALLS BACK ASLEEP. BP AND HR STABLE. AFEBRILE. SPO2 96% ON 4L NC. LUNG SOUNDS COARSE WITH CRACKLES. PT WITH WEAK COUGH EFFORT. ABD SOFT, NON TENDER, BOWEL SOUNDS +. PUREWICK IN PLACE, CONNECTED TO LOW CONTINUOUS SUCTION. PT ABLE TO SIT IN CHAIR FOR BREAKFAST THIS AM, 2 PERSON ASSIST WITH FWW. TOLERATED WELL. ON AT BEDSIDE THIS EVENING, UPDATED ON PT PLAN OF CARE. PPN GTT. PT WITH POOR ORAL INTAKE. NO BM. BED IN LOW, CALL LIGHT IN REACH, WILL REPORT TO ONCOMING RN.
[2024-04-13 19:45] VITALS: BP 108/67
[2024-04-13 23:30] VITALS: BP 120/75
[2024-04-14 04:11] VITALS: BP 102/71
[2024-04-14 05:28] LABS: Magnesium, Blood 2.1 mg/dL (1.6-2.4); Phosphorus, Blood 2.4 mg/dL (2.5-4.9)
--- NOTE | 2024-04-14 06:36 | NUR ---
SHIFT SUMMARY: A&OX4, PLEASANT AND COOPERATIVE WITH CARE. PT IS MORE SOMNOLENT THIS SHIFT, BUT WAKENS WITH VERBAL STIMULI. DENIES PAIN. VSS, AFEBRILE, ON 2L NC. A-FIB 80'S-90'S. DRESSING TO RIGHT HIP C/D/I, CHANGED PER ORDER. PT ON A SOFT AND BITE SIZE DIET, POOR PO INTAKE. PPN INFUSING PER EMAR. WICKING SYSTEM DRAINING ADEQUATE AMOUNTS OF CLEAR, YELLOW URINE. NO BM THIS SHIFT, BOWEL CARE ADMINISTERED. REPOSITIONED TOLERATED. NOOB THIS SHIFT. BED IN LOWEST POSITION, CALL LIGHT WITHIN REACH. DROPLET PRECAUTIONS MAINTAINED FOR POSITIVE INFLUENZA.
[2024-04-14 08:04] LABS: Albumin, Blood 1.6 g/dL (3.4-5.0); Albumin/Globulin Ratio 0.4 (0.8-1.8); Bilirubin, Total 0.2 mg/dL (0.1-1.0); Bun/Creatinine Ratio 72.5 (12.0-20.0); Calcium, Blood 8.4 mg/dL (8.5-10.1); Creatinine, Blood 0.47 mg/dL (0.40-1.00); Globulin, Blood 3.8 g/dL (2.2-4.0); Total Protein, Blood 5.4 g/dL (6.4-8.2)
[2024-04-14 08:06] LABS: BASOPHILS ABSOLUTE AUTO 0.01 K/mm3 (0.00-0.23); BASOPHILS PERCENT AUTO 0 % (0-2); EOSINOPHILS ABSOLUTE AUTO 0.01 K/mm3 (0.00-0.68); EOSINOPHILS PERCENT AUTO 0 % (0-6); Hematocrit 27.1 % (33.0-51.0); Hemoglobin 8.8 g/dL (11.5-16.0); IMMATURE GRAN ABSOLUTE AUTO 0.02 K/mm3 (0.00-0.10); IMMATURE GRAN PERCENT AUTO 1 % (0-1); LYMPHOCYTES ABSOLUTE AUTO 1.05 K/mm3 (0.84-5.20); LYMPHOCYTES PERCENT AUTO 31 % (21-46); MONOCYTES ABSOLUTE AUTO 0.42 K/mm3 (0.16-1.47); MONOCYTES PERCENT AUTO 13 % (4-13); Mean Corpuscular HGB 31.9 pg (26.0-34.0); Mean Corpuscular HGB Conc 32.5 g/dL (31.5-36.5); Mean Platelet Volume 12.1 fL (9.1-12.4); NEUTROPHILS ABSOLUTE AUTO 1.85 K/mm3 (1.96-9.15); NEUTROPHILS PERCENT AUTO 55 % (41-73); Platelet Count 112 K/mm3 (150-400); RDW Coefficient Variation 13.3 % (11.7-14.2); RDW Standard Deviation 47.5 fL (35.1-46.3); Red Blood Cell Count 2.76 M/mm3 (3.80-5.20); White Blood Cell Count 3.36 K/mm3 (4.00-11.30)
[2024-04-14 08:13] LABS: Mean Corpuscular Volume 98 fL (80-100)
[2024-04-14 08:51] VITALS: BP 92/63
[2024-04-14 12:01] VITALS: BP 103/69
[2024-04-14 16:25] VITALS: BP 103/71
--- NOTE | 2024-04-14 16:42 | NUR ---
SHIFT SUMMARY: PT REMAINS SOMULENT THIS SHIFT. ABLE TO WAKE TO VERBAL/PAINFUL STIMULI, QUICKLY FALLS BACK ASLEEP. PT WITH HALLUCINATIONS THIS AFTERNOON, EASILY RE ORIENTED. BP STABLE. HR AFIB 80'S. AFEBRILE. SPO2 >96% ON ROOM 2L NC. ABD SOFT, NON TENDER, BOWEL SOUNDS +. PUREWICK REMAINS IN PLACE, CONNECTED TO LOW CONTINUOUS SUCTION. NO BM. PT WITH R. HIP WOUND. DRESSING C/D/I. PT DENIES PAIN. MD AT BEDSIDE THIS AFTERNOON AND SPOKE WITH PT FAMILY. NS RESTARTED @100ML/HR. PPN REMAINS INFUSING. PO INTAKE REMAINS POOR. PT REPOS Q2 TO MAINTAIN SKIN INTEGRTIY. BED IN LOW, CALL LIGHT IN REACH, WILL REPORT TO ONCOMING RN.
[2024-04-14] MEDS ORDERED: Sodium Chloride 3% For Inhalation 15 ML VIAL.NEB INH SCH (16:55)
[2024-04-14 20:30] VITALS: BP 121/70
--- NOTE | 2024-04-14 21:20 | NUR ---
ASSUMED CARE PT A&O X4; WEAK, BUT PARTICIPATING IN CARE. ASSISTING W/ TURNS.
[2024-04-14 23:46] VITALS: BP 122/75
[2024-04-15 02:13] LABS: Base Excess Venous 3.2 mmol/L; Bicarbonate Venous 27.4 mmol/L (24.0-30.0); PCO2 Venous 29.8 mmHg (38-42); pH Blood Venous 7.54 (7.34-7.37)
[2024-04-15 02:14] LABS: BASOPHILS ABSOLUTE AUTO 0.01 K/mm3 (0.00-0.23); BASOPHILS PERCENT AUTO 0 % (0-2); EOSINOPHILS ABSOLUTE AUTO 0.01 K/mm3 (0.00-0.68); EOSINOPHILS PERCENT AUTO 0 % (0-6); Hematocrit 26.1 % (33.0-51.0); Hemoglobin 8.6 g/dL (11.5-16.0); Mean Corpuscular HGB 32.1 pg (26.0-34.0); Mean Corpuscular Volume 97 fL (80-100); Mean Platelet Volume 11.4 fL (9.1-12.4); Platelet Count 103 K/mm3 (150-400); RDW Coefficient Variation 13.4 % (11.7-14.2); RDW Standard Deviation 47.9 fL (35.1-46.3); Red Blood Cell Count 2.68 M/mm3 (3.80-5.20)
[2024-04-15 02:18] LABS: IMMATURE GRAN ABSOLUTE AUTO 0.02 K/mm3 (0.00-0.10); IMMATURE GRAN PERCENT AUTO 1 % (0-1); LYMPHOCYTES ABSOLUTE AUTO 0.88 K/mm3 (0.84-5.20); LYMPHOCYTES PERCENT AUTO 28 % (21-46); MONOCYTES PERCENT AUTO 13 % (4-13); NEUTROPHILS ABSOLUTE AUTO 1.88 K/mm3 (1.96-9.15); NEUTROPHILS PERCENT AUTO 59 % (41-73)
--- NOTE | 2024-04-15 02:30 | NUR ---
UPDATE PT ANXIOUS AND GIVEN XANAX PER EMAR. PT BECAME AGITATED AGAIN AND THIS RN IN ROOM TALKING W/ PT. CALLED RESIDENT W/ ORDERS FOR VBG. VBG CRITICAL CALLED W/ ORDERS TO MONITOR.
[2024-04-15 02:57] LABS: Bun/Creatinine Ratio 67.7 (12.0-20.0); Calcium, Blood 8.1 mg/dL (8.5-10.1); Creatinine, Blood 0.4 mg/dL (0.40-1.00); Magnesium, Blood 1.6 mg/dL (1.6-2.4); Phosphorus, Blood 2.4 mg/dL (2.5-4.9); Potassium, Blood 4.5 mmol/L (3.5-5.5)
[2024-04-15 04:15] VITALS: BP 102/90
--- NOTE | 2024-04-15 05:49 | NUR ---
INTAKE/OUTPUT AM INTAKE/OUTPUT CHARTED. IV/PPN WAS FROM PAST 24 HOURS. WAS NOT CLEARED ON DAY SHIFT.
--- NOTE | 2024-04-15 05:52 | NUR ---
SHIFT SUMMARY NO ACUTE EVENTS SINCE LAST NOTE (PT BECAME ANXIOUS/AGITATED; CRITICAL VBG ALSO CALLED TO RESIDENT, SEE LAST NOTE). PT HAS BEEN SLEEPING. SPO2 >92% ON 1LNC; MAP >65; RATE 80'S.
[2024-04-15] MEDS ORDERED: LORazepam 2 MG/ML 1ML Injection IV ONE (06:30)
--- NOTE | 2024-04-15 06:46 | NUR ---
UPDATE PT WOKE UP ANXIOUS, CONTINUED TO BE ORIENTED 3-4, CALLED DR DUMONT W/ ORDER FOR 0.5MG ATIVAN; PT SLEEPING AT THIS TIME.
[2024-04-15 09:00] VITALS: BP 113/79
--- NOTE | 2024-04-15 09:30 | NUR ---
INITIAL ASSESSMENT: Patient is awake oriented to self only, states she thinks we are in [place]. She denies pain at this time. HR Irreg, she is in A-Flutter in the 80s, blood pressure stable. She reports some SOB at this time, audible crackles heard, she has shallow tachypnec respirations. Biox is 93% on RA. BT+, she has not had a BM for about 2 weeks now due to very poor oral intake, she was able to transfer to the [facility] with a 2PA with gait belt and FWW. She had a small BM that was white and mucousy. She did have a pure wick in, this RN informed her we would like her to use the [facility] for voiding today. After BM patient is assisted to the chair, she did not eat any breakfast and refused ensure. She was able to take her PO meds whole with water. She denies other needs a this time. Call light in reach.
--- NOTE | 2024-04-15 16:00 | NUR ---
Update: Patient is alert and oriented x4. She has bene up in the chair for meals, VSS. She denies needs at this time. Call light in reach, bed alarm on for safety.
--- NOTE | 2024-04-15 17:27 | NUR ---
Summary: Patient started out the day with some confusion, she ended the day completely alert and oriented. She was medicated once this shift with Canon for right hip pain. She has been in A-Flutter with rate controlled in the 80s. LS DIM with crackles, she has been low 90s on RA, she has an occasional PC with thick villarreal sputum. BT+, she has had a few small mucosal white bowel movements this shift. She was able to transfer to the [facility] with 2PA with FWW and gait belt. VSS. She was downgraded to medical no telemetry status. No acute changes this shift. Will report to oncoming RN.
[2024-04-15 20:30] VITALS: BP 94/62
--- NOTE | 2024-04-15 23:21 | NUR ---
NURSE NOTE PATIENT IS A+O X4 THIS SHIFT, ABLE TO MAKE NEEDS KNOW AND USING CALL LIGHT CORRECTLY. 1-2 STAFF ASSIST TRANSFER FROM BED TO BSC WITH FWW. PATIENT NOW HAS A PURWIKE IN PLACE TO BED ABLE TO REST TONIGHT. REPOSTIONING OFFERED FOR COMFORT. PPN INFUSING PER EMAR. LUNGS SOUNDS COARSE CRACKLES. HOB AT 30% AND PATIENT IS NOW RESTING IN BED. CALL LIGHT IN REACH.
[2024-04-16] VITALS (7 sets, daily range): BP systolic 94–139; BP diastolic 64–99
[2024-04-16] MEDS ORDERED: CefTRIAXone Sodium 1,000 MG in NS 100 ML IV SCH (00:58)
[2024-04-16] MEDS ORDERED: Azithromycin 500 MG in NS 250 ML IV SCH (00:59)
--- NOTE | 2024-04-16 04:24 | NUR ---
SHIFT SUMMARY PATIENT REMAINS A+O X4, AND ABLE TO MAKE NEEDS KNOW. PURWIKE IN PLACE DRAINING TO SUCTION. PPN INFUSING PER EMAR. ABX INFUSED. PATIENT DENIES PAIN AND DISCOMFORT WHEN ASKED. MEDIPORE DRESSING TO R HIP C/D/I. VSS. RA SATURATIONS ABOVE 90% DURING SHIFT. REMAINS MEDICAL STATUS W/ NO TELE. CALL LIGHT IS IN REACH, BED IN LOWEST POSTION FOR SAFETY. WILL CONTINUE TO TREAT AND REPORT TO ON COMING RN.
[2024-04-16 05:12] LABS: BASOPHILS ABSOLUTE AUTO 0.01 K/mm3 (0.00-0.23); BASOPHILS PERCENT AUTO 0 % (0-2); EOSINOPHILS ABSOLUTE AUTO 0.04 K/mm3 (0.00-0.68); EOSINOPHILS PERCENT AUTO 1 % (0-6); Hematocrit 26.8 % (33.0-51.0); Hemoglobin 8.6 g/dL (11.5-16.0); Mean Corpuscular HGB 31.4 pg (26.0-34.0); Mean Corpuscular HGB Conc 32.1 g/dL (31.5-36.5); Mean Corpuscular Volume 98 fL (80-100); Mean Platelet Volume 11.9 fL (9.1-12.4); Platelet Count 134 K/mm3 (150-400); RDW Coefficient Variation 13.5 % (11.7-14.2); RDW Standard Deviation 48.6 fL (35.1-46.3); Red Blood Cell Count 2.74 M/mm3 (3.80-5.20); White Blood Cell Count 3.52 K/mm3 (4.00-11.30)
[2024-04-16 05:15] LABS: IMMATURE GRAN ABSOLUTE AUTO 0.04 K/mm3 (0.00-0.10); IMMATURE GRAN PERCENT AUTO 1 % (0-1); LYMPHOCYTES ABSOLUTE AUTO 1.04 K/mm3 (0.84-5.20); LYMPHOCYTES PERCENT AUTO 30 % (21-46); MONOCYTES ABSOLUTE AUTO 0.49 K/mm3 (0.16-1.47); MONOCYTES PERCENT AUTO 14 % (4-13); NEUTROPHILS PERCENT AUTO 54 % (41-73)
[2024-04-16 05:38] LABS: Bun/Creatinine Ratio 53.4 (12.0-20.0); Calcium, Blood 8.6 mg/dL (8.5-10.1); Creatinine, Blood 0.47 mg/dL (0.40-1.00); Phosphorus, Blood 2.7 mg/dL (2.5-4.9); Potassium, Blood 4.5 mmol/L (3.5-5.5)
--- NOTE | 2024-04-16 08:45 | NUR ---
AM NOTE: PATIENT ALERT AND ORIENTED. WAKES THIS AM SLIGHTLY CONFUSED BUT REORIENTS EASILY AFTER A FEW MIN. PERRLA. MOVING ALL EXTREMITIES. OVERALL WEAKNESS. COMPLAINS OF INTERMIT SCIATICA PAIN. FOLLOWING COMMANDS. UP TO RECLINER/BSC WITH 1-2 PERSON, GAIT BELT AND FWW. MEDICAL STATUS NO TELE. SBP 120'S. HR 80'S. DENIES CHEST PAIN/PRESSURE/PALPITATIONS. MINIMAL EDEMA TO BLE. PPN INFUSING PER EMAR. ON ROOM AIR SATING MID-HIGH 90'S. LUNG SOUNDS COARSE WITH CRACKLES IN BASES. OCCASIONAL COUGH. SOB WITH EXCERTION. EVEN AND UNLABORED RESPIRATIONS AT REST. BOWEL TONES PRESENT THROUGHOUT. POOR APPEATITE. PO INTAKE ENCOURAGED. PUREWICK REMOVED THIS AM. UP TO BSC TO VOID. UPPER DENTURES IN PLACE. ATTENDS IN PLACE. PPN INFUSING PER EMAR. RIGHT HIP WOUND CLEANSED AND DRESSING CHANGED PER WOUND CARE ORDERS. PATIENT UP TO RECLINER FOR MEALS. DR. MUSTAFA AT BEDSIDE THIS AM. NO NEW ORDERS FOR THIS RN TO PLACE. CALL LIGHT IN REACH. FAMILY AT BEDSIDE THIS AFTERNOON AND UPDATED BY THIS RN.
[2024-04-16] MEDS ORDERED: TPN Consult Notification XX ONE (11:40)
--- NOTE | 2024-04-16 16:04 | NUR ---
PHYSICAL THERAPY SESSION THIS AFTERNOON. PATIENT UP TO RECLINER X3 TODAY. CONTINUES TO BE SOB WITH EXCERTION. VITAL SIGNS STABLE. REMAINS ON ROOM AIR. MEDICATED X1 FOR PAIN PER EMAR WITH GOOD RELIEF. PATIENTS APPEATITE CONTINUES TO BE POOR. CONSUMED 1 BANANA FOR LUNCH. PO INTAKE ENCOURAGED. PPN CONTINUES TO INFUSE.
[2024-04-16] MEDS ORDERED: Parenteral Electolytes 40 ML,Potassium Phosphate Dibasic 30 MM,Multivitamins 10 ML,ZINC... IV SCH (17:00)
--- NOTE | 2024-04-16 18:36 | NUR ---
SEE PREVIOUS NOTES FOR UPDATES. PATIENT UP TO RECLINER FOR ALL MEALS. UP TO BSC AND WORKED WITH PHYSICAL THERAPY TODAY. MEDICAL NO TELE. REMAINS ROOM AIR. MEDICATED X1 FOR PAIN THIS SHIFT. CONTINUES TO BE SOB WITH MOVEMENTS. CONTINUES TO HAVE COARSE/CRACKLES. ENCOURAGED TO USE IS AND FLUTTER. SON AT BEDSIDE THIS EVENING AND BROUGHT PATIENT DINNER. PPN INFUSING PER EMAR. CALL LIGHT IN REACH UP IN RECLINER AT THIS TIME EATING DINNER AND VISITING WITH SON.
[2024-04-16] MEDS ORDERED: Albuterol 2.5 MG/3 ML VIAL INH PRN (19:25)
--- NOTE | 2024-04-16 22:23 | NUR ---
ASSUMED CARE OF THIS PATIENT AT 1915. PATIENT IS A+O X4. ABLE TO MAKE NEEDS KNOW. THIS RN WAS DOING NOC CARE AND CHECKED PT BRIEF WHICH WAS WET WITH URINE, CHANGED BRIEF AND PLACED PURWIKE. FELI CARE PROVIDED. PATIENT WAS GIVEN PART BED BATH, ORAL CARE, DENTURE CARE, LOTION APPLIED TO EXTERMITIES. PT WASHED FACE WITH RAG. AROUND 1999 PROP SAWYER CALLED THIS RN TO ROOM, PATIENT WAS ATTEMPTING TO TRANSFER TO THE BSC W/ ASSISTANCE FROM THE PROP SAWYER WHEN SHE HAD A BOWEL MOVEMENT. PATIENT HAD A LARGE LIQUID BM. 3 STAFF ASSISTED PATIENT TO GET CLEANED UP, NEW LIEN ON BED. CLEAN BREIF AND NEW PURWIKE WAS PLACED. ABX INFUSING PER EMAR, AND PATIENT IS NOW RESTING IN BED. CALL LIGHT IN REACH, BED IN LOWEST POSTION.
[2024-04-17 04:09] VITALS: BP 132/76
[2024-04-17 04:25] LABS: Hematocrit 24.7 % (33.0-51.0); Hemoglobin 7.9 g/dL (11.5-16.0); Mean Corpuscular HGB 31.2 pg (26.0-34.0); Mean Corpuscular Volume 98 fL (80-100); Mean Platelet Volume 11.3 fL (9.1-12.4); Platelet Count 169 K/mm3 (150-400); RDW Coefficient Variation 13.6 % (11.7-14.2); RDW Standard Deviation 48.8 fL (35.1-46.3); Red Blood Cell Count 2.53 M/mm3 (3.80-5.20); White Blood Cell Count 4.03 K/mm3 (4.00-11.30)
--- NOTE | 2024-04-17 04:31 | NUR ---
SHIFT SUMMARY PATIENT HAS BEEN SLEEPING ON AND OFF DURING THE NIGHT, WHEN AWOKEN CAN BE CONFUSED BUT IS EASILY REORIENTED. ABLE TO MAKE HER NEEDS KNOW. VSS. NO TELE. PATIENT TRANSITIONS BETWEEN RA AND 2 LITERS NC. PATIENT HAS A COUGH THAT IS AT TIMES PRODUCTIVE. PPN IS INFUSING PER EMAR. ABX INFUSED PER EMAR. NO ACUTE EVENTS. BED IN LOWEST POSTION, CALL LIGHT IN REACH, WILL REPORT TO ON COMING RN.
[2024-04-17 04:46] LABS: Bun/Creatinine Ratio 51.5 (12.0-20.0); Calcium, Blood 8.3 mg/dL (8.5-10.1); Creatinine, Blood 0.47 mg/dL (0.40-1.00); Phosphorus, Blood 3.2 mg/dL (2.5-4.9); Potassium, Blood 4.6 mmol/L (3.5-5.5)
[2024-04-17 05:16] LABS: BAND PERCENT MAN 2 % (0-8); BASOPHILS PERCENT MAN 0 % (0-2); EOSINOPHILS PERCENT MAN 0 % (0-6); LYMPHOCYTES % ATYPICAL MANUAL 1 % (0-0); LYMPHOCYTES ABSOLUTE MAN 0.96 K/mm3 (0.84-5.20); LYMPHOCYTES PERCENT MAN 23 % (21-46); METAMYELOCYTE ABSOLUTE MAN 0.04 K/mm3 (0.00-0.00); METAMYELOCYTE PERCENT MAN 1 % (0-0); MONOCYTES ABSOLUTE MAN 0.52 K/mm3 (0.16-1.47); MONOCYTES PERCENT MAN 13 % (4-13); MYELOCYTE ABSOLUTE MAN 0.12 K/mm3 (0.00-0.00); MYELOCYTE PERCENT MAN 3 % (0-0); NEUTROPHILS ABSOLUTE MAN 2.37 K/mm3 (1.96-9.15); SEG NEUTROPHILS PERCENT MAN 57 % (41-73); TOTAL CELLS COUNTED 100
[2024-04-17 08:06] VITALS: BP 132/92
--- NOTE | 2024-04-17 08:24 | NUR ---
pt assisted to sit on side of bed. B/P checked, WNL. She used the BSC without any dizzyness/lightheadedness but she is weak. Used the geriwalker and needed gait belt and staff assist to stand, pivot and transfer. After voiding she walked a few steps to sit in the recliner for breakfast. Coughing up small amounts of yellow sputum, lung sounds are coarse throughout with some wheezing noted and dyspnea with minimal activity. At rest RR 22/minute and spo2 96% on room air, but with acitivity this morning spo2 was briefly 88%, with dyspnea. She is currently getting a saline updraft.
[2024-04-17 11:27] VITALS: BP 110/87
--- NOTE | 2024-04-17 11:33 | NUR ---
REPOSITIONED ON HER LEFT SIDE, NECK ROLL WITHHER OWN SOFT BLANKET PER HER REQUEST.
--- NOTE | 2024-04-17 11:59 | NUR ---
Spoke with Dr. Leyva at this time, mentioned pt's conversation with physical therapist Melecio this morning, and pt indicated that she was perhaps considering comfort care. Melecio was going to talk with the palliative care RN. pt also refusing Gabapentin, states that it is a new medication and that it is giving her vivid nightmares.
[2024-04-17 12:30] LABS: Hemoglobin 8.3 g/dL (11.5-16.0)
[2024-04-17 13:29] VITALS: BP 128/50
[2024-04-17 14:40] VITALS: BP 110/63
--- NOTE | 2024-04-17 17:24 | NUR ---
Pt was assisted up to BSC to void, then to recliner chair. She is eating food her son brought her.
[2024-04-17 19:55] VITALS: BP 116/59
[2024-04-18 03:42] VITALS: BP 138/87
--- NOTE | 2024-04-18 04:57 | NUR ---
SHIFT SUMMARY ASSUMED CARE OF PT AT APPROX 1900. PT A&O4 BUT HAS SOME CONFUSION T/O THE NIGHT. PT STATED SHE HAD NOT HAD A BED BATH IN OVER 5 DAYS, BED BATH WAS GIVEN BY RN AND AID POST DIARRHEA INCIDENT EARLY 04/17/24 MORNING. PT REQUESTED PUREWICK OVERNIGHT D/T FREQUENCY AND URGENCY, AND STATES SHE WILL BE AWAKE ALL NIGHT OTHERWISE. PT ALSO REPORTED BACK AND BODY PAIN, ANXIETY AND CHEST PAIN AT VARIOUS TIMES OVERNIGHT. EKG TAKEN, TROPS ORDERED BY MD AND PRN MEDS GIVEN. PT NOW RESTING COMFORTABLY IN BED. BED IN LOWEST POSITION AND CALL LIGHT WITHIN REACH.
[2024-04-18 08:07] VITALS: BP 101/61
--- NOTE | 2024-04-18 08:29 | NUR ---
ASSUMED CARE OF PATIENT. UP IN CHAIR DURING SHIFT CHANGE REPORT. ASKED WHEN SHE'LL BE GETTING A BED BATH WHICH HAD JUST BEEN COMPLETED. NO ACUTE CONCERNS.
[2024-04-18 09:30] VITALS: BP 108/64
--- NOTE | 2024-04-18 14:46 | NUR ---
CALL FROM XR; TRANSPORT WILL BE HERE TO GET HER IN 15 MINUTES FOR CERVICAL XR. PREMEDICATED c PRN ANTONICO.
[2024-04-18] MEDS ORDERED: FentaNYL Citrate 50 MCG/ML 2 ML Injection IV PRN (18:20)
[2024-04-18] MEDS ORDERED: OxyCODONE 5 mg/Acetamin 325 mg TABLET PO PRN (18:20)
[2024-04-18] MEDS ORDERED: Ketorolac Tromethamine 30mg Vial IV ONE (19:00)
--- NOTE | 2024-04-18 19:25 | NUR ---
END OF SHIFT SUMMARY: A&Ox4. APPEARS OLDER THAN STATED AGE. COOPERATIVE WITH CARE. CALLS APPROPRIATELY. ADVOCATES MOST NEEDS BUT DID TELL HER FAMILY THIS EVENING THAT SHE WANTED TO LEAVE BECAUSE HER NECK PAIN WAS NOT BEING ADEQUATELY MANAGED. JUAN RAMON TO BEDSIDE TO DISCUSS AND MED CHANGES MADE. NIGHT RN TO GIVE PRN ALPRAZOLAM TONIGHT WITH BEDTIME MEDS FAMILY BELEIVES THIS IS ANXIETY-RELATED. SOME WORK WTIH PT/OT TODAY. 1PA c GB & FWW TO BSC, RECLINER, ETC. POOR APPETITE TODAY; DID FINALLY EAT SOME FOOD SON BROUGHT IN. TELE A-FIB/A-FLUTTER WITH LABILE READINGS ON MONITOR. NECK XR DONE. CONTINUES TO REFUSE GABAPENTIN DUE TO C/O NIGHTMARES. BED IN LOWEST POSITION, CALL LIGHT WITHIN REACH, ALL NEEDS MET. REPORT TO ONCOMING NURSE.
[2024-04-18] MEDS ORDERED: Sennosides 8.6 MG Tab PO SCH (21:00)
[2024-04-18 21:01] VITALS: BP 123/77
[2024-04-19 03:16] VITALS: BP 123/74
[2024-04-19 04:14] LABS: BASOPHILS ABSOLUTE AUTO 0.02 K/mm3 (0.00-0.23); BASOPHILS PERCENT AUTO 0 % (0-2); EOSINOPHILS ABSOLUTE AUTO 0.09 K/mm3 (0.00-0.68); EOSINOPHILS PERCENT AUTO 1 % (0-6); Hematocrit 23.8 % (33.0-51.0); Hemoglobin 7.6 g/dL (11.5-16.0); IMMATURE GRAN ABSOLUTE AUTO 0.09 K/mm3 (0.00-0.10); IMMATURE GRAN PERCENT AUTO 1 % (0-1); LYMPHOCYTES ABSOLUTE AUTO 1.07 K/mm3 (0.84-5.20); LYMPHOCYTES PERCENT AUTO 13 % (21-46); MONOCYTES ABSOLUTE AUTO 1.31 K/mm3 (0.16-1.47); MONOCYTES PERCENT AUTO 16 % (4-13); Mean Corpuscular HGB 31.4 pg (26.0-34.0); Mean Corpuscular HGB Conc 31.9 g/dL (31.5-36.5); Mean Corpuscular Volume 98 fL (80-100); Mean Platelet Volume 10.8 fL (9.1-12.4); NEUTROPHILS ABSOLUTE AUTO 5.63 K/mm3 (1.96-9.15); NEUTROPHILS PERCENT AUTO 69 % (41-73); Platelet Count 307 K/mm3 (150-400); RDW Coefficient Variation 13.9 % (11.7-14.2); RDW Standard Deviation 49.7 fL (35.1-46.3); Red Blood Cell Count 2.42 M/mm3 (3.80-5.20); White Blood Cell Count 8.21 K/mm3 (4.00-11.30)
[2024-04-19 04:35] LABS: Bun/Creatinine Ratio 42.1 (12.0-20.0); Calcium, Blood 8.4 mg/dL (8.5-10.1); Creatinine, Blood 0.52 mg/dL (0.40-1.00); Phosphorus, Blood 3.4 mg/dL (2.5-4.9); Potassium, Blood 4.6 mmol/L (3.5-5.5)
--- NOTE | 2024-04-19 06:29 | NUR ---
SHIFT SUMMARY PATIENT ALERT AND ORIENTED X4. MEDICATED PER EMAR FOR PAIN AND ANXIETY. AFTER BEING MEDICATED, PATIENT'S WEAKNESS INCREASED, WAS SLIGHTLY CONFUSED AND HAVING TROUBLE FORMING SENTENCES BUT FOLLWING DIRECTIONS. AFTER SHE GOT SOME SLEEP HER MENTATION CLEARED. PATIENT REQUIRED 2 LITERS O2 VIA NC WHILE SLEEPING TO MAINTAIN SPO2 >90%. VITAL SIGNS STABLE. WILL CONTINUE TO MONITOR. CALL LIGHT WITHIN REACH.
[2024-04-19 09:19] VITALS: BP 131/77
--- NOTE | 2024-04-19 09:39 | NUR ---
Pt is in recliner at time of bedside report. At this time, she is in bed. Every slight movement she has "severe" pain in her shoulders and particularly her neck. She is afebrile. She is irritable, asking why we keep bothering her and waking her up when she was told she could relax and sleep. Refusing to turn on her side or to sit up so that I can assess her lung sounds. Expresses anger at being bothered to take her medications, states she doesn't want to, but then changed her mind and said, "Just give me the damn pills". Declined heating pad, states no relief. Repositioned in bed per her comfort level. She is sleepy. Falls back to sleep readily after taking meds.
[2024-04-19 09:59] LABS: Percent Saturation 11.4 % (15.0-50.0)
--- NOTE | 2024-04-19 10:42 | NUR ---
Spoke with Faby in infection control. Admin data states d/c isolation 04/19/24 per protocol. Pt has been afebrile. Isolation d/c'd
[2024-04-19] MEDS ORDERED: Lidocaine 4% 1 Patch TOP PRN (10:50)
--- NOTE | 2024-04-19 10:51 | NUR ---
Dr. Leyva here to see the patient.
[2024-04-19 12:46] LABS: Hematocrit 25.5 % (33.0-51.0); Hemoglobin 8.1 g/dL (11.5-16.0)
--- NOTE | 2024-04-19 13:28 | NUR ---
Pt assisted to bed from recliner for staple removal. Left side lying position, all audra were removed and the incision is dry, non swollen, not red, and the edges are well approximated. pt tolerated well. Purewick back in place, at her request.
[2024-04-19] MEDS ORDERED: OxyCODONE 5 mg/Acetamin 325 mg TABLET PO PRN (14:25)
--- NOTE | 2024-04-19 15:42 | NUR ---
Pt c/o headache. Given Tyenol and also an Ice pack which she thought might help with pain relief. States that the lidocaine patch did not help her neck pain at all, but that perhaps the ice will.
[2024-04-19 15:43] VITALS: BP 137/87
--- NOTE | 2024-04-19 16:13 | NUR ---
Pt code status changed to DNR earlier this week as requested by the patient. Met with patient along with son Baldomero and his . POLST filled out last monday night, possibly in pt's room. Today, the patient states she wishes to go home with her son Baldomero and "live out her days there," until she, "Goes with God to [place]." She states she understands this means she won't be returning to the hospital, and will be focused on comfort. Her son Baldomero is also agreeable to this, and is planning to take the patient home with hospice sometime in the next few days.
--- NOTE | 2024-04-19 16:52 | NUR ---
pt states her headache not improved. STates she is a daily caffeine drinker, has not had any today. She was given a pepsi by the PUBLIC HEALTH TECHNICIAN and was encouraged to drink it to see if that will help.
--- NOTE | 2024-04-19 17:16 | NUR ---
Call from Marielos, Prospecting Driller. Plan is for discharge tomorrow with [facility].
--- NOTE | 2024-04-19 17:35 | NUR ---
Prescriptions given to son Baldomero and his who are in the room with the pt. They verbalized understanding and said that they had talked with Samira Deras on the phone, so were aware of the plan to d/c tomorrow on hospice.
--- NOTE | 2024-04-19 17:37 | NUR ---
0900 HAND UPPER AND BOTTOM LACER TIME FOR PATIENT TOMORROW.
--- NOTE | 2024-04-19 18:47 | NUR ---
Telephone report given to JONATHAN Pereira at this time. Pt to transfer to [facility] at this time; family is at bedside.
[2024-04-19 20:03] VITALS: BP 117/68
--- NOTE | 2024-04-20 04:09 | NUR ---
SHIFT SUMMARY JORDAN TRANSFERED TO UNIT AT START OF SHIFT. PT STATES THAT SHE WAS FEELING CONFUSED, BUT SHE WAS ORIENTED TO SELF, FAMILY, AND LOCATION. SHE HAD INCREASED CONFUSION LATER IN THE NIGHT BUT HAD NO BEHAVIORS. PT STATES THAT SHE IS IN 9/10 CHRONIC NECK PAIN. PURWIC IN PLACE, GOOD OUTPUT. INSCISION LINE TO R HIP WITH SCANT SERROUS DRAINAGE. PT DENIES SOB ON RA, AND SATTING >90% PT TO DISCHARGE HOME WITH HOSPICE AT 0900
[2024-04-20 04:21] VITALS: BP 107/67
[2024-04-20 05:04] LABS: BASOPHILS ABSOLUTE AUTO 0.01 K/mm3 (0.00-0.23); BASOPHILS PERCENT AUTO 0 % (0-2); EOSINOPHILS ABSOLUTE AUTO 0.05 K/mm3 (0.00-0.68); EOSINOPHILS PERCENT AUTO 1 % (0-6); Hematocrit 24.4 % (33.0-51.0); Hemoglobin 7.6 g/dL (11.5-16.0); IMMATURE GRAN ABSOLUTE AUTO 0.07 K/mm3 (0.00-0.10); IMMATURE GRAN PERCENT AUTO 1 % (0-1); LYMPHOCYTES ABSOLUTE AUTO 1.01 K/mm3 (0.84-5.20); LYMPHOCYTES PERCENT AUTO 17 % (21-46); MONOCYTES ABSOLUTE AUTO 0.94 K/mm3 (0.16-1.47); MONOCYTES PERCENT AUTO 16 % (4-13); Mean Corpuscular HGB 30.4 pg (26.0-34.0); Mean Corpuscular HGB Conc 31.1 g/dL (31.5-36.5); Mean Corpuscular Volume 98 fL (80-100); NEUTROPHILS ABSOLUTE AUTO 3.88 K/mm3 (1.96-9.15); NEUTROPHILS PERCENT AUTO 65 % (41-73); Platelet Count 361 K/mm3 (150-400); RDW Coefficient Variation 13.9 % (11.7-14.2); RDW Standard Deviation 49.7 fL (35.1-46.3); White Blood Cell Count 5.96 K/mm3 (4.00-11.30)
[2024-04-20 05:27] LABS: Bun/Creatinine Ratio 41.4 (12.0-20.0); Calcium, Blood 8.2 mg/dL (8.5-10.1); Creatinine, Blood 0.36 mg/dL (0.40-1.00); Potassium, Blood 4.2 mmol/L (3.5-5.5)
[2024-04-20 07:10] VITALS: BP 126/92
[2024-04-20] MEDS ORDERED: Ativan1 MG PO (08:57)
[2024-04-20] MEDS ORDERED: MORP20L PO (08:58)
== END 2024-04-20 09:32 | disposition hospice, home (50) | DRG 981 ==
LOC: ER 10:12 → MEDS 10:13 → PCU 04-07 17:20 → SURS 04-19 19:29
PROVIDERS: Family Medicine; Hospitalist; Internal Medicine; Physician Assistant; Student in an Organized Health Care Education/Training Program; ADMIT Student in an Organized Health Care Education/Training Program
PROC: 0QB60ZZ Excision of Right Upper Femur, Open Approach (ICD-10-PCS; principal; 2024-04-10)
DX: L02.415 Cutaneous abscess of right lower limb (principal); J10.00 Influenza due to other identified influenza virus with unspecified type of pneumonia; J96.01 Acute respiratory failure with hypoxia; E46 Unspecified protein-calorie malnutrition; Z66 Do not resuscitate; B95.61 Methicillin susceptible Staphylococcus aureus infection as the cause of diseases classified elsewhere; I34.0 Nonrheumatic mitral (valve) insufficiency; F31.9 Bipolar disorder, unspecified; M54.50 Low back pain, unspecified; Z51.5 Encounter for palliative care; G89.29 Other chronic pain; K21.9 Gastro-esophageal reflux disease without esophagitis; Z96.652 Presence of left artificial knee joint; Z96.651 Presence of right artificial knee joint; I48.91 Unspecified atrial fibrillation; E88.09 Other disorders of plasma-protein metabolism, not elsewhere classified; R62.7 Adult failure to thrive; F41.9 Anxiety disorder, unspecified; R41.0 Disorientation, unspecified; I95.9 Hypotension, unspecified; D52.0 Dietary folate deficiency anemia; M54.2 Cervicalgia; Z86.718 Personal history of other venous thrombosis and embolism; Z79.899 Other long term (current) drug therapy; R54 Age-related physical debility; Z98.1 Arthrodesis status; Z79.51 Long term (current) use of inhaled steroids; Z79.01 Long term (current) use of anticoagulants; Z98.890 Other specified postprocedural states; Z90.710 Acquired absence of both cervix and uterus; Z90.49 Acquired absence of other specified parts of digestive tract; Z79.2 Long term (current) use of antibiotics; Z79.891 Long term (current) use of opiate analgesic; Z86.711 Personal history of pulmonary embolism; Z90.721 Acquired absence of ovaries, unilateral; Z68.21 Body mass index [BMI] 21.0-21.9, adult; Z87.19 Personal history of other diseases of the digestive system
CPT/HCPCS: 0202U; 36415; 71045; 71046; 72040; 80048; 80053; 81001; 82607; 82728; 82746; 82803; 83540; 83550; 83735; 83930; 83935; 84100; 84300; 84478; 84484; 85014; 85018; 85025; 87040; 87070; 87075; 87077; 87086; 87147; 87186; 87205; 88304; 88305; 88311; 93005; 93010; 94640; 94645; 94664; 94762; 96365; 96367; 96376; 97110; 97116; 97161; 97165; 97530; 97535; 99284-25; A9270; G0378; J0456; J0690; J0696; J1885; J2371; J2405; J2704; J3010; J3411; J3475; J7030; J7040; J7050; J7060; J7120